=== PATIENT | female | born 1985 | race Hispanic/Latino ===

== ENCOUNTER 2020-07-07 18:52 | Emergency (ER) | payer BC ==
--- OUTSIDE RECORDS SUMMARY | 2020-07-07 18:55 | XMS REPORT | Summary of Care ---
:1985 Author Organization [facility] Address [address] [place] [address] Care Team Providers Name Role Phone Pcp, Does Not Have A Primary Care Provider Reason for Visit Reason Comments LAB Exposure Headache RUNNY NOSE Encounter Details Date Type Department Care Team Description 04/10/2020 Laboratory Only [facility] Family Micha Johns, FORKLIFT TRUCK OPERATOR [address] [place] [address] Exposure to Medicine - [place], Adc Fam Pob I SARS-associated [address] [facility] coronaviru s ([address] Drive Dx) [place] [address] Allergies No Known Allergiesdocumented as of this encounter (statuses as of 04/10/2020) Medications Medication Sig Dispensed Refills Start Date End Date Status proMETHazine Take 1 Tab by 12 Tab 0 05/15/2015 Ac tive (PHENERGAN) 25 mg mouth every 6 tablet (six) hours as needed for Nausea and Vomiting (N/V). metFORMIN 1,000 mg Take 1,000 mg by 0 Active tablet mouth 2 (two) times daily with meals. fenofibrate micronized Take 134 mg by 0 Active 134 mg capsule mouth daily. benzonatate (TESSALON Take 1 capsule by 30 capsule 0 7 Active PERLES) 100 mg mouth 3 (three) capsuleIndications: times daily as Flu-like symptoms needed for Cough. documented as of this encounter (statuses as of 04/10/2020) Active Problems No known active problemsdocumented as of this encounter (statuses as of 04/10/2020) Social History Tobacco Use Types Packs/Day Years Used Date Never Smoker Sex Assigned at Date Recorded Not on file COVID-19 Exposure Response Date Recorded In the last month, have you been in contact with No / Unsure 04/10/2020 1:41 PM CDT someone who was confirmed or suspected to have Coronavirus / COVID-19? documented as of this encounter Last Filed Vital Signs Not on filedocumented in this encounter Nursing Notes Brisa Delgado RN - 04/10/2020 1:20 PM CDTAnn Suni Butler is a 34 year old female here for COVID Screening with a Nasopharyngeal Swab All droplet and contact precautions taken with appropriate PPE worn while interacting with patient. ? Goggles ? N95 Mask ? Gloves ? Gown RR 18 Pulse Ox 98% Patient educated on plan of care for visit, swabbing technique, risks and benefits of test and length of time to receive results. Verbal consent obtained to perform test. CDC Fact Sheet for Patients nCoV Diagnostic Panel dated 09/22/2019 and Factsheet What to Do if Sick with COVID 19 09/02/19 provided. Patient swabbed per appropriate nasopharyngeal technique, and patient tolerated well. Patient was discharged from the testing clinic in stable condition. Brisa Delgado RN 04/10/2020 1:41 PM documented in this encounter Plan of Treatment Name Type Priority Associated Diagnoses Order S chedule COVID-19 (PCR MOLECULAR LAB Routine Exposure to Expe cted: 04/10/2020, TESTING) SARS-associated Expires: 08/2020 coronavirus documented as of this encounter Results Not on filedocumented in this encounter Visit Diagnoses Diagnosis Exposure to SARS-associated coronavirus - Primary documented in this encounter Additional Health Concerns Infection Onset Date Last Indicated Resolved Time COVID-19 Rule Out 04/10/2020 04/10/2020 documented as of this encounter Insurance Payer Benefit Plan Subscriber ID Effective Dates Phone Address Type / Group [facility] [id number] 2014-Prese [phone] [place] P[place] - OUT OF nt [id number] [place] [address] documented as of this encounter
--- OUTSIDE RECORDS SUMMARY | 2020-07-07 18:55 | XMS REPORT | Continuity of Care Document ---
:1985 Author Organization [facility] t Address [address] [place] [address] Care Team Providers Name Role Phone Lab, Fam Pob I Attending Clinician Unavailable Doctor Unassigned, Name Attending Clinician Unavailable Pcp, Does Not Have A Attending Clinician Problems This patient has no known problems. Allergies, Adverse Reactions, Alerts This patient has no known allergies or adverse reactions. Medications This patient has no known medications. Procedures This patient has no known procedures. Encounters Start End Encounter Admission Attending Care Care Encounter Source Date/Time Date/Time Type Type Clinicians Facility Department ID 2019-09-18 Outpatient [facility] [address]i 16:06:36 lazaro Baer [facility] 2020-04-10 2020-04-10 Laboratory Lab, [facility] [id number] 13:33:36 13:53:36 Only Fam Pob I Health [id number] Force [id number] Professio [phone] nal [address] 2020-04-10 2020-04-10 Letter Doctor FAVIAN [id number] 00:00:00 00:00:00 (Out) Unassigned, CHRISTY [id number] [place] [facility] [id number] 2020-04-10 2020-04-10 Letter Pcp, [facility] [id number] 00:00:00 00:00:00 (Out) Patient Health [id number] Does Not Force [id number] Have A Professio [phone] nal [address] 2019-12-13 2019-12-13 Outpatient [facility] [id number] [facility] 06:10:00 06:10:00 [facility]-01[facility] 2019-01-23 Outpatient [facility] [id number] [facility] 16:41:00 16:41:00 lazaro Baer [facility] Results This patient has no known results.
--- OUTSIDE RECORDS SUMMARY | 2020-07-07 18:55 | XMS REPORT | Summary of Care ---
:1985 Author Organization [facility] Address [address] [place] [address] Care Team Providers Name Role Phone Pcp, Does Not Have A Primary Care Provider Encounter Details Date Type Department Care Team Description 04/10/2020 Letter (Out) [facility] Family Pcp, Patient Does Not Medicine [facility] Have A [address] [place] [address] [address] [place] [address] [place] [address] Allergies No Known Allergiesdocumented as of this [...] Signs Not on filedocumented in this encounter Plan of Treatment Not on filedocumented as of this encounter Results Not on filedocumented in this encounter Additional Health Concerns Infection Onset Date Last Indicated Resolved Time COVID-19 Rule Out 04/10/2020 04/10/2020 documented as of this encounter Insurance Payer Benefit Plan Subscriber ID Effective Dates Phone Address Type / Group [facility] [id number] 2014-Prese [phone] [place] P[place] - OUT OF nt [id number] [place] [address] documented as of this encounter
--- OUTSIDE RECORDS SUMMARY | 2020-07-07 18:55 | XMS REPORT | Summary of Care ---
:1985 Author Organization [facility] - Health Address [address] [place] [address] Care Team Providers Name Role Phone Pcp, Does Not Have A Primary Care Provider Encounter Details Date Type Department Care Team Description 04/10/2020 Letter (Out) [facility] MyChart Message s Doctor Unassigned, No [address] [facility] [place] [address] [address] [facility] [phone] [place] [address] Allergies No Known Allergiesdocumented as of this [...] Assigned at Date Recorded Not on file documented as of this encounter Last Filed Vital Signs Not on filedocumented in this encounter Plan of Treatment Not on filedocumented as of this encounter Results Not on filedocumented in this encounter Insurance Payer Benefit Plan Subscriber ID Effective Dates Phone Address Type / Group BCBS OF [facility] [id number] 2014-Prese [phone] P [place] P[place] - OUT OF nt [id number] [place] [address] documented as of this encounter
--- NOTE | 2020-07-07 20:46 | ER ---
Nurse's Notes [facility] Name: Rosaline Butler Age: 34 yrs Sex: Female : 1985 Arrival Date: 07/07/2020 Time: 18:56 Bed 20 Private MD: Diagnosis: Acute upper respiratory infection, unspecified Presentation: 07/07 19:12 Chief complaint: Patient states: Eyes burning, fever, JEFFERS, runny nose for 1 day. No ll1 N/V/D. Coronavirus screen: Client denies travel out of the [place] in the last 14 days. congestion, fatigue, fever, headache, Client presents with at least one sign or symptom that may indicate coronavirus-19. Standard/surgical mask placed on the client. Ebola Screen: Patient denies travel to an Ebola-affected area in the 21 days before illness onset. Initial Sepsis Screen: Does the patient meet any 2 criteria? HR > 90 bpm. No. Patient's initial sepsis screen is negative. Does the patient have a suspected source of infection? Yes: Other: nasal congestion/fever, JEFFERS. Risk Assessment: Do you want to hurt yourself or someone else? Patient reports no desire to harm self or others. Onset of symptoms was July 07, 2020. 19:12 Method Of Arrival: Ambulatory ll1 19:12 Acuity: NEIL 4 ll1 Historical: - Allergies: 19:15 No Known Allergies; ll1 - PMHx: 19:15 Diabetes - NIDDM; ll1 - PSHx: 19:15 ; lap band; ll1 - Immunization history:: Flu vaccine is up to date. - Social history:: Smoking status: Patient denies any tobacco usage or history of. Screenin:30 Abuse screen: Denies threats or abuse. Nutritional screening: No deficits noted. jb4 Tuberculosis screening: No symptoms or risk factors identified. Fall Risk None identified. Assessment: 19:30 General: Appears in no apparent distress. comfortable, Behavior is calm, cooperative, jb4 appropriate for age. Pain: Complains of pain in headache Pain does not radiate. Pain currently is 1 out of 10 on a pain scale. Neuro: Level of Consciousness is awake, alert, obeys commands, Oriented to person, place, time, situation. Cardiovascular: Respiratory: Airway is patent Respiratory effort is even, unlabored, Respiratory pattern is regular, symmetrical. GI: No signs and/or symptoms were reported involving the gastrointestinal system. : No signs and/or symptoms were reported regarding the genitourinary system. EENT: No signs and/or symptoms were reported regarding the EENT system. Derm: Skin is intact, Skin is pink, warm \T\ dry. Musculoskeletal: Circulation, motion, and sensation intact. Range of motion: intact in all extremities. 20:30 Reassessment: Patient appears in no apparent distress at this time. Patient and/or jb4 family updated on plan of care and expected duration. Pain level reassessed. Patient is alert, oriented x 3, equal unlabored respirations, skin warm/dry/pink. Vital Signs: 19:12 BP 142 / 87; Pulse 114; Resp 18; Temp 99.6; Pulse Ox 98% on R/A; Weight 99.79 kg; ll1 Height 5 ft. 6 in. (167.64 cm); Pain 1/10; 21:12 BP 107 / 73; Pulse 96; Resp 16; Pulse Ox 98% on R/A; jb4 19:12 Body Mass Index 35.51 (99.79 kg, 167.64 cm) ll1 ED Course: 18:56 Patient arrived in ED. mr 19:14 Triage completed. ll1 19:15 Arm band placed on. ll1 19:16 Destinee Herrmann FNP-C is [facility]. kb 19:16 Obie Alford MD is Attending Physician. kb 19:18 Jose Turner MD is Attending Physician. kb 19:30 Patient has correct armband on for positive identification. Bed in low position. Call jb4 light in reach. Side rails up X 1. Pulse ox on. NIBP on. 19:57 Flu and/or RSV swab sent to lab. jp3 20:06 Ramiro Oviedo, RN is Primary Nurse. jb4 21:00 No provider procedures requiring assistance completed. Patient did not have IV access jb4 during this emergency room visit. Administered Medications: No medications were administered Outcome: 20:45 Discharge ordered by . kb 21:00 Discharged to home ambulatory. jb4 21:00 Condition: stable 21:00 Discharge instructions given to patient, Instructed on discharge instructions, follow up and referral plans. Demonstrated understanding of instructions, follow-up care. 21:13 Patient left the ED. jb4 Addendum: 07/09/2020 18:22 Addendum: COVID-19 Result: Negative result given to RN to notify pt. Notified pt of i w negative COVID 19 swab results. Pt advised that even with a negative test result they should remain in isolation until symptom free for 3 days without medication. Pt also advised to return to the ED for worsening symptoms. Signatures: Destinee Herrmann, FORD-C PROFESSOR OF SPANISH-Tea Haynes mr Marlee Jackson RN RN iw Ramiro Oviedo RN RN jb4 Waylon Enriquez jp3 Emma Paula RN RN ll1
--- NOTE | 2020-07-07 20:46 | EDPHYS ---
Physician Documentation [facility] Name: Rosaline Butler Age: 34 yrs Sex: Female : 1985 Arrival Date: 07/07/2020 Time: 18:56 Bed 20 Private MD: ED Physician Jose Turner HPI: 07/07 21:40 This 34 yrs old Female presents to ER via Ambulatory with complaints of Fever, kb Headache. 21:40 The patient or guardian reports flu symptoms, low-grade fever, myalgias. Onset: The kb symptoms/episode began/occurred today. Severity of symptoms: At their worst the symptoms were mild, moderate, in the emergency department the symptoms are unchanged. Modifying factors: The symptoms are alleviated by nothing, the symptoms are aggravated by nothing. Associated signs and symptoms: Pertinent positives: fever, rhinorrhea. The patient has not experienced similar symptoms in the past. The patient has not recently seen a physician. Historical: - Allergies: 19:15 No Known Allergies; ll1 - PMHx: 19:15 Diabetes - NIDDM; ll1 - PSHx: 19:15 ; lap band; ll1 - Immunization history:: Flu vaccine is up to date. - Social history:: Smoking status: Patient denies any tobacco usage or history of. ROS: 21:39 Cardiovascular: Negative for chest pain, palpitations, and edema, Respiratory: Negative kb for shortness of breath, cough, wheezing, and pleuritic chest pain, Abdomen/GI: Negative for abdominal pain, nausea, vomiting, diarrhea, and constipation, MS/Extremity: Negative for injury and deformity, Skin: Negative for injury, rash, and discoloration. 21:39 Constitutional: Positive for body aches, chills, fatigue, fever, malaise. 21:39 ENT: Positive for rhinorrhea. 21:39 Neuro: Positive for headache. Exam: 21:39 Constitutional: This is a well developed, well nourished patient who is awake, alert, kb and in no acute distress. Head/Face: Normocephalic, atraumatic. ENT: Nares patent. No nasal discharge, no septal abnormalities noted. Tympanic membranes are normal and external auditory canals are clear. Oropharynx with no redness, swelling, or masses, exudates, or evidence of obstruction, uvula midline. Mucous membranes moist. Chest/axilla: Normal chest wall appearance and motion. Nontender with no deformity. No lesions are appreciated. Cardiovascular: Regular rate and rhythm with a normal S1 and S2. No gallops, murmurs, or rubs. Normal PMI, no JVD. No pulse deficits. Respiratory: Lungs have equal breath sounds bilaterally, clear to auscultation and percussion. No rales, rhonchi or wheezes noted. No increased work of breathing, no retractions or nasal flaring. Abdomen/GI: Soft, non-tender, with normal bowel sounds. No distension or tympany. No guarding or rebound. No evidence of tenderness throughout. Skin: Warm, dry with normal turgor. Normal color with no rashes, no lesions, and no evidence of cellulitis. MS/ Extremity: Pulses equal, no cyanosis. Neurovascular intact. Full, normal range of motion. Neuro: Awake and alert, GCS 15, oriented to person, place, time, and situation. Cranial nerves II-XII grossly intact. Motor strength 5/5 in all extremities. Sensory grossly intact. Cerebellar exam normal. Normal gait. Vital Signs: 19:12 BP 142 / 87; Pulse 114; Resp 18; Temp 99.6; Pulse Ox 98% on R/A; Weight 99.79 kg; ll1 Height 5 ft. 6 in. (167.64 cm); Pain 1/10; 21:12 BP 107 / 73; Pulse 96; Resp 16; Pulse Ox 98% on R/A; jb4 19:12 Body Mass Index 35.51 (99.79 kg, 167.64 cm) ll1 MDM: 19:34 Patient medically screened. kb 21:39 Data reviewed: vital signs, nurses notes. Data interpreted: Pulse oximetry: on room air kb is 98 %. Interpretation: normal. Counseling: I had a detailed discussion with the patient and/or guardian regarding: the historical points, exam findings, and any diagnostic results supporting the discharge/admit diagnosis, lab results, the need for outpatient follow up, a family practitioner, to return to the emergency department if symptoms worsen or persist or if there are any questions or concerns that arise at home. 07/07 19:19 Order name: Flu; Complete Time: 20:51 kb 07/07 20:45 Order name: COVID-19 kb Administered Medications: No medications were administered Disposition: 07/08 06:49 Co-signature as Attending Physician, Jose Turner MD I agree with the assessment and anuel plan of care. Disposition: 07/07/20 20:45 Discharged to Home. Impression: Acute upper respiratory infection, unspecified. - Condition is Stable. - Discharge Instructions: Upper Respiratory Infection, Adult, [place], COVID-19. - Medication Reconciliation Form, Thank You Letter, Antibiotic Education, Prescription Opioid Use form. - Follow up: Emergency Department; When: As needed; Reason: Worsening of condition. Follow up: Private Physician; When: 2 - 3 days; Reason: Recheck today's complaints, Continuance of care, Re-evaluation by your physician. Signatures: Dispatcher [employer] EDMS Destinee Herrmann, COURT ORDERLY-C COURT ORDERLY-Ckb Jose Turner MD MD cha Bryson, James RN RN jb4 Emma Paula RN RN ll1 Corrections: (The following items were deleted from the chart) 07/07 20:46 20:45 07/07/2020 20:45 Discharged to Home. Impression: Acute upper respiratory kb infection, unspecified. Condition is Stable. Forms are Medication Reconciliation Form, Thank You Letter, Antibiotic Education, Prescription Opioid Use. kb 21:13 20:46 07/07/2020 20:45 Discharged to Home. Impression: Acute upper respiratory jb4 infection, unspecified. Condition is Stable. Forms are Medication Reconciliation Form, Thank You Letter, Antibiotic Education, Prescription Opioid Use. Follow up: Emergency Department; When: As needed; Reason: Worsening of condition. Follow up: Private Physician; When: 2 - 3 days; Reason: Recheck today's complaints, Continuance of care, Re-evaluation by your physician. kb
[2020-07-07 21:16] VITALS: TEMP 99.6; O2SAT 98
[2020-07-07 21:18] VITALS: BP 107/73
== END 2020-07-07 21:13 | disposition home or self-care (01) ==
LOC: ER 18:52
DX: J06.9 Acute upper respiratory infection, unspecified (principal); Z20.828 Contact with and (suspected) exposure to other viral communicable diseases; E11.9 Type 2 diabetes mellitus without complications
CPT/HCPCS: 87804; 99283; U0002

== ENCOUNTER 2024-04-15 04:44 | Inpatient (IN) | payer BC, SELFPAY ==
--- OUTSIDE RECORDS SUMMARY | 2024-04-15 04:49 | XMS REPORT | Continuity of Care Document ---
Author Name Unknown Address [address] [facility]. [address] [place] [address] [facility] thconnect Address [address] [facility] [address] [place] [address] Support Name Relationship Address Phone NANCY HAN [address] [place] [address] CARTERALISONALBERTGIUSEPPE KOO [address] [place] [address] NANCY HAN [address] [place] [address] NOT OBTAINED Personal Relationship Unknown Unavai radha NANCY HAN [address] [place] [id number] Nancy Han Spouse [address] [place] [address] Fernando Han Personal Relationship [address] [place] [id number] Nancy Han Emergency Contact [address] [place] [address] NANCY MERIDA CSN [address] [place] [address] 1 NANCY [address] [place] [address] Unavailable 2 Personal Relationship [address] [place] [address] Unavailable NANCY HAN Unknown [phone] ALBRET [address] [place] [address] Unavailable 3 ALBERT [address] [facility] [place] [address] Unavailable 4 Personal Relationship [address] [place] [address] Unavailable ALBERT MACHADO [facility] [address] [place] [address] 1 NANCY Unknown Unavailable Unavailable Personal Relationship [address] [place] [address] Unavailable NANCY HAN X [address] [place] [address] Unavailable PATIENT, NO ONE ELSE PER Personal Relationship Unknown Unavailable L Nancy Han Spouse [address] [place] [address] one else per patient, No Emergency Contact Unknown Unavailable Care Team Providers Care Food Service Counter Clerk Name Role Phone Garfield HULL, Ollie [place] Primary Care Physician Sharon Yin Attending Clinician Unavail able JOAQUIN EDGAR Attending Clinician Un available TAM CONNORS Attending Clinician Unavailable Tam Connors MD Attending Clinician [phone] TASHA COBB Attending Clinician Unavailable Tasha Cobb MD Attending Clinician [phone] MANUEL PATHAK Attending Clinician Unav Rishabh Wilcox Attending Clinician Unavailable Edelmira Roberson LVN Attending Clinician [phone] Doctor Unassigned, Chamizal Attending Clinician U LAUREN Gannon Attending Clinician UnavailLauren Bell MD Attending Clinician [phone] CHAITANYA BLOOM Attending Clinician U OLLIE Mari Attending Clinician Unava ilLUCY Faye Attending Clinician UnavailAyala Zambrano MD Attending Clinician [phone] ROSENDO KEENAN Attending Clinician Unavailable Nurse, [facility] Surgery Gu Attending Clinician Rosendo Steward MD Attending Clinician [phone] Only, [facility] Test Attending Clinician Unavailable CHARITO SHER Attending Clinician Unavailable Charito Nieves Attending Clinician [phone] Lucy Persaud Attending Clinician [phone] Ashish Ridley MD Attending Clinician [phone] UNKNOWN, ATTENDING Attending Clinician Unavailab ean Cortes MD, Yelena Fuller Attending Clinician + Unknown, Attending Attending Clinician Unavailab Ahsan Thapa MD Attending Clinician [phone] VALENCIA FREEMAN Attending Clinician Unavailable PROVIDER, EVISIT Attending Clinician Unavailable LAB90 Attending Clinician Unavailable Garfield HULL, Ollie [place] Attending Clinician [phone] SCOTT YANG Attending Clinician Unavailabl e MINISTERIOLUPE BUCHANAN Attending Clinician Unavailabl e Only, Ang Db Test Attending Clinician Unavailabl e Ministerio NURSE'S COMPANIONLupe Attending Clinician [phone] Kizzy Harden NP Attending Clinician [phone] Lab, Adc Fam Pob I Attending Clinician Unavailab Yolanda Toscano Attending Clinician [phone] YOLANDA JOHNS Attending Clinician Unavailable Pcp, Patient Does Not Have A Attending Clinician JOAQUIN EDGAR Admitting Clinician Un available TAM CONNORS Admitting Clinician Unavailable Simeon Ordonez Admitting Clinician LAUREN Mullen Admitting Clinician UnavailLauren Bell MD Admitting Clinician [phone] ROSENDO KEENAN Admitting Clinician Unavailable Rosendo Keenan MD Admitting Clinician [phone] CHARITO SHER Admitting Clinician Unavailable AHSAN MALIN Admitting Clinician Unavailable Ahsan Malin MD Admitting Clinician [phone] Payers Payer Name Policy Type Policy Number Effective Date Expirati on Date Source [facility] [id number] 2014 00:00:00 [facility] 6 [id number] 2023 00:00:00 [facility] 2 [id number] 2022 00:00:00 Problems Condition Name Condition Details Condition Category Status Onset Date Resolution Date Last Treatment Date Treating Clinician Comments Source Pancreatit is, unspecifie d pancreatit is type Pancreatit is, unspecifie d pancreatit is type Disease Active 04-06 00:00: [address] 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 Added automatic ally from request for surgery [id number] [facility] Calculus of kidney Calculus of kidney Disease Active 01-31 00:00: 00 Overview: Formattin g of this note might be different from the original. Added automatic ally from request for surgery [id number] [facility] [id number] Type 2 diabetes mellitus without complicati on, without long-term current use of insulin Problem [facility] [id number] Attention deficit hyperactiv ity disorder (ADHD), predominan tly inattentiv e type Problem [facility] [id number] Microcytic anemia Problem [facility] [id number] Fatty liver Problem [facility] [id number] Mixed hyperlipid emia Problem [facility] [id number] Hypertrigl yceridemia Problem [facility] [id number] Morbid (severe) obesity due to excess calories Problem [facility] [id number] NICK (generaliz ed anxiety disorder) Problem [facility] [id number] BMI 33.0-33.9, adult Problem [facility] [id number] Familial hypertrigl yceridemia Problem [facility] [id number] History of pancreatit is Problem [facility] [id number] PCOS (polycysti c ovarian syndrome) Problem [facility] [id number] Vitamin D deficiency Problem [facility] Allergies, Adverse Reactions, Alerts Allergy Name Allergy Type Status Severity Reaction(s) Onset Date Inactive Date Treating Clinician Comments Source No Known Allergie s DA Active U 2022-07 00:00: 00 [facility] No Known Allergie s DA Active U 07-18 00:00: 00 [facility] NO KNOWN ALLERGIE S Drug Class Active [facility] Social History Social Habit Start Date Stop Date Quantity Comments Source Gender identity 2021-08-06 09:39:59 Identifies as female gender (finding) Meghan Plascencia - External History of Tobacco Use [facility] Sex Assigned At [facility] Alcoholic beverage intake 2023-11-18 00:00:00 2023-11-18 00:00:00 Lifetime non-drinker (finding) [facility] Alcohol intake 2023-04-14 00:00:00 2023-04-14 00:00:00 Lifetime non-drinker (finding) [facility] Tobacco use and exposure 2023-04-06 00:00:00 2023-04-06 00:00:00 Smokeless tobacco non-user [facility] Exposure to SARS-CoV-2 (event) 2022-02-04 00:00:00 2022-02-14 12:47:00 Not sure [facility] History of Social function 2022-02-10 00:00:00 2022-02-10 00:00:00 [facility] Smoking Status Start Date Stop Date Source Never smoked tobacco [facility] Medications Ordered Medication Name Filled Medication Name Start Date Stop Date Current Medication? Ordering Clinician Indication Dosage Frequency Signature (SIG) Comments Components Source Phentermine HCl 37.5 MG Phentermine HCl 37.5 MG 625 00:00: 00 No QD Phentermin e HCl 37.5 MG iopamidol (ISOVUE 370-500 mL) injection 100 mL 11-18 03:00: 00 11-18 03:00 :00 No [id number] 100mL 100 mL, Intravenou s, ONCE, 1 dose, On 11/18/23 at 2200, Routine [facility] FENTanyl PF (SUBLIMAZE (PF)) injection 50 mcg 11-18:15: 00 11-18 00:21 :00 No 50ug 50 mcg, Slow IV Push, ONCE, 1 dose, On 11/18/23 at 2015, Routine [facility] cefTRIAXone (ROCEPHIN) 1,000 mg in NaCl 0.9% (NS) 100 mL MINI-BAG 11-18 00:30: 00 11-18 01:32 :00 No 1000mg 1,000 mg, IV Piggyback, ONCE, 1 dose, On 11/18/23 at 1930, Administer over 30 Minutes, 100 mL, Reason for Anti-Infec tive: Documented Infection, Documented Infection Site: Urine, Duration of Therapy: Once (ED) [facility] famotidine (PEPCID (PF)) injection 20 mg 11-17 23:15: 00 11-17 22:28 :00 No 20mg 20 mg, Slow IV Push, ONCE NOW, 1 dose, On [facility] 11/18/23 at 1815, LISA [facility] hyoscyamine sulfate (LEVSIN/SL) sublingual tablet 0.25 mg 11-17 23:15: 00 11-17 22:25 :00 No .25mg 0.25 mg, Sublingual , ONCE NOW, 1 dose, On [facility] 11/18/23 at 1815, Routine [facility] NaCl 0.9% (NS) bolus infusion 1,000 mL 11-17 23:00: 00 11-17 23:16 :00 No 1000mL at 999 mL/hr, 1,000 mL, IV Piggyback, ONCE, 1 dose, On 11/18/23 at 1800, STAT [facility] ketorolac (TORADOL) injection 30 mg 11-17 23:00: 00 11-17 22:29 :00 No 30mg 30 mg, Slow IV Push, ONCE NOW, 1 dose, On 11/18/23 at 1800, LISA [facility] ondansetron 4 mg disintegrat ing tablet 11-17 00:00: 00 Yes [id number] 4mg Take 1 tablet by mouth every 8 (eight) hours as needed for Nausea and Vomiting (N/V). [facility] cefpodoxime 100 mg tablet 11-17 00:00: 00 11-25 04:59 :00 No [id number] 100mg Take 1 tablet by mouth in the morning and 1 tablet in the evening. Do all this for [address] [facility] HYDROcodone -acetaminop hen 5-325 mg tablet 11-17 00:00: 00 11-25 04:59 :00 No [id number] 1{tbl} Take 1 tablet by mouth every 4 (four) hours as needed for Pain (scale 1-3) for up to 7 days. Indication s: acute pain [facility] BD Insulin Syringe Ultrafine 30G X 1/2" 0.5 ML BD Insulin Syringe Ultrafine 30G X 1/2" 0.5 ML 10-02 00:00: 00 No BD Insulin Syringe Ultrafine 30G X 1/2" 0.5 ML Lantus 100 UNIT/ML Lantus 100 UNIT/ML 09-21 00:00: 00 No QD Lantus 100 UNIT/ML Iron (Ferrous Sulfate) 325 (65 Fe) MG Iron (Ferrous Sulfate) 325 (65 Fe) MG 09-21 00:00: 00 No 1{table t} Iron (Ferrous Sulfate) 325 (65 Fe) MG Fish Oil Double Strength 1200 MG Fish Oil Double Strength 1200 MG 09-21 00:00: 00 No 1{capsu le} TID Fish Oil Double Strength 1200 MG ondansetron (ZOFRAN-ODT ) disintegrat ing tablet 4 mg 08-15 22:45: 00 08-15 22:18 :00 No 4mg 4 mg, Oral, ONCE, 1 dose, On Mon08/15/23 at 1645, [facility] acetaminoph en (TYLENOL) tablet 975 mg 08-15 22:15: 00 08-15 21:08 :00 No 975mg 975 mg, Oral, ONCE, 1 dose, On Mon08/15/23 at 1615, LISA [facility] penicillin g benzathine (BICILLIN L-A) injection 1.2 Million Units 08-15 22:00: 00 08-15 22:15 :00 No 1.210 1.2 Million Units, Intramuscu lar, ONCE, 1 dose, On Mon08/15/23 at 1600, LISA
Re ason for Anti-Infec tive: Documented Infection< br>Documen myra Infection Site: HEENT
D uration of Therapy: Other (see Comments) [facility] HYDROcodone -acetaminop hen (NORCO) 10-325 mg tablet 1 tablet 08-15 21:55: 32 Yes 1{tbl} 1 tablet, Oral, Q6HPRN, Starting on Mon08/15/23 at 1555, Until Discontinu ed, LISA, Pain (scale 4-6) [facility] ibuprofen (IBU) tablet 600 mg 08-15 21:15: 00 08-15 21:08 :00 No 600mg 600 mg, Oral, ONCE, 1 dose, On Mon08/15/23 at 1515, LISA [facility] ondansetron 4 mg disintegrat ing tablet 08-15 00:00: 00 11-17 00:00 :00 No [id number] 4mg Take 1 tablet by mouth every 4 (four) hours as needed for Nausea and Vomiting (N/V). [facility] naproxen 500 mg tablet 08-15 00:00: 00 08-26 05:59 :00 No [id number] 500mg Take 1 tablet by mouth in the morning and 1 tablet in the evening. Take with meals. Do all this for [address] [facility] HYDROcodone -acetaminop hen 5-325 mg tablet 08-15 00:00: 00 08-23 05:59 :00 No [id number] 1{tbl} Take 1-2 tablets by mouth every 6 (six) hours as needed for Pain (scale 4-6) for up to 7 days. Indication s: acute pain [facility] Vitamin D3 125 MCG (5000 UT) Vitamin D3 125 MCG (5000 UT) 1-03 00:00: 00 No 1{capsu le} QD Vitamin D3 125 MCG (5000 UT) cetirizine 10 mg tablet 2022-07 0-08 00:00: 00 Yes [id number] 10mg Take 1 tablet by mouth in the morning. [facility] amLODIPine 5 mg tablet 2022-07 00:00: 00 05-17 05:59 :00 No [id number] 5mg Take 1 tablet by mouth in the morning for [address] [facility] ferrous sulfate 325 mg (65 mg iron) tablet 2022-07 00:00: 00 05-17 05:59 :00 No [id number] 325mg Take 1 tablet by mouth in the morning for [address] [facility] ibuprofen 400 mg tablet 2022-07 00:00: 00 Yes [id number] 400mg Take 1 tablet by mouth every 8 (eight) hours as needed for Temp > 38.[address] [facility] acetaminoph en 325 mg tablet 2022-07 0 00:00: 00 04-15 04:59 :00 No [id number] 650mg Take 2 tablets by mouth every 6 (six) hours as needed for Temp > 38.5 C or Pain (scale 1-3). [facility] lisinopriL 20 mg tablet 2022-07 0 00:00: 00 05-16 05:59 :00 No [id number] 20mg Take 1 tablet by mouth in the morning and 1 tablet in the evening. Do all this for [address] [facility] LOVAZA, omega-3-aci d ethyl esters, 1 gram capsule 2022-07 0 00:00: 00 05-16 05:59 :00 No [id number] 2g Take 2 capsules by mouth in the morning and 2 capsules in the evening. Do all this for [address] [facility] ferrous sulfate tablet 325 mg 2022-07 14:00: 00 Yes 325mg 325 mg, Oral, DAILY, First dose on Mon04/14/23 at 0900, Until Discontinu ed, [facility] KCL (KLOR-CON M20) tablet 40 mEq 2022-07 0 05:22: 00 04-13 05:43 :00 No 40meq 40 mEq, Oral, ONCE, 1 dose, On Kathy 04/13/23 at 0030, [facility]ine [facility] iopamidol (ISOVUE 370-500 mL) injection 80 mL 2022-07 0 01:15: 00 04-13 01:15 :00 No [id number] 80mL 80 mL, Intravenou s, ONCE, 1 dose, On Mon04/12/23 at 2015, Routine [facility] sennosides- docusate sodium (SENOKOT-S) 8.6-50 mg per tablet 1 tablet 2022-07 01:00: 00 Yes 1{tbl} 1 tablet, Oral, BID, First dose on Mon04/10/23 at 2000, Until Discontinu ed, Routine [facility] ibuprofen (IBU) tablet 400 mg 2022-07 22:38: 28 Yes 400mg 400 mg, Oral, Q8HPRN, Starting on Mon04/10/23 at 1738, Until Discontinu ed, Routine, Temp > 38.[address] [facility] polyethylen e glycol 3350 powder 17 g 2022-07 22:15: 00 Yes 17g 17 g, Oral, DAILY, First dose on Mon04/10/23 at 1715, Until Discontinu ed, Routine [facility] ceFAZolin (ANCEF) 2,000 mg in NaCl 0.9% (NS) 100 mL MINI-BAG 2022-07 21:15: 00 04-14 16:24 :05 No 2000mg 2,000 mg, Intravenou s, Q8H ABX, 21 doses, First dose on Mon04/10/23 at 1615, Last dose on Mon04/17/23 at 0815, Administer over 30 Minutes, 100 mL
Reas on for Anti-Infec tive: Documented Infection< br>Documen myra Infection Site: Urine
D uration of Therapy: 7 days [facility] vancomycin 1,250 mg in NaCl 0.9% (NS) 250 mL VIAL-MATE IV piggyback 2022-07 17:45: 00 04-10 20:03 :45 No 1250mg 1,250 mg, IV Piggyback, Q8H ABX, First dose on Mon04/10/23 at 1245, Until Discontinu ed, Administer over 90 Minutes, 250 mL
Reas on for Anti-Infec tive: Documented Infection< br>Documen myra Infection Site: Urine
D uration of Therapy: [address] [facility] meropenem (MERREM) 1,000 mg in NaCl 0.9% (NS) 100 mL MINI-BAG 2022-07 14:00: 00 04-10 20:03 :45 No 1000mg 1,000 mg, IV Piggyback, Q8H ABX, 21 doses, First dose (after last modificati on) on Mon04/10/23 at 0900, Last dose on Mon04/17/23 at 0100, Administer over 3 Hours, 100 mL
Rest ricted use approved by: [facility]
Reason for Anti-Infec tive: Documented Infection< br>Documen myra Infection Site: Abdominal< br>Duratio n of Therapy: [address] [facility] KCL (KLOR-CON M20) tablet 40 mEq 04-08 21:15: 00 04-08 21:29 :00 No 40meq 40 mEq, Oral, ONCE, 1 dose, On Mon04/08/23 at 1615, Routine [facility] vancomycin (VANCOCIN) 1,500 mg in NaCl 0.9% (NS) 500 mL VIAL-MATE IV piggyback 04-08 20:30: 00 04-10 13:57 :46 No 15mg/kg 1,500 mg (rounded from 1,597.5 mg = 15 mg/kg ?106.5 kg), IV Piggyback, Q12H ABX, 14 doses, First dose on 04/08/23 at 1545, Last dose on Mon04/15/23 at 0345, Administer over 90 Minutes, 500 mL
Reas on for Anti-Infec tive: Documented Infection< br>Documen myra Infection Site: Urine
D uration of Therapy: [address] [facility] calcium gluconate 2 g in NaCl 100 mL (ISO-OSM) RTU IV infusion 2 g 04-08 00:45: 00 04-08 01:52 :00 No 2g 2 g, IV Infusion, at 200 mL/hr Administer over 30 Minutes, ONCE, 1 dose, On Mon04/07/23 at 1945, Routine [facility] ketorolac (TORADOL) injection 30 mg 04-07 23:30: 00 04-08 17:23 :00 No 30mg 30 mg, Slow IV Push, Q6H, 4 doses, First dose on Mon04/07/23 at 1830, Last dose on Mon04/08/23 at 1200, Routine [facility] butalbital- acetaminoph en-caff (ESGIC) 50-325-40 mg tablet 1 tablet 04-07 21:24: 27 Yes 1{tbl} 1 tablet, Oral, Q4HPRN, Starting on Mon04/07/23 at 1624, Until Discontinu ed, Routine, Headache [facility] Sliding Scale Insulin - Lispro (HumaLOG) 04-07 17:00: 00 Yes Subcutaneo us, TID MEALS+HS, First dose on Mon04/07/23 at 1200, Until Discontinu ed, Routine [facility] cefTRIAXone (ROCEPHIN) 1,000 mg in NaCl 0.9% (NS) 100 mL MINI-BAG 04-07 16:15: 00 04-10 13:18 :22 No 1000mg 1,000 mg, IV Piggyback, Q24H ABX, 7 doses, First dose on Mon04/07/23 at 1115, Last dose on Mon04/13/23 at 1115, Administer over 30 Minutes, 100 mL
Reas on for Anti-Infec tive: Documented Infection< br>Documen myra Infection Site: Urine
D uration of Therapy: [address] [facility] dextrose 50 % in water (D50W) injection 25 mL 04-07 15:12: 53 Yes 25mL 25 mL, Slow IV Push, PRN, Starting on Mon04/07/23 at 1012, Until Discontinu ed, LISA, Blood Glucose < or = 70 mg/dL and patient is NPO, unable to swallow or has mental status changes. [facility] cetirizine (ZYRTEC) tablet 10 mg 04-07 14:00: 00 Yes 10mg 10 mg, Oral, DAILY, First dose on Mon04/07/23 at 0900, Until Discontinu ed, Routine [facility] D5W 0.9% NaCl (NS) IV infusion 1,000 mL 04-07 13:48: 14 04-07 17:39 :36 No 1000mL at 75 mL/hr, 1,000 mL, IV Infusion, PRN - SEE INSTRUCTIO NS, Starting on Mon04/07/23 at 0848, Until Mon04/07/23 at 1239, LISA [facility] iopamidol (ISOVUE 370-500 mL) injection 85 mL 04-07 03:15: 00 04-07 03:15 :00 No [id number] 85mL 85 mL, Intravenou s, ONCE, 1 dose, On Mon04/06/23 at 2215, Routine [facility] ketorolac (TORADOL) injection 30 mg 04-07 02:00: 00 04-07 01:54 :00 No 30mg 30 mg, Slow IV Push, ONCE, 1 dose, On Mon04/06/23 at 2100, Routine [facility] enoxaparin (LOVENOX) injection 40 mg 04-06 22:00: 00 04-07 15:06 :57 No 40mg 40 mg, Subcutaneo us, DAILY, First dose on Mon04/06/23 at 1700, Until Discontinu ed, Routine [facility] amLODIPine (NORVASC) tablet 5 mg 04-06 20:00: 00 Yes 5mg 5 mg, Oral, DAILY, First dose on Mon04/06/23 at 1500, Until Discontinu ed, Routine [facility] HYDROmorpho ne (DILAUDID) injection 0.5 mg 04-06 18:55: 18 04-08 12:46 :47 No .5mg 0.5 mg, Slow IV Push, Q4HPRN, Starting on Mon04/06/23 at 1355, Until 04/08/23 at 0746, Routine, Pain (scale 7-10)
U se approved by (Faculty): [facility] PROVIDER [facility] HYDROcodone -acetaminop hen (NORCO 5) 5-325 mg tablet 1 tablet 04-06 18:55: 04 Yes 1{tbl} 1 tablet, Oral, Q6HPRN, Starting on Mon04/06/23 at 1355, Until Discontinu ed, Routine, Pain (scale 4-6) [facility] acetaminoph en (TYLENOL) tablet 650 mg 04-06 18:54: 48 Yes 650mg 650 mg, Oral, Q6HPRN, Starting on Mon04/06/23 at 1354, Until Discontinu ed, Routine, Temp > 38 C, Pain (scale 1-3) [facility] lisinopriL (PRINIVIL,Z ESTRIL) tablet 20 mg 04-06 15:45: 00 Yes 20mg 20 mg, Oral, BID, First dose on Mon04/06/23 at 1045, Until Discontinu ed, Routine [facility] insulin regular in 0.9 % NaCl (MYXREDLIN) 100 unit/100 mL (1 unit/mL) RTU IV infusion 04-06 15:45: 00 04-07 13:48 :52 No .15U/kg /h 0.15 Units/kg/h r ?105 kg (15.75 mL/hr), IV Infusion, CONTINUOUS , Starting on Mon04/06/[address] insulin infusion at 0.1 u/kg/hr and keep fixed at that rate. Hold insulin infusion x 1 hour and NHO if BG < 140 mg/dL for instructio ns to increase dextrose fluids. Restart once BG >/= 140 mg/dL
[facility] LOVAZA (omega-3-ac id ethyl esters) capsule 2 g 04-06 13:00: 00 Yes 2g 2 g, Oral, TID, First dose on Mon04/06/23 at 0800, Until Discontinu ed, Routine [facility] gemfibroziL (LOPID) tablet 600 mg 04-06 13:00: 00 Yes 600mg 600 mg, Oral, TID, First dose on Mon04/06/23 at 0800, Until Discontinu ed, Routine [facility] HYDROmorpho ne (DILAUDID) injection 0.5 mg 04-06 12:47: 47 04-06 18:55 :28 No .5mg 0.5 mg, Slow IV Push, Q4HPRN, Starting on Mon04/06/23 at 0747, Until Mon04/06/23 at 1355, Routine, Pain (scale 4-6), Pain (scale 7-10)
U se approved by (Faculty): [facility] PROVIDER [facility] insulin regular in 0.9 % NaCl (MYXREDLIN) 100 unit/100 mL (1 unit/mL) RTU IV infusion 04-06 10:30: 00 04-06 15:43 :28 No .1U/kg/ h 0.1 Units/kg/h r ?105 kg (10.5 mL/hr), IV Infusion, CONTINUOUS , Starting on Mon04/06/[address] insulin infusion at 0.1 u/kg/hr and keep fixed at that rate. Hold insulin infusion x 1 hour and NHO if BG < 140 mg/dL for instructio ns to increase dextrose fluids. Restart once BG >/= 140 mg/dL
[facility] dextrose 10% (D10W) bolus infusion 250 mL 04-06 09:16: 56 Yes 250mL 250 mL, IV Infusion, PRN - SEE INSTRUCTIO NS, Administer over 60 Minutes, Other, If blood glucose is < or = 70 mg/dL and patient is unable to swallow or has mental status changes, Starting on Kathy 04/06/23 at 0416
If blood glucose is < or = 70 mg/dL and patient is unable to swallow or has mental status changes (Give glucagon order if patient needs fluid restrictio n): IF IV access available: Dextrose 10%. 1. 125 mL (? bag) of D10W IV infusion - equivalent to 12.5 g dextrose 2. Blood glucose - draw blood glucose 15 minutes after D10W Administra tion. 3. If blood glucose is < 80 mg/dL, repeat.
[facility] glucagon (GLUCAGEN DIAGNOSTIC KIT) injection 1 mg 04-06 09:16: 33 Yes 1mg 1 mg, Intramuscu lar, PRN, Starting on Mon04/06/23 at 0416, Until Discontinu ed, LISA, Blood Glucose < or = 70 mg/dL and patient is NPO, unable to swallow or has mental changes. [facility] D5W 0.9% NaCl (NS) IV infusion 1,000 mL 04-06 09:08: 29 04-07 13:48 :52 No 1000mL at 200 mL/hr, 1,000 mL, IV Infusion, PRN - SEE INSTRUCTIO NS, Starting on Mon04/06/23 at 0408, Until Mon04/07/23 at 0848, LISA [facility] ondansetron (ZOFRAN (PF)) injection 4 mg 04-06 08:20: 30 Yes 4mg 4 mg, Slow IV Push, Q6HPRN, Starting on Mon04/06/23 at 0320, Until Discontinu ed, Routine, Nausea and Vomiting (N/V) [facility] morpHINE (2 mg/mL) injection 2 mg 04-06 08:20: 16 04-06 12:48 :19 No 2mg 2 mg, Intravenou s, Q3HPRN, Starting on Mon04/06/23 at 0320, Until Mon04/06/23 at 0748, Routine, Pain (scale 7-10), Pain (scale 4-6) [facility] metFORMIN 1,000 mg tablet 04-06 03:22: 17 04-06 00:00 :00 No 1000mg Take 1,000 mg by mouth 2 (two) times daily with meals. [facility] levoFLOXaci n (Levaquin) 750 MG oral Tablet 10-19 00:00: 00 Yes [id number] 750mg Take 1 tablet (750 mg total) by mouth daily Meghan willis Phenazopyri dine HCl (Pyridium) 100 MG oral Tablet 10-19 00:00: 00 Yes [id number] 100mg [id number] 3D Take 1 tablet (100 mg total) by mouth 3 times daily as needed for pain Meghan willis Semaglutide (2 mg/dose) 8 mg/3 mL SQ Solution Pen-Injecto r 08-16 00:00: 00 Yes [id number] 2mg Inject 2 mg into the skin once a week Meghan willis Tirzepatide (Mounjaro) 2.5 MG/0.5ML subcutaneou s Solution Pen-injecto r 1-30 00:00: 00 08-16 00:00 :00 No [id number] 2.5mg Inject 0.5 mL (2.5 mg total) into the skin once a week Meghan willis Tirzepatide 2.5 MG/0.5ML subcutaneou s Solution Pen-injecto r 2021-07 2 00:00: 00 Yes [id number] 2.5mg Inject 0.5 mL (2.5 mg total) into the skin once a week Meghan willis Metformin HCl 1000 MG oral Tablet 03-06 00:00: 00 Yes [id number] 1000mg TAKE 1 TABLET (1,000 MG TOTAL) BY MOUTH IN THE MORNING AND 1 TABLET (1,000 MG TOTAL) IN THE EVENING. TAKE WITH MEALS. Meghan willis tamsulosin 0.4 mg 24 hr capsule 02-11 00:00: 00 04-06 00:00 :00 No [id number] .4mg Take 1 capsule by mouth every morning. [facility] cephALEXin 250 mg capsule 02-11 00:00: 00 02-17 04:59 :00 No [id number] 500mg Take 2 capsules by mouth every 12 (twelve) hours for [address] [facility] ondansetron (ZOFRAN (PF)) injection 4 mg 02-10 18:29: 24 Yes 4mg 4 mg, Slow IV Push, Q4HPRN, 1 dose, Starting on Kathy 02/10/22 at 1329, Until Discontinu ed, Routine, Nausea and Vomiting (N/V), DSU Recovery [facility] lactated ringers IV infusion 1,000 mL 02-10 17:45: 00 Yes 1000mL at 75 mL/hr, 1,000 mL, IV Infusion, CONTINUOUS , Starting on Kathy 02/10/22 at 1245, Until Discontinu ed, Routine, PACU [facility] FENTanyl PF (SUBLIMAZE (PF)) injection 25 mcg 02-10 17:32: 48 Yes 25ug 25 mcg, Slow IV Push, Q5MIN PRN, 4 doses, Starting on Kathy 02/10/22 at 1232, Until Discontinu ed, Routine, Pain (scale 4-6), PACU [facility] ondansetron (ZOFRAN (PF)) injection 4 mg 02-10 17:32: 48 Yes 4mg 4 mg, Slow IV Push, PRN, 1 dose, Starting on Kathy 02/10/22 at 1232, Until Discontinu ed, Routine, Nausea and Vomiting (N/V), PACU [facility] iohexoL (OMNIPAQUE 300-50 mL)) injection 02-10 15:47: 00 02-10 17:14 :13 No PRN, Starting on Kathy 02/10/22 at 1047, Until Kathy 02/10/22 at 1214, Routine, Intra-op [facility] water for irrigation irrigation solution 02-10 15:44: 00 02-10 17:14 :13 No PRN, Starting on Mon02/10/22 at 1044, Until Mon02/10/22 at 1214, Routine, Intra-op [facility] sodium chloride 0.9 % irrigation solution 02-10 15:44: 00 02-10 17:14 :13 No PRN, Starting on Mon02/10/22 at 1044, Until Mon02/10/22 at 1214, Intra-op [facility] metFORMIN 1,000 mg tablet 02-10 13:58: 39 Yes 1000mg Take 1,000 mg by mouth 2 (two) times daily with meals. [facility] enoxaparin (LOVENOX) injection 40 mg 02-10 13:45: 00 02-10 13:42 :00 No 40mg 40 mg, Subcutaneo us, ONCE, 1 dose, On Mon02/10/22 at 0845, Routine, DSU Pre-op [facility] iopamidol (ISOVUE 370-500 mL) injection 55 mL 02-07 20:15: 00 02-07 20:15 :00 No [id number] 55mL 55 mL, Intravenou s, ONCE, 1 dose, On Mon02/07/22 at 1515, Routine [facility] metFORMIN 1,000 mg tablet 02-04 14:39: 53 Yes 1000mg Take 1,000 mg by mouth 2 (two) times daily with meals. [facility] ondansetron (ZOFRAN (PF)) injection 4 mg 02-03 17:54: 49 Yes 4mg 4 mg, Slow IV Push, Q4HPRN, 1 dose, Starting on Mon02/03/22 at 1254, Until Discontinu ed, Routine, Nausea and Vomiting (N/V), DSU Recovery [facility] traMADoL (ULTRAM) tablet 50 mg 02-03 17:54: 49 02-03 22:19 :58 No 50mg 50 mg, Oral, PRN, 1 dose, Starting on Kathy 02/03/22 at 1254, Until Kathy 02/03/22 at 1719, Routine, Pain (scale 4-6), [facility] FENTanyl PF (SUBLIMAZE (PF)) injection 25 mcg 02-03 17:54: 14 Yes 25ug 25 mcg, Slow IV Push, Q5MIN PRN, 4 doses, Starting on Kathy 02/03/22 at 1254, Until Discontinu ed, Routine, Pain (scale 4-6), PACU [facility] water for irrigation irrigation solution 02-03 16:25: 00 02-03 22:19 :58 No PRN, Starting on Kathy 02/03/22 at 1125, Until Kathy 02/03/22 at 1719, Routine, Intra-op [facility] sodium chloride 0.9 % irrigation solution 02-03 16:25: 00 02-03 22:19 :58 No PRN, Starting on Kathy 02/03/22 at 1125, Until Kathy 02/03/22 at 1719, Intra-op [facility] iohexoL (OMNIPAQUE 300-50 mL)) injection 02-03 15:56: 00 02-03 22:19 :58 No PRN, Starting on Kathy 02/03/22 at 1056, Until Kathy 02/03/22 at 1719, Routine, Intra-op [facility] metFORMIN 1,000 mg tablet 02-03 15:19: 55 Yes 1000mg Take 1,000 mg by mouth 2 (two) times daily with meals. [facility] lactated ringers IV infusion 1,000 mL 02-03 13:15: 00 02-03 13:14 :00 No 1000mL at 42 mL/hr, 1,000 mL, IV Infusion, ONCE, 1 dose, On Kathy 02/03/22 at 0815, Routine, DSU Pre-op [facility] metFORMIN 1,000 mg tablet 02-03 08:05: 00 Yes 1000mg Take 1,000 mg by mouth 2 (two) times daily with meals. [facility] oxybutynin chloride 5 mg tablet 02-03 00:00: 00 04-06 00:00 :00 No [id number] 5mg Take 1 tablet by mouth 3 (three) times daily as needed for Bladder spasms. For bladder spasms or stent pain. [facility] tamsulosin 0.4 mg 24 hr capsule 02-03 00:00: 00 02-11 00:00 :00 No [id number] .4mg Take 1 capsule by mouth in the morning. [facility] metFORMIN 1,000 mg tablet 01-31 15:59: 56 Yes 1000mg Take 1,000 mg by mouth 2 (two) times daily with meals. [facility] cephALEXin (KEFLEX) 500 mg capsule 01-31 00:00: 00 02-06 04:59 :00 No [id number] 500mg Take 1 capsule by mouth in the morning and 1 capsule in the evening. Do all this for [address] [facility] metFORMIN 1,000 mg tablet 01-27 18:11: 48 Yes 1000mg Take 1,000 mg by mouth 2 (two) times daily with meals. [facility] tamsulosin (FLOMAX) 0.4 mg 24 hr capsule 01-27 00:00: 00 04-06 00:00 :00 No [id number] .4mg Take 1 capsule by mouth in the morning. [facility] acetaminoph en (TYLENOL 8 HOUR) 650 mg CR tablet 01-27 00:00: 00 04-06 00:00 :00 No [id number] 650mg Take 1 tablet by mouth every 8 (eight) hours as needed for Pain. [facility] ketorolac 10 mg tablet 01-27 00:00: 00 04-06 00:00 :00 No [id number] 10mg Take 1 tablet by mouth every 6 (six) hours as needed for Pain (scale 4-6). [facility] Nitrofurant oin Monohyd Macro (Macrobid) 100 MG oral Capsule 01-14 00:00: 00 Yes [id number] 100mg Take 1 capsule (100 mg total) by mouth 2 times daily Meghan willis phentermine 37.5 mg tablet 01-12 00:00: 00 04-06 00:00 :00 No 37.5mg Take 1 tablet by mouth in the morning. Has not taken for more than two weeks [facility] Metformin HCl 1000 MG oral Tablet 12-08 13:52: 47 12-08 00:00 :00 No 1000mg Take 1,000 mg by mouth 2 times daily (with meals) Meghan Plascencia Metformin HCl 1000 MG oral Tablet 12-08 00:00: 00 Yes [id number] 1000mg Take 1 tablet (1,000 mg total) by mouth in the morning and 1 tablet (1,000 mg total) in the evening. Take with meals. Meghan Plascencia semaglutide (OZEMPIC) 1 mg/dose (2 mg/1.5 mL) PnIj 12-08 00:00: 00 04-15 00:00 :00 No 1mg inject 1 mg under the skin weekly. On Wednesdays [facility] Pseudoeph-B romphen-DM (Bromfed DM) 30-2-10 MG/5ML oral Syrup 08-06 00:00: 00 Yes [id number] 10mL Q.25D Take 10 mL by mouth 4 times daily as needed Meghan Plascecnia Benzonatate (Tessalon Perles) 100 MG oral Capsule 08-06 00:00: 00 Yes [id number] 100mg [id number] 3D Take 1 capsule (100 mg total) by mouth 3 times daily as needed for cough Meghan Plascencia Guaifenesin 1200 MG oral Tablet 12 Hour Sustained Release 08-06 00:00: 00 Yes [id number] 1{tbl} Take 1 tablet by mouth 2 times daily Meghan Plascencia Pseudoephed rine HCl (Sudafed 12 Hour) 120 MG oral Tablet 12 Hour Sustained Release 08-06 00:00: 00 Yes [id number] 120mg Take 1 tablet (120 mg total) by mouth every 12 hours Meghan Plascencia Albuterol HFA 108 (90 Base) MCG/ACT IN AERS 08-06 00:00: 00 Yes [id number] 2{puff} Q6H Inhale 2 puffs into the lungs every 6 hours as needed for wheezing Meghan Plascencia Naproxen 500 MG oral Tablet 2020-07 00:00: 00 Yes [id number] 9104 TAKE 1 TABLET BY MOUTH 2 TIMES DAILY NEEDED. Meghan Plascencia Metformin HCl 1000 MG oral Tablet 2020-07 13:22: 20 Yes 1000mg Take 1,000 mg by mouth 2 times daily (with meals) Meghan Plascencia Naproxen 500 MG oral Tablet 2020-07 00:00: 00 Yes [id number] 9104 500mg Q.5D Take 1 tablet (500 mg total) by mouth 2 times daily as needed Meghan Plascencia Phentermine HCl 37.5 MG oral Tablet 2020-07 00:00: 00 Yes Meghan Plascencia OZEMPIC (1 mg/dose) 2 mg/1.5 mL SQ Solution Pen-Injecto r 03-04 00:00: 00 12-08 00:00 :00 No [id number] 1mg Inject 1 mg into the skin once a week Meghan Plascencia OZEMPIC (1 mg/dose) 4 mg/3 mL SQ Solution Pen-Injecto r 03-04 00:00: 00 06-01 00:00 :00 No Meghan Plascencia benzonatate (TESSALON PERLES) 100 mg capsule 03-23 00:00: 00 01-31 00:00 :00 No [id number] 100mg Take 1 capsule by mouth 3 (three) times daily as needed for Cough. [facility] proMETHazin e (PHENERGAN) 25 mg tablet 2014-07 00:00: 00 01-31 00:00 :00 No 25mg Take 1 Tab by mouth every 6 (six) hours as needed for Nausea and Vomiting (N/V). [facility] Escitalopra m Oxalate 10 MG Escitalopra m Oxalate 10 MG No QD Escitalopr am Oxalate 10 MG glipiZIDE 5 MG glipiZIDE 5 MG No QD glipiZIDE 5 MG metFORMIN HCl 500 MG metFORMIN HCl 500 MG No 1{table t_with_ a_meal} BID metFORMIN HCl 500 MG Fenofibrate Micronized 134 MG Fenofibrate Micronized 134 MG No Fenofibrat e Micronized 134 MG Iron Iron No Iron Atorvastati n Calcium 40 MG Atorvastati n Calcium 40 MG No Atorvastat in Calcium 40 MG Immunizations Ordered Immunization Name Filled Immunization Name Date Status Comments Source Prevnar 20 (PCV20) Prevnar 20 (PCV20) Unknown Completed [facility] Prevnar 20 (PCV20) Prevnar 20 (PCV20) Unknown Completed [facility] Prevnar 20 (PCV20) Prevnar 20 (PCV20) Unknown Completed [facility] Prevnar 20 (PCV20) Prevnar 20 (PCV20) Unknown Completed [facility] Prevnar 20 (PCV20) Prevnar 20 (PCV20) Unknown Completed [facility] Prevnar 20 (PCV20) Prevnar 20 (PCV20) Unknown Completed [facility] Prevnar 20 (PCV20) Prevnar 20 (PCV20) Unknown Completed [facility] Vital Signs Vital Name Observation Time Observation Value Comments S ource Systolic blood pressure 2023-11-19 03:00:00 136 mm[Hg] [facility] Diastolic blood pressure 2023-11-19 03:00:00 75 mm[Hg] [facility] Heart rate 2023-11-19 03:00:00 71 /min [facility] Body temperature 2023-11-19 03:00:00 36.89 Siri [facility] Respiratory rate 2023-11-19 03:00:00 14 /min [facility] Oxygen saturation in Arterial blood by Pulse oximetry 2023-11-19 03:00:00 96 /min [facility] Body height 2023-11-18 21:31:[address] [facility] Body weight 2023-11-18 21:31:[address] [facility] BMI 2023-11-18 21:31:00 34.70 kg/m2 [facility] height 2023-09-22 08:40:00 67 [in_i] Commo n [facility] weight 2023-09-22 08:40:00 216 [lb_av] Comm on [facility] temperature 2023-09-22 08:40:00 97.9 [degF] Com mon [facility] bmi 2023-09-22 08:40:00 33.83 kg/m2 Comm on [facility] oximetry 2023-09-22 08:40:00 99 % Commo n [facility] respiratory rate 2023-09-22 08:40:00 18 /min [facility] blood pressure systolic 2023-09-22 08:40:00 134 mm[Hg] [facility] blood pressure diastolic 2023-09-22 08:40:00 72 mm[Hg] [facility] Systolic blood pressure 2023-08-15 20:28:00 166 mm[Hg] [facility] Diastolic blood pressure 2023-08-15 20:28:00 90 mm[Hg] [facility] Heart rate 2023-08-15 20:28:00 87 /min [facility] 2023-08-15 20:28:00 38.72 Siri [facility] Respiratory rate 2023-08-15 20:28:00 18 /min [facility] Body height 2023-08-15 20:28:00 165.1 cm [facility] Body weight 2023-08-15 20:28:[address] [facility] BMI 2023-08-15 20:28:00 35.78 kg/m2 [facility] Oxygen saturation in Arterial blood by Pulse oximetry 2023-08-15 20:28:00 97 /min [facility] height 2023-07-11 10:00:00 67 [in_i] Commo n [facility] weight 2023-07-11 10:00:00 223 [lb_av] Comm on [facility] temperature 2023-07-11 10:00:00 98.3 [degF] Com mon [facility] bmi 2023-07-11 10:00:00 34.92 kg/m2 Comm on [facility] oximetry 2023-07-11 10:00:00 98 % Commo n [facility] respiratory rate 2023-07-11 10:00:00 18 /min [facility] blood pressure systolic 2023-07-11 10:00:00 130 mm[Hg] [facility] blood pressure diastolic 2023-07-11 10:00:00 73 mm[Hg] [facility] Systolic blood pressure 2023-04-15 13:13:00 123 mm[Hg] [facility] Diastolic blood pressure 2023-04-15 13:13:00 63 mm[Hg] [facility] Heart rate 2023-04-15 13:13:00 80 /min [facility] Body temperature 2023-04-15 13:13:00 38 Siri [facility] Oxygen saturation in Arterial blood by Pulse oximetry 2023-04-15 13:13:00 92 /min [facility] Respiratory rate 2023-04-15 09:39:00 20 /min [facility] Body weight 2023-04-14 09:37:[address] [facility] BMI 2023-04-14 09:37:00 36.64 kg/m2 [facility] Body height 2023-04-13 08:00:[address] [facility] Body height 2022-08-16 22:49:00 165.1 cm Amparo ey Seybold - External Body weight 2022-08-16 22:49:00 102.513 kg Amparo ey Seybold - External BMI 2022-08-16 22:49:00 37.61 kg/m2 Amparo ey Seybold - External Oxygen saturation in Arterial blood by Pulse oximetry 2022-08-16 22:49:00 99 /min Meghan Dela Cruzo ld - External Systolic blood pressure 2022-08-16 22:49:00 115 mm[Hg] Meghan Dela Cruzo ld - External Diastolic blood pressure 2022-08-16 22:49:00 72 mm[Hg] Meghan Adamesybo ld - External Heart rate 2022-08-16 22:49:00 75 /min Sheila Plascencia - External Body temperature 2022-08-16 22:49:00 36.72 Siri Meghan Adamesybold - External Respiratory rate 2022-08-16 22:49:00 14 /min Meghan Adamesybold - External Body weight 2022-02-14 21:16:[address] [facility] BMI 2022-02-14 21:16:00 37.11 kg/m2 [facility] Systolic blood pressure 2022-02-10 18:00:00 119 mm[Hg] [facility] Diastolic blood pressure 2022-02-10 18:00:00 59 mm[Hg] [facility] Heart rate 2022-02-10 18:00:00 67 [facility] Respiratory rate 2022-02-10 18:00:00 18 /min [facility] Oxygen saturation in Arterial blood by Pulse oximetry 2022-02-10 18:00:00 96 /min [facility] Body temperature 2022-02-10 17:12:00 36.67 Siri [facility] Body height 2022-02-10 12:10:[address] [facility] Body weight 2022-02-10 12:10:[address] [facility] BMI 2022-02-10 12:10:00 37.16 kg/m2 [facility] Systolic blood pressure 2022-02-10 12:10:00 137 mm[Hg] [facility] Diastolic blood pressure 2022-02-10 12:10:00 76 mm[Hg] [facility] Heart rate 2022-02-10 12:10:00 63 /min Unive [facility] Body temperature 2022-02-10 12:10:00 36.56 Siri [facility] Respiratory rate 2022-02-10 12:10:00 16 /min [facility] Body height 2022-02-10 12:10:[address] [facility] Body weight 2022-02-10 12:10:[address] [facility] BMI 2022-02-10 12:10:00 37.16 kg/m2 [facility] Oxygen saturation in Arterial blood by Pulse oximetry 2022-02-10 12:10:00 99 /min [facility] Systolic blood pressure 2022-02-07 20:00:00 140 mm[Hg] [facility] Diastolic blood pressure 2022-02-07 20:00:00 86 mm[Hg] [facility] Heart rate 2022-02-07 20:00:00 61 /min Unive [facility] Respiratory rate 2022-02-07 20:00:00 22 /min [facility] Oxygen saturation in Arterial blood by Pulse oximetry 2022-02-07 20:00:00 93 /min [facility] Body temperature 2022-02-07 16:35:00 36.22 Siri [facility] Body height 2022-02-07 16:35:[address] [facility] Body weight 2022-02-07 16:35:[address] [facility] BMI 2022-02-07 16:35:00 36.61 kg/m2 [facility] Heart rate 2022-02-03 18:25:00 90 /min Unive [facility] Respiratory rate 2022-02-03 18:25:00 33 /min [facility] Oxygen saturation in Arterial blood by Pulse oximetry 2022-02-03 18:25:00 96 /min [facility] Systolic blood pressure 2022-02-03 18:10:00 143 mm[Hg] [facility] Diastolic blood pressure 2022-02-03 18:10:00 70 mm[Hg] [facility] Body temperature 2022-02-03 13:09:00 36.61 Siri [facility] Body height 2022-02-01 13:50:00 165.1 cm [facility] weight 2022-02-01 13:50:00 101.3 kg Univ [facility] BMI 2022-02-01 13:50:00 37.16 kg/m2 Univ [facility] Systolic blood pressure 2022-02-03 17:10:00 129 mm[Hg] [facility] Diastolic blood pressure 2022-02-03 17:10:00 67 mm[Hg] [facility] Heart rate 2022-02-03 17:10:00 98 /min [facility] 2022-02-03 17:10:00 18 /min [facility] Oxygen saturation in Arterial blood by Pulse oximetry 2022-02-03 17:10:00 95 /min [facility] Body temperature 2022-02-03 13:09:00 36.61 Siri [facility] Body height 2022-02-01 13:50:00 165.1 cm Univ [facility] Body weight 2022-02-01 13:50:00 101.3 kg Univ [facility] BMI 2022-02-01 13:50:00 37.16 kg/m2 Univ [facility] Systolic blood pressure 2022-01-31 13:32:00 133 mm[Hg] [facility] Diastolic blood pressure 2022-01-31 13:32:00 83 mm[Hg] [facility] Heart rate 2022-01-31 13:32:00 76 /min [facility] temperature 2022-01-31 13:32:00 36.5 Siri [facility] Respiratory rate 2022-01-31 13:32:00 18 /min [facility] Body height 2022-01-31 13:32:00 165.1 cm Univ [facility] Body weight 2022-01-31 13:32:00 101.334 kg Univ [facility] BMI 2022-01-31 13:32:00 37.18 kg/m2 Univ [facility] Oxygen saturation in Arterial blood by Pulse oximetry 2022-01-31 13:32:00 98 /min [facility] Systolic blood pressure 2021-06-01 19:18:00 118 mm[Hg] [facility] hill Diastolic blood pressure 2021-06-01 19:18:00 72 mm[Hg] Meghan Dela Cruzo liz Heart rate 2021-06-01 19:18:00 88 /min Kelse clayton Plascencia Body temperature 2021-06-01 19:18:00 37 Siri Meghanthom Plascencia Respiratory rate 2021-06-01 19:18:00 16 /min Meghan Plascencia Body height 2021-06-01 19:18:00 165.1 cm Amparo Plascencia Body weight 2021-06-01 19:18:00 100.699 kg Amparo Plascencia BMI 2021-06-01 19:18:00 36.94 kg/m2 Ampar[facility] Plascencia Procedures Procedure Date / Time Performed Performing Clinician Source CT ABDOMEN PELVIS W CONTRAST 2023-11-19 02:10:51 Tam Connors [facility] COMP. METABOLIC PANEL ([id number]) 2023-11-19 00:49:00 Tam Connors [facility] TROPONIN I 2023-11-18 23:23:[address] [facility] POCT TEST 2023-11-18 22:56:00 Joellen Connors [facility] LIPASE 2023-11-18 22:09:[address] [facility] CBC WITH DIFF 2023-11-18 22:09:00 [facility] URINALYSIS 2023-11-18 22:09:[address] [facility] ASSIGNMENT OF BENEFITS 2023-08-15 22:26:43 Docto r Unassigned, Chamizal [facility] RAPID STREP SCREEN FOR GROUP A 2023-08-15 21:08:00 Tasha Cobb [facility] RAPID INFLUENZA A/B 2023-08-15 21:08:00 Jacob Cobb [facility] COVID-19 (ID NOW RAPID TESTING) 2023-08-15 21:08:00 Tasha Cobb [facility] CONSENT/REFUSAL FOR DIAGNOSIS AND TREATMENT 2023-08-15 20:19:05 Doctor Unassigned, Chamizal [facility] POCT GLUCOSE (AUTOMATED) 2023-04-15 13:10:00 Maninder Macias [facility] CBC WITH DIFF 2023-04-15 09:46:00 Yifan Teague [facility] POCT GLUCOSE (AUTOMATED) 2023-04-15 01:13:00 Maninder Macias [facility] POCT GLUCOSE (AUTOMATED) 2023-04-14 21:08:00 Maninder Macias [facility] POCT GLUCOSE (AUTOMATED) 2023-04-14 16:37:00 Maninder Macias [facility] POCT GLUCOSE (AUTOMATED) 2023-04-14 13:00:00 Maninder Macias [facility] BASIC METABOLIC PANEL (NA, K, CL, CO2, GLUCOSE, BUN, CREATININE, CA) 2023-04-14 10:44:00 Mateo [facility] CBC WITH DIFF 2023-04-14 10:44:00 [facility] POCT GLUCOSE (AUTOMATED) 2023-04-14 01:24:00 Maninder Macias [facility] POCT GLUCOSE (AUTOMATED) 2023-04-13 21:30:00 Maninder Macias [facility] BLOOD CULTURE SCREEN 2023-04-13 17:20:00 Yifan Teague [facility] PROCALCITONIN 2023-04-13 17:07:00 Yifan Teague [facility] RESPIRATORY PANEL BY PCR 2023-04-13 17:06:00 Carrie Teague [facility] BLOOD CULTURE SCREEN 2023-04-13 17:06:00 Yifan Teague [facility] POCT GLUCOSE (AUTOMATED) 2023-04-13 16:22:00 Maninder Macias [facility] RAPID INFLUENZA A/B 2023-04-13 14:33:00 Yifan Teague [facility] XR CHEST 1 VW 2023-04-13 14:07:00 Yifan Teague [facility] POCT GLUCOSE (AUTOMATED) 2023-04-13 12:38:00 Maninder Macias [facility] BASIC METABOLIC PANEL (NA, K, CL, CO2, GLUCOSE, BUN, CREATININE, CA) 2023-04-13 09:53:00 Yifan Teague [facility] CBC WITH DIFF 2023-04-13 09:53:00 Yifan Teague [facility] POCT GLUCOSE (AUTOMATED) 2023-04-13 01:52:00 Maninder Macias [facility] CT ABDOMEN PELVIS W CONTRAST 2023-04-13 00:17:00 Yifan Teague [facility] POCT GLUCOSE (AUTOMATED) 2023-04-12 21:55:00 Maninder Macias [facility] POCT GLUCOSE (AUTOMATED) 2023-04-12 16:52:00 Maninder Macias [facility] POCT GLUCOSE (AUTOMATED) 2023-04-12 13:20:00 Maninder Macias [facility] BASIC METABOLIC PANEL (NA, K, CL, CO2, GLUCOSE, BUN, CREATININE, CA) 2023-04-12 09:39:00 Yifan Teague [facility] CBC WITH DIFF 2023-04-12 09:39:00 Yifan Teague [facility] POCT GLUCOSE (AUTOMATED) 2023-04-12 02:16:00 Maninder Macias [facility] TEST, SERUM 2023-04-11 22:01:00 Dakota Teague [facility] TOTAL IRON BINDING CAPACITY 2023-04-11 22:01:00 Yifan Teague [facility] POCT GLUCOSE (AUTOMATED) 2023-04-11 21:37:00 Maninder Macias [facility] POCT GLUCOSE (AUTOMATED) 2023-04-11 16:15:00 Maninder Macias [facility] POCT GLUCOSE (AUTOMATED) 2023-04-11 12:37:00 Maninder Macias [facility] IRON 2023-04-11 09:57:[address] [facility] BASIC METABOLIC PANEL (NA, K, CL, CO2, GLUCOSE, BUN, CREATININE, CA) 2023-04-11 09:57:00 Yifan Teague [facility] CBC WITH DIFF 2023-04-11 09:57:00 Yifan Teague [facility] RETICULOCYTES AUTOMATED 2023-04-11 09:57:00 Alejandro Teague [facility] POCT GLUCOSE (AUTOMATED) 2023-04-11 02:10:00 Maninder Macias [facility] POCT GLUCOSE (AUTOMATED) 2023-04-10 21:22:00 Maninder Macias [facility] COVID-19 (ID NOW RAPID TESTING) 2023-04-10 17:11:00 Yifan Teague [facility] LAB ONLY COVID INTERPRETATION 2023-04-10 17:11:00 Yifan Teague [facility] POCT GLUCOSE (AUTOMATED) 2023-04-10 16:57:00 Maninder Macias [facility] POCT GLUCOSE (AUTOMATED) 2023-04-10 12:27:00 Maninder Macias [facility] MAGNESIUM 2023-04-10 07:57:[address] [facility] COMP. METABOLIC PANEL (98982) 2023-04-10 07:57:00 Yifan Teague [facility] VANCOMYCIN TROUGH 2023-04-10 07:57:00 Bel Dennis [facility] CBC WITH DIFF 2023-04-10 07:57:00 Yifan Teague [facility] POCT GLUCOSE (AUTOMATED) 2023-04-10 01:10:00 Maninder Macias [facility] POCT GLUCOSE (AUTOMATED) 2023-04-09 22:04:00 Maninder Macias [facility] IRON 2023-04-09 20:49:[address] [facility] TOTAL IRON BINDING CAPACITY 2023-04-09 20:49:00 Yifan Teague [facility] RETICULOCYTES AUTOMATED 2023-04-09 20:49:00 Alejandro Teague [facility] POCT GLUCOSE (AUTOMATED) 2023-04-09 16:08:00 Maninder Macias [facility] POCT GLUCOSE (AUTOMATED) 2023-04-09 12:44:00 Maninder Macias [facility] MAGNESIUM 2023-04-09 08:58:00 Teodoro [facility] BASIC METABOLIC PANEL (NA, K, CL, CO2, GLUCOSE, BUN, CREATININE, CA) 2023-04-09 08:58:00 Teodoro [facility] CBC WITH DIFF 2023-04-09 08:58:00 Teodoro Tima [facility] POCT GLUCOSE (AUTOMATED) 2023-04-09 00:54:00 Maninder Macias [facility] POCT GLUCOSE (AUTOMATED) 2023-04-08 21:10:00 Maninder Macias [facility] POCT GLUCOSE (AUTOMATED) 2023-04-08 16:15:00 Maninder Macias [facility] CBC WITH DIFF 2023-04-08 16:04:00 Tima Valerio [facility] MAGNESIUM 2023-04-08 16:03:00 Teodoro [facility] BASIC METABOLIC PANEL (NA, K, CL, CO2, GLUCOSE, BUN, CREATININE, CA) 2023-04-08 16:03:00 Tima Valerio [facility] LIPASE 2023-04-08 13:11:00 Teodoro [facility] POCT GLUCOSE (AUTOMATED) 2023-04-08 12:44:00 Maninder Macias [facility] POCT GLUCOSE (AUTOMATED) 2023-04-08 01:05:00 Maninder Macias [facility] POCT GLUCOSE (AUTOMATED) 2023-04-07 22:27:00 Maninder Macias [facility] TRIGLYCERIDES 2023-04-07 16:41:00 [facility] 2023-04-07 16:30:00 Maninder Macias [facility] US PELVIS COMPLETE WITH TRANSVAGINAL 2023-04-07 16:06:05 Tima Valerio [facility] POCT GLUCOSE (AUTOMATED) 2023-04-07 14:26:00 Maninder Macias [facility] POCT GLUCOSE (AUTOMATED) 2023-04-07 13:20:00 Maninder Macias [facility] POCT GLUCOSE (AUTOMATED) 2023-04-07 11:29:00 Maninder Macias [facility] TRIGLYCERIDES 2023-04-07 11:21:00 [facility]SE (AUTOMATED) 2023-04-07 10:32:00 Maninder Macias [facility] POCT GLUCOSE (AUTOMATED) 2023-04-07 09:32:00 Maninder Macias [facility] POCT GLUCOSE (AUTOMATED) 2023-04-07 08:27:00 Maninder Macias [facility] POCT GLUCOSE (AUTOMATED) 2023-04-07 07:26:00 Maninder Macias [facility] TRIGLYCERIDES 2023-04-07 06:59:00 [facility] 2023-04-07 06:59:00 Lauren [facility] BASIC METABOLIC PANEL (NA, K, CL, CO2, GLUCOSE, BUN, CREATININE, CA) 2023-04-07 06:59:00 Lauren Macias [facility] CBC WITH DIFF 2023-04-07 06:59:00 [facility] GLUCOSE (AUTOMATED) 2023-04-07 06:31:00 Maninder Macias [facility] POCT GLUCOSE (AUTOMATED) 2023-04-07 05:27:00 Maninder Macias [facility] POCT GLUCOSE (AUTOMATED) 2023-04-07 04:26:00 Maninder Macias [facility] POCT GLUCOSE (AUTOMATED) 2023-04-07 03:26:00 Maninder Macias [facility] POCT GLUCOSE (AUTOMATED) 2023-04-07 02:33:00 Maninder Macias [facility] CT ABDOMEN PELVIS W CONTRAST 2023-04-07 02:21:28 Tima Valerio [facility] POCT GLUCOSE (AUTOMATED) 2023-04-07 01:31:00 Maninder Macias [facility] BLOOD CULTURE SCREEN 2023-04-07 00:35:00 Dana Valerio i [facility] PROCALCITONIN 2023-04-07 00:34:00 [facility] POCT GLUCOSE (AUTOMATED) 2023-04-07 00:31:00 Maninder Macias [facility] URINALYSIS 2023-04-06 23:53:00 [facility] URINE CULTURE 2023-04-06 23:53:00 Tima [facility] TRIGLYCERIDES 2023-04-06 23:24:00 [facility] BASIC METABOLIC PANEL (NA, K, CL, CO2, GLUCOSE, BUN, CREATININE, CA) 2023-04-06 23:24:00 Tima Valerio [facility] POCT GLUCOSE (AUTOMATED) 2023-04-06 23:23:00 Maninder Macias [facility] POCT GLUCOSE (AUTOMATED) 2023-04-06 22:38:00 Maninder Macias [facility] POCT GLUCOSE (AUTOMATED) 2023-04-06 20:21:00 Maninder Macias [facility] POCT GLUCOSE (AUTOMATED) 2023-04-06 19:27:00 Maninder Macias [facility] POCT GLUCOSE (AUTOMATED) 2023-04-06 18:38:00 Maninder Macias [facility] PHOSPHORUS 2023-04-06 17:55:00 Tima Valerio Univer sity [facility] TRIGLYCERIDES 2023-04-06 17:55:00 Lauren [facility] C-REACTIVE PROTEIN 2023-04-06 17:55:00 Lauren Macias [facility] BASIC METABOLIC PANEL (NA, K, CL, CO2, GLUCOSE, BUN, CREATININE, CA) 2023-04-06 17:55:00 Tima Valerio [facility] POCT GLUCOSE (AUTOMATED) 2023-04-06 17:53:00 Maninder Macias [facility] POCT GLUCOSE (AUTOMATED) 2023-04-06 16:41:00 Maninder Macias [facility] BASIC METABOLIC PANEL (NA, K, CL, CO2, GLUCOSE, BUN, CREATININE, CA) 2023-04-06 16:13:00 Lauren Macias [facility] POCT GLUCOSE (AUTOMATED) 2023-04-06 15:27:00 Maninder Macias [facility] POCT GLUCOSE (AUTOMATED) 2023-04-06 14:12:00 Maninder Macias [facility] POCT GLUCOSE (AUTOMATED) 2023-04-06 13:11:00 Maninder Macias [facility] POCT GLUCOSE (AUTOMATED) 2023-04-06 12:02:00 Maninder Macias [facility] POCT GLUCOSE (AUTOMATED) 2023-04-06 11:16:00 Maninder Macias [facility] POCT GLUCOSE (AUTOMATED) 2023-04-06 10:16:00 Maninder Macias [facility] GLYCOSYLATED HEMOGLOBIN (A1C) 2023-04-06 09:35:00 Lauren Macias [facility] POCT GLUCOSE (AUTOMATED) 2023-04-06 09:26:00 Maninder Macias [facility] CBC WITH DIFF 2023-04-06 09:01:00 Lauren [facility] LACTIC ACID WHOLE BLOOD 2023-04-06 08:57:00 Aramis Macias mmad [facility] LOW-DENSITY LIPOPROTEIN, DIRECT 2023-04-06 08:48:00 Lauren Macias [facility] PHOSPHORUS 2023-04-06 08:48:00 [facility] LIPASE 2023-04-06 08:48:00 Lauren [facility]ias [facility] HEPATIC FUNCTION PANEL (30339) (ALB,T.PRO,BILI T,BU/BC,ALT,AST,ALK PHOS) 2023-04-06 08:48:00 Lauren Macias [facility] BASIC METABOLIC PANEL (NA, K, CL, CO2, GLUCOSE, BUN, CREATININE, CA) 2023-04-06 08:48:00 Lauren Macias [facility] LIPID PANEL ([id number])(TOTAL CHOLESTEROL, TRIGLYCERIDES, HDL) 2023-04-06 08:48:00 Lauren Macias [facility] EXTERNAL PROVIDER RECORDS 2022-03-29 05:01:00 Do ctor Unassigned, Chamizal [facility] TIME OR (NON-REPORTABLE) 2022-02-10 17:01:00 Shlomo [facility] TIME OR (NON-REPORTABLE) 2022-02-10 17:01:00 Shlomo [facility] URINE CULTURE 2022-02-10 15:48:00 Rosendo Keenan [facility] URETEROSCOPIC STONE MANIPULATION 2022-02-10 15:07:00 Shlomo [facility] POCT GLUCOSE (AUTOMATED) 2022-02-10 12:30:00 Shlomo [facility] POCT GLUCOSE (AUTOMATED) 2022-02-10 12:30:00 Shlomo [facility] POCT TEST 2022-02-10 12:24:00 Pavel Liz [facility] POCT TEST 2022-02-10 12:24:00 Pavel Liz [facility] POCT GLUCOSE(AGE >30DAYS) 2022-02-10 12:12:00 Curt Liz [facility] POCT GLUCOSE(AGE >30DAYS) 2022-02-10 12:12:00 Curt Liz [facility] DAY SURGERY - ADC 2022-02-10 05:01:00 Doctor Dayna ssigned, Chamizal [facility] CONSENT/REFUSAL FOR DIAGNOSIS AND TREATMENT 2022-02-08 15:42:27 Doctor Unassigned, Chamizal [facility] ASSIGNMENT OF BENEFITS 2022-02-08 15:42:15 Docto r Unassigned, Chamizal [facility] CT CHEST PULMONARY ANGIOGRAM 2022-02-07 19:07:47 Charito Sher [facility] POCT TEST 2022-02-07 17:38:00 Radha Sher [facility] TROPONIN I 2022-02-07 17:36:00 [facility] COMP. METABOLIC PANEL (17405) 2022-02-07 17:36:00 Charito Sher [facility] CBC WITH DIFF 2022-02-07 17:36:00 [facility] D-DIMER 2022-02-07 17:36:[address] [facility] URINALYSIS 2022-02-07 17:36:00 [facility] N-TERMINAL PRO-BNP 2022-02-07 17:36:00 Keke Sher [facility] CONSENT/REFUSAL FOR DIAGNOSIS AND TREATMENT 2022-02-07 16:33:09 Doctor Unassigned, Chamizal [facility] FL TIME OR (NON-REPORTABLE) 2022-02-03 16:45:00 Shlomo [facility] [place] TIME OR (NON-REPORTABLE) 2022-02-03 16:45:00 Alzweri, Rosendo [facility] CYSTOSCOPY WITH INSERTION STENT URETER 2022-02-03 15:41:00 Shlomo [facility] STENT PLACEMENT 2022-02-03 15:41:00 Rosendo Keenan [facility] POCT GLUCOSE (AUTOMATED) 2022-02-03 13:20:00 Shlomo [facility] POCT GLUCOSE (AUTOMATED) 2022-02-03 13:20:00 Shlomo [facility] ASSIGNMENT OF BENEFITS 2022-02-03 13:01:29 Docto r Unassigned, Chamizal [facility] POCT TEST 2022-02-03 13:00:00 Pavel Liz [facility] POCT TEST 2022-02-03 13:00:00 Pavel Liz [facility] DISCLOSURE AND CONSENT, MEDICAL AND SURGICAL PROCEDURES 2022-01-31 05:01:00 Doctor Unassigned, Chamizal [facility] DISCLOSURE AND CONSENT, MEDICAL AND SURGICAL PROCEDURES 2022-01-31 05:01:00 Doctor Unassigned, Chamizal [facility] AUTHORIZATION TO RELEASE PHI TO [facility] 2022-01-28 05:01:00 Doctor Unassigned, Chamizal [facility] Encounters Start Date/Time End Date/Time Encounter Type Admission Type Attending [facility] Care Facility Care Department Encounter ID Source 2023-09-20 11:10:01 Outpatient EliseSharon lee [facility] [id number] [facility] 2023-07-11 09:44:01 Outpatient Sharon Yin [facility] [id number] [facility] 2021-05-08 14:29:02 Emergency [facility] [id number] [facility] 2019-09-18 16:06:36 Outpatient TALA APRILANYAADRIANNA [facility] [id number] [facility] 2024-01-24 00:00:00 2024-01-24 00:00:00 (TEL) [facility] [id number] [facility] 2024-01-08 00:00:00 2024-01-08 00:00:00 (TEL) STLMLC ST[facility]C [id number] [facility] 2024-01-02 00:00:00 2024-01-02 00:00:00 (TEL) STLMLC STLMLC [id number] [facility] 2023-11-18 16:33:00 2023-11-18 22:25:00 Emergency X WAYLON TAM [facility] ERT [id number] [facility] 2023-11-18 16:33:00 2023-11-18 22:25:00 Emergency Waylon Tam [facility] 1.2.840.114 350.1.13.10 4.2.7.2.[id number] [facility] 2023-09-28 00:00:00 2023-09-28 00:00:00 (TEL) STLMLC STLMLC [id number] [facility] 2023-09-22 00:00:00 2023-09-22 00:00:00 OFFICE VISIT ESTAB PT LEVEL 4 STLMLC STLMLC [id number] [facility] 2023-09-12 00:00:00 2023-09-12 00:00:00 (TEL) STLMLC STLMLC [id number] [facility] 2023-08-15 14:30:00 2023-08-15 17:08:00 Emergency X ARNIE TASHA [facility] ERT [id number] [facility] 2023-08-15 14:30:00 2023-08-15 17:08:00 Emergency Tasha Cobb [facility] 1.2.840.114 350.1.13.10 4.2.7.2.[id number] [facility] 2023-07-12 00:00:00 2023-07-12 00:00:00 (TEL) STLMLC ST[facility]MLC [id number] [facility] 2023-07-12 00:00:00 2023-07-12 00:00:00 OFFICE VISIT ESTAB PT LEVEL 4 [facility] [id number] [facility] 2023-07-11 00:00:00 2023-07-11 00:00:00 PREV VISIT NEW AGE 18-39 [facility] [id number] [facility] 2023-05-26 13:30:00 2023-05-26 13:30:00 Outpatient MANUEL RAYO [id number] Meghan Plascencia 2023-04-18 14:07:00 2023-04-18 18:28:00 Emergency EM Rishabh Hillman [facility] LOY [id number] [facility] 2023-04-17 00:00:00 2023-04-17 00:00:00 Transition of Care Edelmira Roberson 1.840.114 350.1.13.10 4.2.7.2.[id number] [facility] 2023-04-17 00:00:00 2023-04-17 00:00:00 Patient Secure Msg Doctor Unassigned, Chamizal [facility] 1.2840.114 350.1.13.10 4.2.7.2.[id number] [facility] 2023-04-06 03:07:00 2023-04-15 14:11:00 Inpatient U LAUREN MACIAS [facility] SERENA [id number] [facility] 2023-04-06 03:07:00 2023-04-15 14:11:00 Hospital Encounter Laurne Macias [facility] 1.2840.114 350.1.13.10 4.2.7.2.[id number] [facility] 2022-10-19 08:45:00 2022-10-19 08:45:00 Outpatient CHAITANYA BLOOM MEGHAN [id number] Meghan [facility] 2022-10-19 00:00:00 2022-10-19 00:00:00 Outpatient CHAITANYA BLOOM MEGHAN [id number] Meghan [facility] 2022-08-22 00:00:00 2022-08-22 00:00:00 Outpatient OLLIE TUBBS MEHGAN SIERRA [id number] [facility] 2022-08-16 16:30:00 2022-08-16 16:30:00 Outpatient OLLIE TUBBS MEGHAN SIERRA [id number] [facility] 2022-08-08 00:00:00 2022-08-08 00:00:00 Outpatient OLLIE TUBBS MEGHAN SIERRA [id number] [facility] 2022-07-05 00:00:00 2022-07-05 00:00:00 Outpatient OLLIE TUBBS MEGHAN SIERRA [id number] [facility] 2022-06-15 00:00:00 2022-06-15 00:00:00 Outpatient OLLIE TUBBS MEGHAN SIERRA [id number] [facility] 2022-06-13 16:30:00 2022-06-13 16:30:00 Outpatient OLLIE TUBBS MEGHAN SIERRA [id number] [facility] 2022-06-13 15:15:00 2022-06-13 15:15:00 Outpatient OLLIE TUBBS MEGHAN SIERRA [id number] [facility] 2022-03-29 00:00:00 2022-03-29 00:00:00 Orders Only Doctor Unassigned, Chamizal [facility] 1.2.840.114 350.1.13.10 4.2.7.2.[id number] [facility] 2022-03-28 14:15:00 2022-03-28 14:15:00 Outpatient LUCY SMITH [facility] [id number] [facility] 2022-02-15 00:00:00 2022-02-15 00:00:00 Telephone Ayala Champion [facility] 1.2.840.114 350.1.13.10 4.2.7.2.[id number] [facility] 2022-02-14 13:00:00 2022-02-14 13:29:22 Outpatient R SHLOMO [facility] [id number] [facility] 2022-02-14 13:00:00 2022-02-14 13:29:22 Nurse Visit Nurse, [facility] Surgery Shlomo [facility] BUILDING 1.2.840.114 350.1.13.10 4.2.7.2.[id number] [facility] 2022-02-11 00:00:00 2022-02-11 00:00:00 Telephone Shlomo [facility] BUILDING 1.2.840.114 350.1.13.10 4.2.7.2.[id number] [facility] 2022-02-11 00:00:00 2022-02-11 00:00:00 Refill Shlomo [facility] BUILDING 1.2.840.114 350.1.13.10 4.2.7.2.[id number] [facility] 2022-02-10 07:05:00 2022-02-10 13:45:00 Outpatient R SHLOMO [facility] [id number] [facility] 2022-02-10 07:05:00 2022-02-10 13:45:00 Hospital Encounter Shlomo [facility] 1.2.840.114 350.1.13.10 4.2.7.2.[id number] [facility] 2022-02-10 09:01:00 2022-02-10 10:51:00 Surgery [facility] 1.2840.114 350.1.13.10 4.2.7.2.[id number] [facility] 2022-02-10 00:00:00 2022-02-10 00:00:00 Orders Only Doctor Unassigned, Chamizal [facility] 1.20.114 350.1.13.10 4.2.7.2.[id number] [facility] 2022-02-09 08:30:00 2022-02-09 08:30:00 Outpatient R [facility] [id number] [facility] 2022-02-08 11:30:00 2022-02-08 11:45:00 Laboratory Only Only, Adc Test [facility] 1.2840.114 350.1.13.10 4.2.7.2.[id number] [facility] 2022-02-08 11:30:00 2022-02-08 11:30:00 Outpatient R [facility] [id number] [facility] 2022-02-08 00:00:00 2022-02-08 00:00:00 Orders Only Doctor Unassigned, Chamizal [facility] 1.20.114 350.1.13.10 4.2.7.2.[id number] [facility] 2022-02-08 00:00:00 2022-02-08 00:00:00 Telephone [facility]ESS[facility] N[facility]ILD[facility] 1.20.114 350.1.13.10 4.2.7.2.[id number] [facility] 2022-02-07 11:37:00 2022-02-07 16:32:00 Emergency X CHARITO SHER [facility] ERT [id number] [facility] 2022-02-07 11:37:00 2022-02-07 16:32:00 Emergency Charito Sher [facility] 1.2.840.114 350.1.13.10 4.2.7.2.[id number] [facility] 2022-02-07 00:00:00 2022-02-07 00:00:00 Telephone Shlomo [facility] 1.2.840.114 350.1.13.10 4.2.7.2.[id number] [facility] 2022-02-07 00:00:00 2022-02-07 00:00:00 [facility] 1.2.840.114 350.1.13.10 4.2.7.2.[id number] [facility] 2022-02-04 00:00:00 2022-02-04 00:00:00 Telephone [facility] PROFESSIO NAL BUILDING 1.2.840.114 350.1.13.10 4.2.7.2.[id number] [facility] 2022-02-03 08:04:00 2022-02-03 14:45:00 [facility] [id number] [facility] 2022-02-03 08:04:00 2022-02-03 14:45:00 Hospital Encounter [facility] SURGICAL [place] 1.2.840.114 350.1.13.10 4.2.7.2.[id number] [facility] 2022-02-03 10:51:00 2022-02-03 12:14:00 Surgery [facility] SURGICAL [place] 1.2.840.114 350.1.13.10 4.2.7.2.[id number] [facility] 2022-02-03 00:00:00 2022-02-03 00:00:00 Orders Only Doctor Unassigned, Chamizal [facility] 1.2.840.114 350.1.13.10 4.2.7.2.[id number] [facility] 2022-02-03 00:00:00 2022-02-03 00:00:00 Telephone Shlomo [facility] [facility] 1.2.840.114 350.1.13.10 4.2.7.2.[id number] [facility] 2022-02-01 00:00:00 2022-02-01 00:00:00 [facility] 1.2.840.114 350.1.13.10 4.2.7.2.[id number] [facility] 2022-01-31 14:45:00 2022-01-31 15:00:00 Laboratory Only Only, [facility] 1.2.840.114 350.1.13.10 4.2.7.2.[id number] [facility] 2022-01-31 08:30:00 2022-01-31 09:12:30 Outpatient R [facility]ZIA [facility] [id number] [facility] 2022-01-31 08:30:00 2022-01-31 09:12:30 [facility] 1.2.840.114 350.1.13.10 4.2.7.2.[id number] [facility] 2022-01-31 08:30:00 2022-01-31 09:12:30 Outpatient R LUCY PIERCE [facility] [id number] [facility] 2022-01-31 08:15:00 2022-01-31 08:15:00 Outpatient R ROSENDO KEENAN [facility] [id number] [facility] 2022-01-28 15:00:00 2022-01-28 15:50:19 [facility] [id number] [facility] 2022-01-28 15:00:00 2022-01-28 15:50:19 [facility] 1..840.114 350.1.13.10 4.2.7.2.[id number] [facility] 2022-01-28 15:00:00 2022-01-28 15:50:19 [facility] [id number] [facility] 2022-01-28 00:00:00 2022-01-28 00:00:00 Case Management Ashish Ridley [facility] 1.840.114 350.1.13.10 4.2.7.2.[id number] [facility] 2022-01-28 00:00:00 2022-01-28 00:00:00 Orders Only Doctor Unassigned, [place] [facility] 1.840.114 350.1.13.10 4.2.7.2.[id number] [facility] 2022-01-27 16:38:00 2022-01-27 19:01:00 Emergency X UNKNOWN, ATTENDING [facility] ERT [id number] [facility] 2022-01-27 16:38:00 2022-01-27 19:01:00 Emergency Yelena Cortes Unknown, [facility] 1.840.114 350.1.13.10 4.2.7.2.[id number] [facility] 2022-01-25 09:30:00 2022-01-25 09:30:00 Outpatient VALENCIA FREEMAN MEGHAN SIERRA [id number] Meghan Plascencia 2022-01-24 00:00:00 2022-01-24 00:00:00 Outpatient VALENCIA FREEMAN MEGHAN SIERRA [id number] Meghan Adamesvelasquez 2022-01-14 16:30:00 2022-01-14 16:30:00 Telemedici ne VALENCIA FREEMAN 1.2.840.114 350.1.13.13 1.2.7.2.686 [id number] [facility]22-01-14 09:35:00 2022-01-14 09:35:00 Outpatient JACOBY DIANE [id number] Meghan [facility] 2022-01-14 00:00:00 2022-01-14 00:00:00 Outpatient OLLIE TUBBS [id number] [facility] 2021-12-09 09:40:00 2021-12-09 09:40:00 Outpatient LAB90 MEGHAN SIERRA [id number] [facility] 2021-12-08 13:30:00 2021-12-08 13:53:34 Telemedici ne Ollie Tubbs Sherif Herrmann 1.2.840.114 350.1.13.13 1.2.7.2.686 [id number] Meghan velasquez 2021-11-30 11:00:00 2021-11-30 11:00:00 Outpatient OLLIE TUBBS [id number] Meghan [facility] 2021-11-26 09:00:00 2021-11-26 09:00:00 Outpatient OLLIE TUBBS [id number] Meghan [facility] 2021-11-25 00:00:00 2021-11-25 00:00:00 [facility] [id number] [facility] 2021-11-05 15:00:00 2021-11-05 15:00:00 Outpatient Manjit [facility] [id number] [facility] 2021-08-10 00:00:00 2021-08-10 00:00:00 [facility]UB[facility] [id number] [facility] 2021-08-06 10:00:00 2021-08-06 10:00:00 Telemedici venkat VALENCIA FREEMAN 1.2.840.114 350.1.13.13 1.2.7.2.686 [id number] [facility] 2021-08-06 00:00:00 2021-08-06 00:00:00 Outpatient OLLIE TUBBS [id number] [facility] 2021-08-05 18:30:00 2021-08-05 18:48:36 [facility] [id number] [facility] 2021-08-05 18:30:00 2021-08-05 18:45:00 Laboratory Only Only, [facility] 1.2.840.114 350.1.13.10 4.2.7.2.[id number] [facility] 2021-06-24 00:00:00 2021-06-24 00:00:00 Outpatient OLLIE TUBBS [id number] Meghan [facility] 2021-06-23 00:00:00 2021-06-23 00:00:00 Outpatient OLLIE TUBBS [id number] Meghan [facility] 2021-06-08 00:00:00 2021-06-08 00:00:00 Outpatient OLLIE TUBBS [id number] [facility] 2021-06-07 00:00:00 2021-06-07 00:00:00 Outpatient OLLIE TUBBS [id number] Meghan Plascencia 2021-06-01 13:30:00 2021-06-01 14:00:00 Office Visit ZarephathOllie 1.2.840.114 350.1.13.13 1.2.7.2.686 [id number] Meghan Plascencia 2020-07-10 17:35:00 2020-07-10 20:08:00 Emergency Fina Kizzy Ayaka [facility] 1.2.840.114 350.1.13.10 4.2.7.2.[id number] [facility] 2020-07-10 00:00:00 2020-07-10 00:00:00 Orders Only Doctor Unassigned, [place] [facility] 1.2840.114 350.1.13.10 4.2.7.2.[id number] [facility] 2020-04-10 13:33:36 2020-04-10 13:53:36 Laboratory Only Lab, [facility] 1.2840.114 350.1.13.10 4.2.7.2.686 [id number] 2020-04-10 13:33:36 2020-04-10 13:53:36 Laboratory Only Lab, [facility] Yolanda Johns [facility] 1.2840.114 350.1.13.10 4.2.7.2.[id number] [facility] 2020-04-10 13:20:00 2020-04-10 13:20:00 Outpatient R YOLANDA JOHNS [facility] [id number] [facility] 2020-04-10 00:00:00 2020-04-10 00:00:00 Letter (Out) Doctor Unassigned, [place] [facility] 1.2840.114 350.1.13.10 4.2.7.2.686 [id number] 2020-04-10 00:00:00 2020-04-10 00:00:00 Letter (Out) Pcp, Patient Does Not Have A [facility] 1.2.840.114 350.1.13.10 4.2.7.2.686 [id number] 2020-04-10 00:00:00 2020-04-10 00:00:00 Letter (Out) Doctor Unassigned, [place] [facility] 1.2.840.114 350.1.13.10 4.2.7.2.[id number] [facility] 2020-04-10 00:00:00 2020-04-10 00:00:00 Letter (Out) Pcp, Patient Does Not Have A [facility] 1.2.840.114 350.1.13.10 4.2.7.2.[id number] [facility] 2019-12-13 06:10:00 2019-12-13 09:37:00 Outpatient JOAQUIN EDGAR [id number] 2019-01-23 16:41:00 2019-01-23 16:41:00 Outpatient [id number] Results Test Description Test Time Test Comments Results Result Comments Source CT ABDOMEN PELVIS W CONTRAST 02:44:06 CT ABDOMEN PELVIS W CONTRAST HISTORY: ?Abdominal abscess/infection suspected Evaluate for acute pancreatitis COMPARISON: April 12, 2023 TECHNIQUE: CT abdomen and pelvis with intravenous contrast. All CT scans at this facility use dose modulation, iterativereconstruction , and/or weight based dosing when appropriate to reduceradiation dose to as low as reasonably achievable. FINDINGS: The visualized lung bases are clear. The liver contour is smooth. There is fatty infiltration of the liver.There is no discrete liver mass or intrahepatic biliary dilatation. Thereis inflammation of the tail the pancreas compatible with acutepancreatitis. The spleen and adrenal glands are unremarkable. There arenonobstructing stones in the left kidney measuring up to 6 mm. There is asmall cyst in the upper pole of the right kidney. The bladder is empty. The gallbladder has been removed. Gastric bypass has been performed. Thegastrointestinal tract is unobstructed. There is no intraperitoneal freeair or free fluid. The appendix is unremarkable. There is no abdominal aortic aneurysm. There are no destructive bonelesions. The uterus is present. ?There is a 2.2 cm cyst in the left ovary. On the sagittal reconstructed images vertebral body height and alignmentare maintained in the lumbar spine. Lordotic curvature is maintained.Intervertebr al disc spaces are maintained. [facility] 22:59:45* Test Item Value Reference Range Interpretation Comme nts LIPASE (test code = 1419217235) 682 U/L 0-220 H Lab Interpretation (test cod e = 77226-3) [facility] [id number] 22:56:00* Test Item Value Reference Range Interpretation Comme nts POCT PREG (test code = 1605) Negative On board controls acceptable with C Line (test code = 3574) Yes POCT PREG LOT # (test code = 3575) [id number] POCT PREG TEST DATE ( test code = 3576) [id number] Lab Interpretation (test cod e = 14999-5) Normal [facility] with [id number] 22:47:25* Test Item Value Reference Range Interpretation Comme nts WBC (test code = 6690-2) 10.23 4.30-11.10 RBC (test code = 789-8) 4.86 3.93-5.25 HGB (test code = 718-7) 13.6 g/dL 11.6-15.0 HCT (test code = 4544-3) 37.7 % 35.7-45.2 MCV (test code = 787-2) 77.6 fL 80.6-95.5 L MCH (test code = 785-6) 28.0 pg 25.9-32.8 MCHC (test code = 786-4) 36.1 g/dL 31.6-35.1 H RDW-SD (test code = 31352-7) 46.4 fL 39.0-49.9 RDW-CV (test code = 788-0) 16.5 % 12.0-15.5 H PLT (test code = 777-3) 265 166-358 MPV (test code = 75550-4) 11.3 fL 9.5-12.9 NRBC/100 WBC (test code = 2652033647) 0.0 0.0-10.0 NRBC x10^3 (test code = 1917969562) See_Comment [Automated messa ge] The system which generated this result transmitted reference range: 10*3/?L. The reference range was not used to interpret this result as normal/abnormal. GRAN MAT (NEUT) % (test code = 770-8) 61.1 % IMM GRAN % (test code = 4755482180) 0.50 % LYMPH % (test code = 736-9) 30.4 % MONO % (test code = 5905-5) 6.1 % EOS % (test code = 713-8) 1.3 % BASO % (test code = 706-2) 0.6 % GRAN MAT x10^3(ANC) (test code = 8888767993) 6.26 10*3/uL 1.88-7.09 IMM GRAN x10^3 (test code = 9189220887) 0.05 10*3/uL 0.00-0.06 LYMPH x10^3 (test code = 731-0) 3.11 10*3/uL 1.32-3.29 MONO x10^3 (test code = 742-7) 0.62 10*3/uL 0.33-0.92 EOS x10^3 (test code = 711-2) 0.13 10*3/uL 0.03-0.39 BASO x10^3 (test code = 704-7) 0.06 10*3/uL 0.01-0.07 Lab Interpretation (test code = 73731-2) Abnormal [facility] SouthHEMOGLOBIN [id number] 00:00:00* Test Item Value Reference Range Interpretation Comme nts A1C (test code = 4548-4) 10.5 HEMOGLOBIN [id number] 00:00:00* Test Item Value Reference Range Interpretation Comme nts A1C (test code = 4548-4) 8.8 COVID 19 INHOUSE [id number] 17:32:00* Test Item Value Reference Range Interpretation Comme nts COVID 19 INHOUSE AG (test code = [id number]) Negative Negative A negative resul t is presumptive and should be confirmedwith an FDA authorized molecular assay, if necessary forpatient management.A positive result does not rule out co-infections withother pathogens.This test detects both viable (live) and non-viable,SARS-CoV, and SARS-CoV-2. Test performance depends on theamount of virus (antigen) in the sample.This test has not been FDA cleared or approved; the test hasbeen authorized by FDA under an Emergency Use Authorization(EUA) for use by laboratories certified under the CLIA thatmeet the requirements to perform moderate, high or waivedcomplexity tests. - CT ABD PELVIS W/[id number] 16:36:00 [facility] 1985 Sex: FName: FERNANDO HAN [facility] : 1985 Age/S: 37 / F [address] [place] [address] Unit #: [id number] Loc: [place] [address] Phys: Elena Romo MD Acct: [id number] Dis Date: Status: REG ER PHONE #: [phone] Exam Date: 04/18/2023 1606 FAX #: [phone] Reason: fever EXAMS: CPT CODE: [id number] CT ABD PELVIS W/CONT 68569 Dictation location: C4. CT ABDOMEN AND PELVIS WITH IV CONTRAST HISTORY: Fever COMPARISON: None. TECHNIQUE: Axial CT images of the abdomen and pelvis were obtained with coronal and/or sagittal reformatted views. Automated exposure control, iterative reconstruction technique, and/or adjustment of mA and/or kV according to patient's size was utilized for radiation dose reduction. IV CONTRAST: 100 ml Isovue-300. PO CONTRAST: None. FINDINGS: Mild atelectasis present in both lung bases. The heart size is normal. No pericardial effusion. The gallbladder has been removed. Diffuse low attenuation throughout the liver suggestive of steatosis. There is a ill-defined vague area of hypodensity noted along the medial left hepatic lobe towards the ilda hepatis. Portal vein is patent. Slightly irregular wedge-shaped hypodensity seen within the spleen measuring approximately 3 cm in length. The splenic artery and vein are patent. Mild inflammatory changes seen towards the pancreas. The adrenal glands are unremarkable. Both kidneys are similar in size, shape and enhancement without evidence of hydronephrosis. There are at least 3 nonobstructing left renal stones measuring up to 4 mm. Urinary bladder is contracted. The uterus and ovaries are grossly unremarkable. No free air, free fluid or evidence of a bowel obstruction. Normal appendix. Gastric bypass. The stomach is collapsed. The aorta is normal in caliber. No abdominal or pelvic ad enopathy. Lumbar spondylosis with large posterior bulging annulus and some PAGE 1 Signed Report (CONTINUED) Name: FERNANDO HAN [facility] : 1985 Age/S: 37 / F [address] [place] [address] Unit #: [id number] Loc: [place] [address] Phys: Elena Romo MD Acct: [id number] Dis Date: Status: REG ER PHONE #: [phone] Exam Date: 04/18/2023 1606 FAX #: [phone] Reason:fever EXAMS: CPT CODE: [id number] CT ABD PELVIS W/CONT 33282 (Continued) osteophyte formation at L3-L4 causing moderate spinal canal stenosis. IMPRESSION: Mild inflammatory changes along the pancreas relate to acute pancreatitis. No fluid collection. Wedge-shaped hypodensity in the spleen concerning for a small infarct. at 1636 Reported and signed by: Jf Starr M.D. CC: Simeon Cordova MD; Elena Oconnell MD Technologist:Gordy Walters, RT(R)(CT) CTDI: DLP: Trnscb Date/Time: 04/18/2023 (1635) [email or web address] Orig Print D/T: S: 04/18/2023 (7796) PAGE 2 Signed ReportCBC W/AUTO [id number] 15:40:00* Test Item Value Reference Range Interpretation Comme nts WHITE BLOOD CELL (test code = WBC) 7.8 x10 3/uL 4.5-11.0 N RED BLOOD CELL (test code = RBC) 3.86 x10 6/uL 3.54-5.02 N HEMOGLOBIN (test code = HGB) 10.5 g/dL 11.0-15.0 L HEMATOCRIT (test code = HCT) 33.5 % 33.0-45.0 N MEAN CELL VOLUME (test code = MCV) 86.8 fL 81.0-99.0 N MEAN CELL HGB (test code = MCH) 27.2 pg 27.0-33.0 N MEAN CELL HGB CONCETRATION (test code = MCHC) 31.3 g/dL 33.0-37.0 L RED CELL DISTRIBUTION WIDTH CV (test code = RDW) 14.3 % 11.5-14.5 N RED CELL DISTRIBUTION WIDTH SD (test code = RDW-SD) 44.7 fL 37.0-54.0 N PLATELET COUNT (test code = PLT) 300 x10 3/uL 150-400 N MEAN PLATELET VOLUME (test c ode = MPV) 10.8 fL 7.0-9.0 H NEUTROPHIL % (test code = NT%) 40.8 % 56.0-77.0 L LYMPHOCYTE % (test code = LY%) 49.9 % 14.0-32.0 H NEUTROPHIL # (test code = NT#) 3.19 x10 3/uL 2.0-7.6 N LYMPHOCYTE # (test code = LY#) 3.90 x10 3/uL 1.0-3.8 H IMMATURE GRANULOCYTE % (test code = IG%) 2.2 % 0.0-2.0 H MONOCYTE % (test code = MO%) 4.1 % 4.8-9.0 L EOSINOPHIL % (test code = EO%) 1.8 % 0.3-3.7 N BASOPHIL % (test code = BA%) 1.2 % 0.0-2.0 N NUCLEATED RBC % (test code = NRBC%) 0.0 % 0-0 N IMMATURE GRANULOCYTE # (test code = IG#) 0.17 x10 3/uL 0.00-0.03 H MONOCYTE # (test code = MO#) 0.32 x10 3/uL 0.1-0.8 N EOSINOPHIL # (test code = EO#) 0.14 x10 3/uL 0.0-0.2 N BASOPHIL # (test code = BA#) 0.09 x10 3/uL 0.0-0.2 N NUCLEATED RBC # (test code = NRBC#) 0.00 x10 3/uL 0.0-0.1 N - XR CHEST 2 [id number] 15:30:00 [facility] 1985 Sex: FFAX: Simeon Renteria [phone] [place]: St: REG FAX: Eleazar Romo Name: FERNANDO HAN [facility] : 1985 Age/S: 37/F [address] [place] [address] Bl Unit #: [id number] Loc: [place] [address] Phys: Elena Romo MD Acct: [id number] Dis Date: Status: REG ER PHONE #: Exam Date: 04/18/2023 1521 FAX #: [phone] Reason: fever EXAMS: CPT CODE: [id number] XR CHEST 2 V 50484 EXAMINATION: - XR CHEST 2 V CLINICAL INDICATION: fever COMPARISON: None FINDINGS:There are bandlike hazy opacities in the lower lungs bilaterally, more prominent on the right. No pleural effusion or pneumothorax is seen. Cardiac and mediastinal silhouettes are unremarkable. No acute bony abnormality. IMPRESSION: Findings concerning for pneumonia and/or aspiration in the lung bases, right greater than left. [id number] Reported and signed by: Keanu Luo D.O CC: Simeon Cordova MD; Elena Oconnell MD Technologist: RT Adan(R) Trnscrd Date/Time/By: 04/18/2023 (153) : By: Print D/T: S: 04/18/2023 (153) PAGE 1 Signed ReportMAGNESIUM 2023-04-18 15:21:00* Test Item Value Reference Range Interpretation Comme nts MAGNESIUM (test code = MAG) 2.26 mg/dL 1.6-2.6 N NOTE: NEW NORMAL RANGE COMPREHENSIVE METABOLIC [id number] 15:21:00* Test Item Value Reference Range Interpretation Comme nts SODIUM (test code = NA) 133 mEq/L 134-147 L POTASSIUM (test code = K) 4.4 mEq/L 3.4-5.0 N CHLORIDE (test code = CL) 103 mEq/L 100-108 N CARBON DIOXIDE (test code = CO2) 27 mEq/l 21-33 N ANION GAP (test code = GAP) 8 0-20 N GLUCOSE (test code = GLU) 140 mg/dL 77-141 N NOTE: NEW NORMAL RANGE BLOOD UREA NITROGEN (test code = BUN) 7 mg/dL 7-25 N NOTE: NEW NORM AL RANGE GLOMERULAR FILTRATION RATE (test code = GFR) 114.2 105-110 H The Glomerular Filtration Rate is a calculated parameterbased on serum Creatinine, patient age and sex. GFR valuesless than 60 mL/min/1.73 square meters are indicative ofChronic Kidney Disease. Values less than 15 mL/min/1.73square meters indicate Kidney failure. The calculation forGFR is based on the CKD-EPI (2020) calculation. This formulais race indifferent and is the recommended formula for GFRby the National Kidney Foundation for Adults.The GFR will not calculate if the sex is unknown or if thepatient's age is <18 years. CREATININE (test code = CREAT) 0.7 mg/dL 0.6-1.3 N TOTAL PROTEIN (test code = PROT) 7.5 g/dL 6.4-8.2 N ALBUMIN (test code = ALB) 3.30 g/dL 3.4-5.0 L CALCIUM (test code = CA) 8.3 mg/dL 8.0-10.5 N BILIRUBIN TOTAL (test code = BILT) 0.30 mg/dL 0.0-1.0 N SGOT/AST (test code = AST) 133 IUnit/L 8-34 H NOTE: NEW NORMAL RANGE SGPT/ALT (test code = ALT) 76 IUnit/L 10-49 H NOTE: NEW NORMAL RANGE ALKALINE PHOSPHATASE TOTAL (test code = ALKP) 63 IUnit/L 20-125 N [id number] 15:21:00* Test Item Value Reference Range Interpretation Comme nts LIPASE (test code = LIP) 49 U/L 13-57 N UA RFLX MICR CULT IF [id number] 15:19:00* Test Item Value Reference Range Interpretation Comme nts UA COLOR (test code = COLU) YELLOW YEL/STRAW UA APPEARANCE (test code = APPU) SL CLOUDY CLEAR UA GLUCOSE DIPSTICK (test co de = DGLUU) NEGATIVE NEGATIVE UA BILIRUBIN DIPSTICK (test code = BILU) NEGATIVE NEGATIVE UA KETONE DIPSTICK (test cod e = KETU) NEGATIVE NEGATIVE UA SPECIFIC GRAVITY (test co de = SGU) 1.009 1.005-1.030 N UA BLOOD DIPSTICK (test code = KAILEY) 2+ NEGATIVE A UA PH DIPSTICK (test code = CHARIS) 6.0 5.0-7.0 N UA PROTEIN DIPSTICK (test co de = PROU) NEGATIVE NEGATIVE UA UROBILINIOGEN DIPSTICK (test code = URO) 0.2 mg/dL 0.2-1.0 UA NITRITE DIPSTICK (test co de = TIM) NEGATIVE NEGATIVE UA LEUKOCYTE ESTERASE DIPSTI CK (test code = LEUU) TRACE NEGATIVE A UA WBC (test code = WBCU) 4-9 WBC/HPF 0-3 A UA RBC (test code = RBCU) 0-3 RBC/HPF 0-3 UA WBC NO REFLEX (test code = WBCUCL) 4-9 WBC/HPF 0-3 A UA BACTERIA (test code = BACU) NONE SEEN /HPF NONE SEEN UA SQUAMOUS CELLS (test code = SQU) 0-5 /HPF NONE SEEN UA MUCUS (test code = MUCU) 2+ /LPF NONE SEEN A Indication for culture: Suprapubic PainSpecimen Description: CLEAN CATCHHCG SERUM [id number] 15:16:00* Test Item Value Reference Range Interpretation Comme nts HCG SERUM QUAL (test code = HCGQL) SERUM NEGATIVE NEGATIVE POCT GLUCOSE (AUTOMATED)2023-04-15 13:11:03* Test Item Value Reference Range Interpretation Comme nts POCT GLU (test code = 9517999532) 154 mg/dL 70-110 H Lab Interpretation (test cod e = 96020-9) Abnormal General acute hospital GLUCOSE (AUTOMATED)2023-04-15 01:28:03* Test Item Value Reference Range Interpretation Comme nts POCT GLU (test code = 7413849046) 291 mg/dL 70-110 H Lab Interpretation (test cod e = 58526-0) Abnormal General acute hospital GLUCOSE (AUTOMATED)2023-04-14 21:19:55* Test Item Value Reference Range Interpretation Comme nts POCT GLU (test code = 8961884685) 135 mg/dL 70-110 H Lab Interpretation (test cod e = 37304-5) Abnormal General acute hospital GLUCOSE (AUTOMATED)2023-04-14 16:39:02* Test Item Value Reference Range Interpretation Comme nts POCT GLU (test code = 6081883606) 197 mg/dL 70-110 H Lab Interpretation (test cod e = 27934-7) Abnormal [facility] GLUCOSE (AUTOMATED)2023-04-14 13:02:28* Test Item Value Reference Range Interpretation Comme nts POCT GLU (test code = 9242312885) 150 mg/dL 70-110 H Lab Interpretation (test cod e = 19442-1) [facility]2023-04-14 01:25:21* Test Item Value Reference Range Interpretation Comme nts POCT GLU (test code = 3175852457) 155 mg/dL 70-110 H Lab Interpretation (test cod e = 03941-2) Abnormal [facility] GLUCOSE (AUTOMATED)2023-04-13 21:31:31* Test Item Value Reference Range Interpretation Comme nts POCT GLU (test code = 7636103812) 196 mg/dL 70-110 H Lab Interpretation (test cod e = 86755-3) Abnormal [facility] GLUCOSE (AUTOMATED)2023-04-13 16:22:58* Test Item Value Reference Range Interpretation Comme nts POCT GLU (test code = 2961850616) 181 mg/dL 70-110 H Lab Interpretation (test cod e = 86861-9) Abnormal [facility] GLUCOSE (AUTOMATED)2023-04-13 12:39:15* Test Item Value Reference Range Interpretation Comme nts POCT GLU (test code = 8280107184) 145 mg/dL 70-110 H Lab Interpretation (test cod e = 84733-9) Abnormal [facility] GLUCOSE (AUTOMATED)2023-04-13 01:54:42* Test Item Value Reference Range Interpretation Comme nts POCT GLU (test code = 9409390506) 180 mg/dL 70-110 H Lab Interpretation (test cod e = 52257-5) Abnormal [facility] GLUCOSE (AUTOMATED)2023-04-12 21:55:55* Test Item Value Reference Range Interpretation Comme nts POCT GLU (test code = 7107769422) 128 mg/dL 70-110 H Lab Interpretation (test cod e = 10047-7) Abnormal [facility] GLUCOSE (AUTOMATED)2023-04-12 16:56:29* Test Item Value Reference Range Interpretation Comme nts POCT GLU (test code = 3190497749) 180 mg/dL 70-110 H Lab Interpretation (test cod e = 54813-9) Abnormal General acute hospital GLUCOSE (AUTOMATED)2023-04-12 13:22:00* Test Item Value Reference Range Interpretation Comme nts POCT GLU (test code = 6038013988) 194 mg/dL 70-110 H Lab Interpretation (test cod e = 13091-5) Abnormal General acute hospital GLUCOSE (AUTOMATED)2023-04-12 02:17:34* Test Item Value Reference Range Interpretation Comme nts POCT GLU (test code = 0613962770) 201 mg/dL 70-110 H Lab Interpretation (test cod e = 35404-7) Abnormal General acute hospital GLUCOSE (AUTOMATED)2023-04-11 21:38:51* Test Item Value Reference Range Interpretation Comme nts POCT GLU (test code = 2787898613) 162 mg/dL 70-110 H Lab Interpretation (test cod e = 80768-0) [facility]normal [facility] 20:45:39* Test Item Value Reference Range Interpretation Comme nts IRON (test code = 3704780552) 31 ug/dL 50-160 L Lab Interpretation (test cod e = 81991-9) Abnormal [facility] SouthRETICULOCYTES [id number] 20:18:47* Test Item Value Reference Range Interpretation Comme nts RETIC Count Automated (test code = 9184030963) 1.28 % 0.51-1.90 RETIC Absolute Count (test code = 1837752333) 0.0420 See_Comment [Automa myra message] The system which generated this result transmitted reference range: 0.0230 - 0.0950 10*6/?L. The reference range was not used to interpret this result as normal/abnormal. IRF % (test code = 0141245667) 27.60 % 2.10-12.60 H RETIC-HE (test code = 2188481080) 29.2 pg 28.1-35.8 Lab Interpretation (test code = 46148-7) Abnormal [facility] GLUCOSE (AUTOMATED)2023-04-11 16:16:45* Test Item Value Reference Range Interpretation Comme nts POCT GLU (test code = 8480886646) 207 mg/dL 70-110 H Lab Interpretation (test cod e = 54032-5) [facility] 12:38:11* Test Item Value Reference Range Interpretation Comme [facility] POCT GLU (test code = 6113302940) 182 mg/dL 70-110 H Lab Interpretation (test cod e = 96323-8) Abnormal [facility] WITH [id number] 11:13:44* Test Item Value Reference Range Interpretation Comme nts WBC (test code = 6690-2) 3.96 See_Comment L [Automated messa ge] The system which generated this result transmitted reference range: 4.30 - 11.10 10*3/?L. The reference range was not used to interpret this result as normal/abnormal. RBC (test code = 789-8) 3.34 See_Comment L [Automated messa ge] The system which generated this result transmitted reference range: 3.93 - 5.25 10*6/?L. The reference range was not used to interpret this result as normal/abnormal. HGB (test code = 718-7) 9.3 g/dL 11.6-15.0 L HCT (test code = 4544-3) 28.7 % 35.7-45.2 L MCV (test code = 787-2) 85.9 fL 80.6-95.5 MCH (test code = 785-6) 27.8 pg 25.9-32.8 MCHC (test code = 786-4) 32.4 g/dL 31.6-35.1 RDW-SD (test code = 48254-8) 42.7 fL 39.0-49.9 RDW-CV (test code = 788-0) 13.7 % 12.0-15.5 PLT (test code = 777-3) 173 See_Comment [Automated messa ge] The system which generated this result transmitted reference range: 166 - 358 10*3/?L. The reference range was not used to interpret this result as normal/abnormal. MPV (test code = 44369-2) 11.1 fL 9.5-12.9 NRBC/100 WBC (test code = 0554967096) 0.0 See_Comment [Automated me ssage] The system which generated this result transmitted reference range: 0.0 - 10.0 /100 WBCs. The reference range was not used to interpret this result as normal/abnormal. NRBC x10^3 (test code = 5839840675) See_Comment [Automated Cirqle.nla ge] The system which generated this result transmitted reference range: 10*3/?L. The reference range was not used to interpret this result as normal/abnormal. SEG % (test code = 98721-6) 48 % 33-76 LYMPH % (test code = 97730-3) 36 % 14-54 MONO % (test code = 99559-2) 12 % 0-4 H EOS % (test code = 27014-0) 4 % 0-3 H ANC (test code = 753-4) 1.90 10*3/uL 1.88-7.09 Lab Interpretation (test code = 60629-8) Abnormal [facility] METABOLIC PANEL (NA, K, CL, CO2, GLUCOSE, BUN, CREATININE, CA)2023-04-11 11:09:06* Test Item Value Reference Range Interpretation Comme nts NA (test code = 8594019711) 137 mmol/L 135-145 K (test code = 2135446517) 3.2 mmol/L 3.5-5.0 L CL (test code = 3215433075) 104 mmol/L 98-108 CO2 TOTAL (test code = 4938139124) 23 mmol/L 23-31 AGAP (test code = 2428046582) 10 2-16 BUN (test code = 2549715656) 6 mg/dL 7-23 L GLUCOSE (test code = 1193229516) 154 mg/dL 70-110 H CREATININE (test code = 1281650356) 0.44 mg/dL 0.50-1.04 L CALCIUM (test code = 9530456701) 8.2 mg/dL 8.6-10.6 L eGFR (test code = 6297005500) 160.9 mL/min/1.73m2 HENRIK (test code = HENRIK) Association of Glomerular Filtration Rate (GFR) and Staging of Kidney Disease* + --+ --+ ------+| GFR (mL/min/1.73 m2) ?| With Kidney Damage ?| ?Without Kidney Damage+ --------+ --------+ +| ?>90 ?| ?Stage one ?| ? Normal ?+ ---+ ---+ -------+| ?60-89 ?| ?Stage two ?| ? Decreased GFR ? + --+ --+ ------+| ?30-59 ?| ?Stage three ?| ? Stage three ? + --+ --+ ------+| ?15-29 ?| ?Stage four ? | ? Stage four ?+ ---+ ---+ -------+| ?<15 (or dialysis) ? ?| ?Stage five ? | ? Stage five ?+ ---+ ---+ -------+ *Each stage assumes the associated GFR level has been in effect for at least three months. ?Stages 1 to 5, with or without kidney disease, indicate chronic kidney disease. Notes: Determination of stages one and two (with eGFR >59mL/min/1.73 m2) requires estimation of kidney damage for at least three months as defined by structural or functional abnormalities of the kidney, manifested by either:Pathological abnormalities or Markers of kidney damage (including abnormalities in the composition of the blood or urine or abnormalities in imaging tests). Lab Interpretation (test code = 98890-1) Abnormal [facility] acute hospital GLUCOSE (AUTOMATED)2023-04-11 02:12:05* Test Item Value Reference Range Interpretation Comme nts POCT GLU (test code = 1313842090) 280 mg/dL 70-110 H Notified Provide r Lab Interpretation (test code = 22765-3) Abnormal [facility] acute hospital GLUCOSE (AUTOMATED)2023-04-10 21:23:35* Test Item Value Reference Range Interpretation Comme nts POCT GLU (test code = 0551259855) 180 mg/dL 70-110 H Lab Interpretation (test cod e = 15175-8) Abnormal [facility] acute hospital GLUCOSE (AUTOMATED)2023-04-10 16:58:23* Test Item Value Reference Range Interpretation Comme nts POCT GLU (test code = 8138539524) 183 mg/dL 70-110 H Lab Interpretation (test cod e = 97185-5) Abnormal General acute hospital GLUCOSE (AUTOMATED)2023-04-10 12:29:36* Test Item Value Reference Range Interpretation Comme nts POCT GLU (test code = 1191893763) 158 mg/dL 70-110 H Lab Interpretation (test cod e = 39626-5) Abnormal [facility] GLUCOSE (AUTOMATED)2023-04-10 01:10:41* Test Item Value Reference Range Interpretation Comme nts POCT GLU (test code = 5639508915) 191 mg/dL 70-110 H Lab Interpretation (test cod e = 68814-1) [facility] 22:05:28* Test Item Value Reference Range Interpretation Comme nts POCT GLU (test code = 5815269505) 227 mg/dL 70-110 H Lab Interpretation (test cod e = 84845-0) [facility] 16:10:09* Test Item Value Reference Range Interpretation Comme nts POCT GLU (test code = 0764087174) 176 mg/dL 70-110 H Lab Interpretation (test cod e = 49803-2) Abnormal [facility] GLUCOSE (AUTOMATED)2023-04-09 12:56:01* Test Item Value Reference Range Interpretation Comme nts POCT GLU (test code = 2321974305) 212 mg/dL 70-110 H Lab Interpretation (test cod e = 44513-8) Abnormal [facility] GLUCOSE (AUTOMATED)2023-04-09 00:55:56* Test Item Value Reference Range Interpretation Comme nts POCT GLU (test code = 0153402149) 239 mg/dL 70-110 H Lab Interpretation (test cod e = 15516-5) Abnormal [facility] GLUCOSE (AUTOMATED)2023-04-08 21:14:57* Test Item Value Reference Range Interpretation Comme nts POCT GLU (test code = 2305113346) 155 mg/dL 70-110 H Lab Interpretation (test cod e = 51409-4) Abnormal [facility] GLUCOSE (AUTOMATED)2023-04-08 16:17:36* Test Item Value Reference Range Interpretation Comme nts POCT GLU (test code = 5919627763) 200 mg/dL 70-110 H Lab Interpretation (test cod e = 46229-7) Abnormal [facility] GLUCOSE (AUTOMATED)2023-04-08 12:57:55* Test Item Value Reference Range Interpretation Comme nts POCT GLU (test code = 4133354032) 176 mg/dL 70-110 H Lab Interpretation (test cod e = 48807-9) Abnormal [facility] GLUCOSE (AUTOMATED)2023-04-08 01:06:36* Test Item Value Reference Range Interpretation Comme nts POCT GLU (test code = 2604924653) 174 mg/dL 70-110 H Lab Interpretation (test cod e = 73712-5) [facility]-07 22:29:32* Test Item Value Reference Range Interpretation Comme nts POCT GLU (test code = 6337161994) 195 mg/dL 70-110 H Lab Interpretation (test cod e = 52857-4) Abnormal [facility] GLUCOSE (AUTOMATED)2023-04-07 16:41:22* Test Item Value Reference Range Interpretation Comme nts POCT GLU (test code = 4439998607) 207 mg/dL 70-110 H Lab Interpretation (test cod e = 35680-7) Abnormal [facility] GLUCOSE (AUTOMATED)2023-04-07 14:30:47* Test Item Value Reference Range Interpretation Comme nts POCT GLU (test code = 9843732796) 188 mg/dL 70-110 H Lab Interpretation (test cod e = 82616-9) [facility] 13:22:47* Test Item Value Reference Range Interpretation Comme nts POCT GLU (test code = 0135842416) 180 mg/dL 70-110 H Lab Interpretation (test cod e = 38474-6) [facility] 11:30:49* Test Item Value Reference Range Interpretation Comme nts POCT GLU (test code = 2233686464) 144 mg/dL 70-110 H Lab Interpretation (test cod e = 17290-9) [facility]-07 10:33:28* Test Item Value Reference Range Interpretation Comme nts POCT GLU (test code = 1962971295) 160 mg/dL 70-110 H Lab Interpretation (test cod e = 16402-3) Abnormal [facility] GLUCOSE (AUTOMATED)2023-04-07 09:33:04* Test Item Value Reference Range Interpretation Comme nts POCT GLU (test code = 2163596475) 184 mg/dL 70-110 H Lab Interpretation (test cod e = 96098-2) Abnormal [facility] GLUCOSE (AUTOMATED)2023-04-07 08:28:58* Test Item Value Reference Range Interpretation Comme nts POCT GLU (test code = 0452946243) 205 mg/dL 70-110 H Lab Interpretation (test cod e = 89267-5) Abnormal [facility] GLUCOSE (AUTOMATED)2023-04-07 07:27:23* Test Item Value Reference Range Interpretation Comme nts POCT GLU (test code = 8627963038) 191 mg/dL 70-110 H Lab Interpretation (test cod e = 78629-7) Abnormal [facility] GLUCOSE (AUTOMATED)2023-04-07 06:32:38* Test Item Value Reference Range Interpretation Comme nts POCT GLU (test code = 4324304514) 184 mg/dL 70-110 H Lab Interpretation (test cod e = 58897-6) Abnormal [facility] GLUCOSE (AUTOMATED)2023-04-07 05:28:32* Test Item Value Reference Range Interpretation Comme nts POCT GLU (test code = 0187168829) 172 mg/dL 70-110 H Lab Interpretation (test cod e = 38964-0) Abnormal [facility] GLUCOSE (AUTOMATED)2023-04-07 04:28:06* Test Item Value Reference Range Interpretation Comme nts POCT GLU (test code = 4081101028) 149 mg/dL 70-110 H Lab Interpretation (test cod e = 45272-2) Abnormal [facility] GLUCOSE (AUTOMATED)2023-04-07 03:27:10* Test Item Value Reference Range Interpretation Comme nts POCT GLU (test code = 1345441461) 143 mg/dL 70-110 H Lab Interpretation (test cod e = 59015-3) Abnormal [facility] GLUCOSE (AUTOMATED)2023-04-07 02:34:46* Test Item Value Reference Range Interpretation Comme nts POCT GLU (test code = 0330408369) 131 mg/dL 70-110 H Lab Interpretation (test cod e = 29082-7) Abnormal [facility] GLUCOSE (AUTOMATED)2023-04-07 01:31:59* Test Item Value Reference Range Interpretation Comme nts POCT GLU (test code = 4149550085) 160 mg/dL 70-110 H Lab Interpretation (test cod e = 32094-4) Abnormal [facility] acute hospital GLUCOSE (AUTOMATED)2023-04-07 00:32:21* Test Item Value Reference Range Interpretation Comme nts POCT GLU (test code = 9913124633) 163 mg/dL 70-110 H Lab Interpretation (test cod e = 16453-5) Abnormal [facility] GLUCOSE (AUTOMATED)2023-04-06 23:29:22* Test Item Value Reference Range Interpretation Comme nts POCT GLU (test code = 6522547500) 162 mg/dL 70-110 H Lab Interpretation (test cod e = 05030-3) Abnormal [facility] acute hospital GLUCOSE (AUTOMATED)2023-04-06 22:40:00* Test Item Value Reference Range Interpretation Comme nts POCT GLU (test code = 0995503528) 153 mg/dL 70-110 H Lab Interpretation (test cod e = 44205-2) Abnormal [facility] acute hospital GLUCOSE (AUTOMATED)2023-04-06 20:31:52* Test Item Value Reference Range Interpretation Comme nts POCT GLU (test code = 2782117797) 177 mg/dL 70-110 H Lab Interpretation (test cod e = 99251-5) Abnormal General acute hospital GLUCOSE (AUTOMATED)2023-04-06 19:32:54* Test Item Value Reference Range Interpretation Comme nts POCT GLU (test code = 3008285113) 175 mg/dL 70-110 H Lab Interpretation (test cod e = 44572-5) Abnormal General acute hospital GLUCOSE (AUTOMATED)2023-04-06 18:40:21* Test Item Value Reference Range Interpretation Comme nts POCT GLU (test code = 1537805457) 165 mg/dL 70-110 H Lab Interpretation (test cod e = 50363-8) Abnormal General acute hospital GLUCOSE (AUTOMATED)2023-04-06 18:01:17* Test Item Value Reference Range Interpretation Comme nts POCT GLU (test code = 4479281175) 176 mg/dL 70-110 H Lab Interpretation (test cod e = 87386-6) [facility] 16:44:36* Test Item Value Reference Range Interpretation Comme nts POCT GLU (test code = 7808467280) 208 mg/dL 70-110 H Lab Interpretation (test cod e = 65236-0) [facility] 15:30:07* Test Item Value Reference Range Interpretation Comme nts POCT GLU (test code = 6403413224) 229 mg/dL 70-110 H Lab Interpretation (test cod e = 77799-2) Abnormal [facility] GLUCOSE (AUTOMATED)2023-04-06 14:16:04* Test Item Value Reference Range Interpretation Comme nts POCT GLU (test code = 7787896329) 220 mg/dL 70-110 H Lab Interpretation (test cod e = 96501-0) Abnormal General acute hospital GLUCOSE (AUTOMATED)2023-04-06 13:12:44* Test Item Value Reference Range Interpretation Comme nts POCT GLU (test code = 8271125775) 230 mg/dL 70-110 H Lab Interpretation (test cod e = 01949-1) Abnormal [facility] GLUCOSE (AUTOMATED)2023-04-06 12:04:08* Test Item Value Reference Range Interpretation Comme nts POCT GLU (test code = 2651456170) 236 mg/dL 70-110 H Lab Interpretation (test cod e = 34968-6) Abnormal [facility] GLUCOSE (AUTOMATED)2023-04-06 11:17:46* Test Item Value Reference Range Interpretation Comme nts POCT GLU (test code = 4554100734) 239 mg/dL 70-110 H Lab Interpretation (test cod e = 61467-5) Abnormal [facility] GLUCOSE (AUTOMATED)2023-04-06 10:19:27* Test Item Value Reference Range Interpretation Comme nts POCT GLU (test code = 5471873140) 244 mg/dL 70-110 H Lab Interpretation (test cod e = 18373-5) Abnormal [facility] acute hospital GLUCOSE (AUTOMATED)2023-04-06 09:27:36* Test Item Value Reference Range Interpretation Comme nts POCT GLU (test code = 7744472135) 231 mg/dL 70-110 H Lab Interpretation (test cod e = 01022-3) [facility] [id number] 19:20:13* Test Item Value Reference Range Interpretation Comme nts URINE CULTURE (test code = 630-4) No aerobic growth (< 1000 CFU/mL) General acute hospital GLUCOSE (AUTOMATED)2022-02-10 12:40:45* Test Item Value Reference Range Interpretation Comme nts POCT GLU (test code = 6058653305) 123 mg/dL 70-110 H Lab Interpretation (test cod e = 14816-0) Abnormal [facility] acute hospital GLUCOSE (AUTOMATED)2022-02-10 12:40:45* Test Item Value Reference Range Interpretation Comme nts POCT GLU (test code = 4037788930) 123 mg/dL 70-110 H Lab Interpretation (test cod e = 47999-5) Abnormal [facility] acute hospital [id number] 12:34:00* Test Item Value Reference Range Interpretation Comme nts POCT PREG (test code = 1605) Negative On board controls acceptable with C Line (test code = 3574) Yes POCT PREG LOT # (test code = 3575) [id number] POCT PREG TEST DATE ( test code = 3576) 2023-04-08 Lab Interpretation (test cod e = 66208-4) Normal General acute hospital [id number] 12:34:00* Test Item Value Reference Range Interpretation Comme nts POCT PREG (test code = 1605) Negative On board controls acceptable with C Line (test code = 3574) Yes POCT PREG LOT # (test code = 3575) [id number] POCT PREG TEST DATE ( test code = 3576) 2023-04-08 Lab Interpretation (test cod e = 92251-3) Normal General acute hospital [id number] 12:33:00* Test Item Value Reference Range Interpretation Comme nts POCT Glu (age>30days) (test code = 3342) 123 mg/dL 70-110 A Lab Interpretation (test cod e = 75612-9) Abnormal General acute hospital [id number] 12:33:00* Test Item Value Reference Range Interpretation Comme nts POCT Glu (age>30days) (test code = 3342) 123 mg/dL 70-110 A Lab Interpretation (test cod e = 84014-5) Abnormal General acute hospital [id number] 17:38:00* Test Item Value Reference Range Interpretation Comme nts POCT PREG (test code = 1605) negative On board controls acceptable with C Line (test code = 3574) present POCT PREG LOT # (test code = 3575) [id number] POCT PREG TEST DATE ( test code = 3576) Lab Interpretation (test cod e = 39441-3) Normal General acute hospital GLUCOSE (AUTOMATED)2022-02-03 13:22:04* Test Item Value Reference Range Interpretation Comme nts POCT GLU (test code = 6441608017) 122 mg/dL 70-110 H Lab Interpretation (test cod e = 15186-6) Abnormal General acute hospital GLUCOSE (AUTOMATED)2022-02-03 13:22:04* Test Item Value Reference Range Interpretation Comme nts POCT GLU (test code = 0454005249) 122 mg/dL 70-110 H Lab Interpretation (test cod e = 65499-3) Abnormal General acute hospital [id number] 13:00:00* Test Item Value Reference Range Interpretation Comme nts POCT PREG (test code = 1605) Negative On board controls acceptable with C Line (test code = 3574) Yes POCT PREG LOT # (test code = 3575) [id number] POCT PREG TEST DATE ( test code = 3576) 2023-04-08 General acute hospital [id number] 13:00:00* Test Item Value Reference Range Interpretation Comme nts POCT PREG (test code = 1605) Negative On board controls acceptable with C Line (test code = 3574) Yes POCT PREG LOT # (test code = 3575) [id number] POCT PREG TEST DATE ( test code = 3576) 2023-04-08 [facility] Notes Date/Time Note Provider Source 2023-11-18 22:20:00 Pt discharged with diagnosis of UTI, pancreatitis. Printed and verbal instructions reviewed with and given to pt. Prescriptions given x 3. Pt verbalized understanding of teaching, adherence to clear liquid diet, prescription use, and recommended follow-up. Denies questions or concerns at this time. Pt ambulatory at discharge. Appears in no apparent distress. No ataxia noted. T Iliana Benavides RN [facility] 2023-11-18 21:08:[address] T [facility] 2023-11-18 20:58:[address] [facility] 2023-11-18 20:49:39 Lab results competed. Pt awaiting CT scan. Ambulated to bathroom and back w/out difficulty. NAD noted. In recliner on phone at this time. [facility] 2023-11-18 19:14:06 Pt c/o pain 7/10 post toradol. Would like something else for pain. Dr Connors gave verbal order for fentanyl 50 mcg IVP x 1. [facility] 2023-11-18 18:15:41 Pt states pain "much better." Awaiting lab results and CT scan to be done. In recliner, resting quietly. [facility] 2023-11-18 17:37:52 Pt in recliner, resting quietly. C/O pain to upper abdomen (lynette LUQ) that radiates to mid-lower back. Medicated per EMAR. Pt awaiting CT scan and lab results. [facility] 2023-11-18 16:30:56 Patient to ED for abdominal with pain radiating to her back. Reports she was admitted tot [facility] for 2 weeks last time for pancreatitis. No fever but has had nausea and vomiting. Nickolas Borjas RN [facility] 2023-11-18 16:16:00 The patient was signed out pending results of laboratory studies as well as imaging and reevaluation. The patient is doing well here in the ER. She reports her nausea and vomiting has resolved and her abdominal pain is much improved. Her laboratory studies showed an elevated lipase of approximately 600. Her LFTs are okay. Her urinalysis shows an infection and she was given a dose of Rocephin here in the ER. A CT of her abdomen pelvis shows pancreatitis but no pseudocyst or necrosis. Spoke with the patient at length regarding the option to be admitted for IV hydration as well as pain control for pancreatitis versus being discharged home. The patient would prefer to be discharged home. Advised the patient that if she is unable to tolerate by mouth or if her pain worsens despite the medication she is prescribed she should return to the emergency room. She remained stable here in the ER and is okay for discharge home with PCP follow-up. Recent Results (from the past 24 hour(s)) Cbc with Diff Collection Time: 11/18/23 5:09 PM Result Value Ref Range WBC 10.23 4.30 - 11.10 10*3/?L RBC 4.86 3.93 - 5.25 10*6/?L HGB 13.6 11.6 - 15.0 g/dL HCT 37.7 35.7 - 45.2 % MCV 77.6 (L) 80.6 - 95.5 fL MCH 28.0 25.9 - 32.8 pg MCHC 36.1 (H) 31.6 - 35.1 g/dL RDW-SD 46.4 39.0 - 49.9 fL RDW-CV 16.5 (H) 12.0 - 15.5 % PLT 265 166 - 358 10*3/?L MPV 11.3 9.5 - 12.9 fL NRBC/100 WBC 0.0 0.0 - 10.0 /100 WBCs NRBC x10 3 <0.01 10*3/?L GRAN MAT (NEUT) % 61.1 % IMM GRAN % 0.50 % LYMPH % 30.4 % MONO % 6.1 % EOS % 1.3 % BASO % 0.6 % GRAN MAT x10 3 (ANC) 6.26 1.88 - 7.09 10*3/uL IMM GRAN x10 3 0.05 0.00 - 0.06 10*3/uL LYMPH x10 3 3.11 1.32 - 3.29 10*3/uL MONO x10 3 0.62 0.33 - 0.92 10*3/uL EOS x10 3 0.13 0.03 - 0.39 10*3/uL BASO x10 3 0.06 0.01 - 0.07 10*3/uL Lipase Collection Time: 11/18/23 5:09 PM Result Value Ref Range LIPASE 682 (H) 0 - 220 U/L Urinalysis Collection Time: 11/18/23 5:09 PM Result Value Ref Range APPEARANCE Cloudy (A) Clear COLOR Yellow Yellow PH 6.0 4.8 - 8.0 SP GRAVITY 1.028 1.003 - 1.030 GLU U QUAL 500 mg/dL (A) Normal BLOOD 1+ (A) Negative KETONES 20 mg/dL (A) Negative PROTEIN 30 mg/dL (A) Negative UROBILIN 2.0 mg/dL (A) Normal BILIRUBIN Negative Negative NITRITE Negative Negative LEUK PAMELA 250/uL (A) Negative RBC/HPF 8 (H) 0 - 3 HPF WBC/HPF 93 (H) 0 - 5 HPF BACTERIA Many (A) Negative MUCOUS Slight (A) Negative LPF SQ EPITH 12 HPF HYAL CAST 4 (H) <=2 LPF POCT Test Collection Time: 11/18/23 5:56 PM Result Value Ref Range POCT PREG Negative On board controls acceptable with C Line Yes POCT PREG LOT # [id number] POCT PREG TEST DATE ,820,574 Troponin I Collection Time: 11/18/23 6:23 PM Result Value Ref Range TROPONIN I 0.026 <=0.034 ng/mL Comp. Metabolic Panel (00518) Collection Time: 11/18/23 7:49 PM Result Value Ref Range NA 130 (L) 135 - 145 mmol/L K 4.6 3.5 - 5.0 mmol/L CL 104 98 - 108 mmol/L CO2 TOTAL 19 (L) 23 - 31 mmol/L AGAP 7 2 - 16 BUN 9 7 - 23 mg/dL GLUCOSE 182 (H) 70 - 110 mg/dL CREATININE 0.32 (L) 0.50 - 1.04 mg/dL TOTAL BILI 1.2 (H) 0.1 - 1.1 mg/dL CALCIUM 7.7 (L) 8.6 - 10.6 mg/dL T PROTEIN 7.3 6.3 - 8.2 g/dL ALBUMIN 3.7 3.5 - 5.0 g/dL ALK PHOS 77 34 - 122 U/L ALTv 43 (H) 5 - 35 U/L AST(SGOT) 66 (H) 13 - 40 U/L eGFR 137.3 mL/min/1.73m2 Hospital Encounter on 11/18/23 CT ABDOMEN PELVIS W CONTRAST Narrative CT ABDOMEN PELVIS W CONTRAST HISTORY: Abdominal abscess/infection suspected Evaluate for acute pancreatitis COMPARISON: April 12, 2023 TECHNIQUE: CT abdomen and pelvis with intravenous contrast. All CT scans at this facility use dose modulation, iterative reconstruction, and/or weight based dosing when appropriate to reduce radiation dose to as low as reasonably achievable. FINDINGS: The visualized lung bases are clear. The liver contour is smooth. There is fatty infiltration of the liver. There is no discrete liver mass or intrahepatic biliary dilatation. There is inflammation of the tail the pancreas compatible with acute pancreatitis. The spleen and adrenal glands are unremarkable. There are nonobstructing stones in the left kidney measuring up to 6 mm. There is a small cyst in the upper pole of the right kidney. The bladder is empty. The gallbladder has been removed. Gastric bypass has been performed. The gastrointestinal tract is unobstructed. There is no intraperitoneal free air or free fluid. The appendix is unremarkable. There is no abdominal aortic aneurysm. There are no destructive bone lesions. The uterus is present. There is a 2.2 cm cyst in the left ovary. On the sagittal reconstructed images vertebral body height and alignment are maintained in the lumbar spine. Lordotic curvature is maintained. Intervertebral disc spaces are maintained. Impression Acute pancreatitis. Prior cholecystectomy and gastric bypass. Nonobstructing stones measuring up to 6 mm in the left kidney. Small cyst in the left ovary. Ordering physician: TAM CONNORS RL [id number] Karol Jackson DO 11/18/230 [facility] [facility] 2023-08-15 17:07:56 PT D/C home. GCS15, VS stable, no ataxia noted. Given three prescriptions and D/C paperwork. Pt ambulatory with spouse at time of discharge. Pt educated on strep, hydration, med usage, follow up care, s/s worsening condition. Pt verbalized understanding. /PARAMEDIC Kerry Erickson RN [facility] 2023-08-15 14:28:05 Pt c/o fatigue, fever, chills, body aches, headache, runny nose that started today ~1145. No meds taken [employer] MAN. MARY Roberts RN [facility] 2023-04-18 14:29:00 [facility] ([facility]) EMERGENCY PROVIDER REPORT REPORT#:[id number] REPORT STATUS: Signed DATE:04/18/23 TIME: 1428 PATIENT: FERNANDO HAN UNIT #: [id number] ROOM/BED: AGE: 37 SEX: F PCP PHYS: Simeon Ordonez MD SERVICE AUTHOR: Elena Romo MD * ALL edits or amendments must be made on the electronic/computer document * Eleazar Romo 04/18/23 1429: HPI-Abd Pain F Under 40 Free Text HPI Notes Free Text HPI Notes 37-year-old female past medical history of diabetes who presents to ED for evaluation due to fever. Patient states she was recently hospitalized at another institution for pancreatitis. States since then she has been having fever for the past 4 days. Reports associated left-sided upper abdominal pain and occasional nausea. Patient states that she was told she had to have rhinovirus prior to discharge from last hospitalization. States she is not satisfied with this answer and wants to know if she continues to have a fever. Patient denies associated nasal congestion, cough, sore throat, difficulty breathing, dysuria. No other symptoms or complaints reported. General Initial Greet Date/Time 04/18/23 1415 Presentation Chief Complaint Fever Review of Systems Free Text ROS Notes Free Text ROS Notes ROS negative except as document in HPI Past Medical History - Adult Stated Complaint RECENT PANCRATITIS, ABD PAIN, 103 FEVER Allergies Coded Allergies: No Known Allergies (04/18/23) Home Medications Active Scripts NIFEdipine XL (PROCARDIA XL) 30 MG PO Q12H NIFEdipine XL (PROCARDIA XL) 30 MG PO Q12H #60 TAB Ref 3 Prov: 09/30/16 IBUPROFEN (MOTRIN) 800 MG PO Q8H PRN PRN MILD PAIN (SCORE 1 - 3) IBUPROFEN (MOTRIN) 800 MG PO Q8H PRN PRN MILD PAIN (SCORE 1 - 3) #30 TAB Prov: 09/30/16 traMADol (ULTRAM) 100 MG PO Q6H PRN PRN pain traMADol (ULTRAM) 100 MG PO Q6H PRN PRN pain #30 TAB Prov: 09/30/16 DOCUSATE SODIUM (COLACE) 100 MG PO 0900,2100 DOCUSATE SODIUM (COLACE) 100 MG PO 0900,2100 #60 CAP Ref 3 Prov: 09/30/16 metFORMIN XR (GLUCOPHAGE XR) 1,000 MG PO BID Ref 11 Prov: 09/30/16 Reported Medications PNV/FE FUM/FA ( MULTIVITAMIN) 1 TAB PO DAILY Physical Exam Vital Signs Review of Vital Signs Reviewed Free Text PE Notes Free Text PE Notes Gen: Well appearing, well hydrated, cooperative Head: Normocephalic, atraumatic Eyes: EOMI, normal conjunctiva ENT: MMM, airway patent Neck: supple, no LAD Lungs: CTAB no R/R/W Heart: RRR, normal pulses Abd: S/NT/ND, normal BS, no rebound or guarding Ext: FROM BUE/LE, no deformity Neuro: A O x 3, CN II-XII grossly intact. Strength and sensation grossly intact Re-Evaluation MDM Free Text MDM Notes Free Text MDM Notes 37-year-old female presented today for evaluation due to fever and associated abdominal pain ongoing for at least 4 days. Patient had a recent hospitalization for pancreatitis. Was also told she had rhinovirus during this hospitalization. Vital signs at emergency department within normal limits. On physical examination abdomen is soft and depressible, benign without any rebound or guarding. No SIRS criteria on vital signs. Lab work ordered including CBC, CMP, lipase, test, urinalysis. We will also order chest x-ray and abdominal pelvic CT. ED Course Medication(s) Ordered Medication(s) Ordered: Central Nervous System Agents Sig/Gama Start time Last Medication Dose Route Stop Time Status Admin Acetaminophen 1,000 MG X1ED STA 04/18 1815 DC 04/18 PO 04/18 181 1817 Ketorolac 15 MG X1ED STA 04/18 1428 DC 04/18 Tromethamine IV 04/18 1429 1455 Diagnostic Agents Sig/Gama Start time Last Medication Dose Route Stop Time Status Admin Iopamidol 100 ML .STK-MED ONE 04/18 1613 DC 04/18 IV 04/18 1614 1613 Electrolytic, Caloric, And Nikole Sig/Gama Start time Last Medication Dose Route Stop Time Status Admin Sodium Chloride 1,000 ML X1ED STA 04/18 1428 DC 04/18 IV 04/18 1527 1455 Patient Discharge Departure Discharge/Care Plan Referrals Provider Referral: Tavon House MD Follow-Up: Call for appointment Address: [address] [place] [address] [id number] [place] [address] Rishabh Hillman 04/18/23 1615: Physical Exam Vital Signs Vital Signs First Documented: Result Date Time Pulse Ox 96 04/18 1420 B/P 101/72 04/18 142 B/P Mean 81 04/18 142 O2 Delivery Room air 04/18 142 Temp 37.2 04/18 142 Pulse 79 04/18 1420 Resp 19 04/18 142 Last Documented: Result Date Time Pulse Ox 100 04/18 1804 B/P 126/76 04/18 1804 B/P Mean 92.6 04/18 1804 Temp 37.2 04/18 1804 Pulse 72 04/18 180 O2 Delivery Room air 04/18 142 Resp 19 04/18 1420 Interpretation Diagnostics Lab Results Interpretation Results Laboratory Tests 04/18/23 143: [Embedded Image Not Available] Laboratory Tests: 04/18 04/18 04/18 1700 1500 1438 Chemistry Serum , Qual (NEGATIVE) SERUM NEGATIVE Serology SARS-CoV-2 Ag (Rapid) (Negative) Negative Urines Urine Color (YEL/STRAW) YELLOW Urine Appearance (CLEAR) SL CLOUDY Urine pH (5.0 - 7.0) 6.0 Ur Specific [place] (1.005 - 1.030) 1.009 Urine Protein (NEGATIVE) NEGATIVE Urine Glucose (UA) (NEGATIVE) NEGATIVE Urine Ketones (NEGATIVE) NEGATIVE Urine Blood (NEGATIVE) 2+ H Urine Nitrite (NEGATIVE) NEGATIVE Urine Bilirubin (NEGATIVE) NEGATIVE Urine Urobilinogen (0.2 - 1.0 mg/dL) 0.2 Ur Leukocyte Esterase (NEGATIVE) TRACE H Urine RBC (0 - 3 RBC/HPF) 0-3 Urine WBC (0 - 3 WBC/HPF) 4-9 H Ur Squamous Epith Cells (NONE SEEN /HPF) 0-5 Urine Bacteria (NONE SEEN /HPF) NONE SEEN Urine Mucus (NONE SEEN /LPF) 2+ H 04/18 1438 Chemistry Sodium (134 - 147 mEq/L) 133 L Potassium (3.4 - 5.0 mEq/L) 4.4 Chloride (100 - 108 mEq/L) 103 Carbon Dioxide (21 - 33 mEq/l) 27 Anion Gap (0 - 20) 8 BUN (7 - 25 mg/dL) 7 Creatinine (0.6 - 1.3 mg/dL) 0.7 Glomerular Filtr Rate (105 - 110) 114.2 H Glucose (77 - 141 mg/dL) 140 Calcium (8.0 - 10.5 mg/dL) 8.3 Magnesium (1.6 - 2.6 mg/dL) 2.26 Total Bilirubin (0.0 - 1.0 mg/dL) 0.30 AST (8 - 34 IUnit/L) 133 H ALT (10 - 49 IUnit/L) 76 H Total Alk Phosphatase (20 - 125 IUnit/L) 63 Total Protein (6.4 - 8.2 g/dL) 7.5 Albumin (3.4 - 5.0 g/dL) 3.30 L Lipase (13 - 57 U/L) 49 Hematology WBC (4.5 - 11.0 x10 3/uL) 7.8 RBC (3.54 - 5.02 x10 6/uL) 3.86 Hgb (11.0 - 15.0 g/dL) 10.5 L Hct (33.0 - 45.0 %) 33.5 MCV (81.0 - 99.0 fL) 86.8 MCH (27.0 - 33.0 pg) 27.2 MCHC (33.0 - 37.0 g/dL) 31.3 L RDW (11.5 - 14.5 %) 14.3 Plt Count (150 - 400 x10 3/uL) 300 MPV (7.0 - 9.0 fL) 10.8 H Neut % (Auto) (56.0 - 77.0 %) 40.8 L Lymph % (Auto) (14.0 - 32.0 %) 49.9 H Armstrong % (Auto) (4.8 - 9.0 %) 4.1 L Eos % (Auto) (0.3 - 3.7 %) 1.8 Baso % (Auto) (0.0 - 2.0 %) 1.2 Neut # (Auto) (2.0 - 7.6 x10 3/uL) 3.19 Lymph # (Auto) (1.0 - 3.8 x10 3/uL) 3.90 H Armstrong # (Auto) (0.1 - 0.8 x10 3/uL) 0.32 Eos # (Auto) (0.0 - 0.2 x10 3/uL) 0.14 Baso # (Auto) (0.0 - 0.2 x10 3/uL) 0.09 Abs Immat Gran (auto) (0.00 - 0.03 x10 3/uL) 0.17 H Immature Gran % (0.0 - 2.0 %) 2.2 H Nucleated RBC % (0 - 0 %) 0.0 Nucleated RBCs # (Man) (0.0 - 0.1 x10 3/uL) 0.00 Recent Impressions: RADIOLOGY - XR CHEST 2 V 04/18 1521 Report Impression - Status: SIGNED Entered: 04/18/2023 1533 IMPRESSION: Findings concerning for pneumonia and/or aspiration in the lung bases, right greater than left. Impression By: DR.BAGAR Ratna Luo D.O CAT SCAN - CT ABD PELVIS W/CONT 04/18 1606 Report Impression - Status: SIGNED Entered: 04/18/2023 1639 IMPRESSION: Mild inflammatory changes along the pancreas relate to acute pancreatitis. No fluid collection. Wedge-shaped hypodensity in the spleen concerning for a small infarct. Impression By: [email or web address] Ratna Starr M.D. Lab Imaging Statement Laboratory radiographic studies reviewed and considered in the medical decision-making. Re-Evaluation MDM Free Text MDM Notes Free Text MDM Notes Patient signed out to me at 1600 on 04/18 pending completion of labs and imaging. Chemistry, CBC, LFTs, lipase, hCG, and UA are nonactionable. Chest x- ray and CT images were directly reviewed by me and agree with radiology interpretation of likely bilateral pneumonia and evidence of some inflammatory changes that the pancreas consistent with recent pancreatitis. CT also shows a small splenic infarct with patent splenic artery and vein. I discussed results with the patient and she agrees with discharge home at this time. She will be prescribed antibiotics as well as Toradol and Bentyl for pain control. She has been instructed to follow-up with her PCP and GI for reevaluation. Patient Discharge Departure Vital Signs/Condition Vital Signs First Documented: Result Date Time Pulse Ox 96 04/18 1420 B/P 101/72 04/18 1420 B/P Mean 81 04/18 142 O2 Delivery Room air 04/18 1420 Temp 37.2 04/18 142 Pulse 79 04/18 1420 Resp 19 04/18 1420 Last Documented: Result Date Time Pulse Ox 100 04/18 1804 B/P 126/76 04/18 1804 B/P Mean 92.6 04/18 180 Temp 37.2 04/18 180 Pulse 72 04/18 180 O2 Delivery Room air 04/18 142 Resp 19 04/18 1420 All vital signs available at the time of this entry have been reviewed. Condition Stable Clinical Impression Clinical Impression Primary Impression: Pneumonia Secondary Impressions: Pancreatitis, Splenic infarct Disposition Decision Discharge )( Discharged to Home Yes )( Time 1816 )( Date 04/18/23 Discharge/Care Plan Counseled Regarding Diagnosis, Lab results, Imaging studies, Prescriptions, Need for follow-up, When to return to ED (Auto) Prescriptions Current Visit Scripts DICYCLOMINE (BENTYL) 20 MG PO QID DICYCLOMINE (BENTYL) 20 MG PO QID #30 TABS AMOXICILLIN/CLAV K (AUGMENTIN 875/125 MG) 875 MG PO Q12H AMOXICILLIN/CLAV K (AUGMENTIN 875/125 MG) 875 MG PO Q12H #14 TABS KETOROLAC (TORADOL) 10 MG PO Q6H PRN PRN PAIN KETOROLAC (TORADOL) 10 MG PO Q6H PRN PRN PAIN #20 TABS Patient Instructions ED Pancreatitis, ED Pneumonia (Adult) Additional Instructions Please follow-up with your primary care physician as well as the GI physician below. at 1820 at 0700 RPT #:[id number] END OF REPORT HCACL
[2024-04-15] MEDS ORDERED: ONDANSETRON 4 MG/2 ML VIAL ONE (05:10)
[2024-04-15] MEDS ORDERED: MORPHINE 4 MG/ML SYR ONE ×2 (05:11→06:19)
[2024-04-15] MEDS ORDERED: NA CHLORIDE 0.9% 0 ML ONE (05:11)
[2024-04-15 05:27] LABS: Specific Gravity > 1.030 (1.005-1.030); Urine Bacteria None Seen /HPF (<20); Urine Bilirubin NEGATIVE (Negative); Urine Blood Trace (Negative); Urine Clarity Clear (Clear); Urine Color Yellow (Yellow); Urine Culture Reflex Order NOT NEEDED; Urine Glucose 4+ (Over) (Negative); Urine Ketones 1+ (Negative); Urine Microscopic Reflex YN ORDER UMIC; Urine Mucus Slight /HPF (None Seen); Urine Nitrite NEGATIVE (Negative); Urine Protein 1+ (Negative); Urine Urobilinogen Normal (Normal); Urine WBC <5 /HPF (<5)
[2024-04-15 05:53] LABS: Absolute Basophils 0.1 K/uL (0-0.5); Absolute Eosinophils 0.2 K/uL (0-0.5); Absolute Monocytes 0.6 K/uL (0.1-1.3); Basophils % 0.7 % (0-1.3); Eosinophils % 1.9 % (0-4.4); Hematocrit 36.9 % (36.0-45.0); Lymphocytes % 40.3 % (15.3-44.8); MCH 24.3 pg (27.0-35.0); MCHC 32.1 g/dL (32.0-36.0); MCV 75.8 fL (80-100); MPV 10.8 fL (7.6-11.3); Monocytes % 6.2 % (3.3-12.3); Neutrophils % 50.9 % (41.7-73.7); Nucleated Red Blood Cells % 0.4 % (0-0); RBC Red Blood Cell Count 4.87 M/uL (3.86-4.86); Red Cell Distribution Width 16.1 % (12.1-15.2)
[2024-04-15 05:54] LABS: Hemoglobin 11.8 g/dL (12.0-15.0); Platelets 265 thou/uL (152-406)
[2024-04-15 06:07] LABS: Albumin 3.5 g/dL (3.4-5.0); Albumin/Globulin Ratio 0.8 (1.1-1.8); Anion Gap 11.2 mEq/L (5.0-15.0); Bilirubin Total 0.4 mg/dL (0.2-1.0); Globulin 4.6 g/dL (2.3-3.5); Protein, Total 8.1 g/dL (6.4-8.2)
[2024-04-15 06:09] LABS: Potassium 4.2 mEq/L (3.5-5.1)
[2024-04-15] MEDS ORDERED: KETOROLAC 30 MG/ML INJ ONE (06:19)
--- NOTE | 2024-04-15 06:46 | RAD REPORT ---
EXAMINATION: CT ABDOMEN AND PELVIS WITH CONTRAST CLINICAL INDICATION: Female, 38 years old.ABD PAIN TECHNIQUE: CT abdomen and pelvis was performed, after the administration of IV contrast, as [facility]. Axial, sagittal and coronal reconstructions were obtained. One or more of the following dose reduction techniques were used: Automated exposure control, adjustment of the mA and/o r kV according to patient size, and/or iterative reconstruction. Unless otherwise specified, incidental findings do not require dedicated imaging follow-up. [id number]. COMPARISON: 07/02/2012 FINDINGS: LOWER CHEST: Circumferentially thickened distal esophagus. LIVER: Hepatic steatosis GALLBLADDER/BILE DUCT: Cholecystectomy. No biliary duct dilatation.? PANCREAS: Diffuse peripancreatic stranding. No pancreatic duct dilatation. SPLEEN: Normal size. No focal lesion. ADRENALS: Normal; no mass. KIDNEYS AND URETERS: 5 mm stone in lower pole left kidney. URINARY BLADDER: Normal contour. GASTROINTESTINAL TRACT: Status post Rod-en-Y gastric bypass. PERITONEUM: No ascites. LYMPH NODES: No lymphadenopathy. ABDOMINAL AORTA AND OTHER VESSELS: Normal caliber aorta and IVC. REPRODUCTIVE ORGANS: No pathologic process MUSCULOSKELETAL: No acute or suspicious osseous abnormality. ADDITIONAL FINDINGS: None. IMPRESSION: Acute pancreatitis. No complicating features.
--- NOTE | 2024-04-15 06:54 | EDPHYS ---
Physician Documentation [facility] Name: Rosaline Butler Age: 38 yrs Sex: Female : 1985 Arrival Date: 04/15/2024 Time: 04:44 Bed 20 Private MD: ED Physician Tj Hopson HPI: 04/15 06:11 This 38 yrs old Female presents to ER via Ambulatory with complaints of ec2 Nausea/Vomiting, Abdominal Pain. 06:11 Patient arrives today for evaluation of left-sided abdominal pain. Patient reports she ec2 has been experiencing left-sided abdominal pain along with nausea and vomiting ongoing since several hours ago. Patient reports previous history of cholecystectomy, previous history of kidney stones, frequent UTIs. No urinary complaints.. 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 - Infectious Disease History:: Denies. - Social history:: Smoking status: Patient denies any tobacco usage or history of. ROS: 06:11 Constitutional: as per hpi ec2 Exam: 06:11 Constitutional: GEN: NAD Head: atraumatic Eyes: EOMI Ears: External ears are ec2 normal. CV: regular rate LUNGS: no respiratory distress ABD: non-distended, soft, tender left abdomen, not guarding, not rigid SKIN: no evidence of rashes MSK: no evidence of trauma Vital Signs: 04:55 BP 167 / 96; Pulse 73; Resp 18; Temp 99.3; Pulse Ox 99% ; Weight 99.34 kg; Height 5 ft. cp4 5 in. ; Pain 10/10; 06:40 BP 155 / 79; Pulse 77; Resp 18; Pulse Ox 97% ; cp4 07:06 BP 152 / 85; Pulse 66; Resp 16 S; Pulse Ox 96% on R/A; kc6 08:38 BP 128 / 90; Pulse 67; Resp 18 S; Pulse Ox 99% on R/A; kc6 04:55 Body Mass Index 36.44 (99.34 kg, 165.1 cm) cp4 04:55 Pain Scale: Adult cp4 MDM: 04:53 Patient medically screened. ec2 06:11 Data reviewed: vital signs. ED course: Patient arrives today for evaluation of ec2 abdominal pain. Examination remarkable for abdominal findings as above. Will obtain lab work, urine studies, CT imaging. Differential includes diverticulitis, urinary tract infection, pyelonephritis, ureteral stone.. 06:14 ED course: Metabolic profile is reassuring. Lipase is elevated at 656. . ec2 06:50 ED course: Patient with uncomplicated pancreatitis, will admit for pain management. ec2 Discussed case with hospitalist, pending admission.. 04/15 04:47 Order name: CBC with Diff; Complete Time: 06:09 ec2 04/15 04:47 Order name: CMP; Complete Time: 06:14 ec2 04/15 04:47 Order name: Lipase; Complete Time: 06:14 ec2 04/15 04:47 Order name: Test, Urine; Complete Time: 06:09 ec2 04/15 04:47 Order name: Urinalysis w/ reflexes; Complete Time: 06:09 ec2 04/15 07:35 Order name: Hemoglobin A1c EDMS 04/15 07:35 Order name: CBC with Automated Diff EDMS 04/15 07:35 Order name: CBC with Automated Diff EDMS 04/15 07:35 Order name: CBC with Automated Diff EDMS 04/15 07:35 Order name: CBC with Automated Diff EDMS 04/15 07:35 Order name: CBC with Automated Diff EDMS 04/15 07:35 Order name: CBC with Automated Diff EDMS 04/15 07:35 Order name: CBC with Automated Diff EDMS 04/15 07:35 Order name: CBC with Automated Diff EDMS 04/15 07:35 Order name: Comprehensive Metabolic Panel EDMS 04/15 07:35 Order name: Comprehensive Metabolic Panel EDMS 04/15 07:35 Order name: Comprehensive Metabolic Panel EDMS 04/15 07:35 Order name: Comprehensive Metabolic Panel EDMS 04/15 07:35 Order name: Comprehensive Metabolic Panel EDMS 04/15 07:35 Order name: Comprehensive Metabolic Panel EDMS 04/15 07:35 Order name: Comprehensive Metabolic Panel EDMS 04/15 07:35 Order name: Comprehensive Metabolic Panel EDMS 04/15 07:35 Order name: Lipase EDMS 04/15 07:35 Order name: Lipase EDMS 04/15 07:35 Order name: Lipase EDMS 04/15 07:35 Order name: Lipase EDMS 04/15 07:35 Order name: Lipase EDMS 04/15 07:35 Order name: Lipase EDMS 04/15 07:35 Order name: Lipase EDMS 04/15 07:35 Order name: Lipase EDMS 04/15 07:35 Order name: Lipid Profile EDMS 04/15 07:35 Order name: Lipid Profile EDMS 04/15 07:35 Order name: Magnesium EDMS 04/15 07:35 Order name: Magnesium EDMS 04/15 07:35 Order name: Magnesium EDMS 04/15 07:35 Order name: Magnesium EDMS 04/15 07:35 Order name: Magnesium EDMS 04/15 07:35 Order name: Magnesium EDMS 04/15 07:35 Order name: Magnesium EDMS 04/15 07:35 Order name: Magnesium EDMS 04/15 07:35 Order name: Phosphorus EDMS 04/15 07:35 Order name: Phosphorus EDMS 04/15 07:35 Order name: Phosphorus EDMS 04/15 07:35 Order name: Phosphorus EDMS 04/15 07:35 Order name: Phosphorus EDMS 04/15 07:35 Order name: Phosphorus EDMS 04/15 07:35 Order name: Phosphorus EDMS 04/15 07:35 Order name: Phosphorus EDMS 04/15 05:26 Order name: CT Abd/Pelvis - IV Contrast Only; Complete Time: 06:49 ec2 04/15 07:37 Order name: EKG Electrocardiogram EDMS 04/15 04:47 Order name: IV Saline Lock; Complete Time: 05:07 ec2 04/15 04:47 Order name: Labs collected and sent; Complete Time: 05:07 ec2 Administered Medications: 05:14 Drug: NS 0.9% IV 1000 ml IV at 1 bolus Per protocol; 1000 mL bolus Route: IV; Rate: 1 cp4 bolus; Site: right antecubital; 06:26 Follow up: Response: No adverse reaction; IV Status: Completed infusion cp4 05:14 Drug: Ondansetron IVP 4 mg IVP once; over 2 minutes Route: IVP; Site: right antecubital;cp4 05:40 Follow up: Response: No adverse reaction cp4 05:14 Drug: morphine IVP or IV 4 mg IVP once over 4 mins Route: IVP; Infused Over: 4 mins; cp4 Site: right antecubital; 05:40 Follow up: Response: No adverse reaction; Pain is decreased cp4 06:23 Drug: Ketorolac IVP 15 mg IVP once Route: IVP; Site: right antecubital; cp4 06:39 Follow up: Response: No adverse reaction; Pain is decreased cp4 06:23 Drug: morphine IVP or IV 8 mg IVP once over 4 mins Route: IVP; Infused Over: 4 mins; cp4 Site: right antecubital; 06:38 Follow up: Response: No adverse reaction; Pain is decreased cp4 Disposition Summary: 04/15/24 06:53 Hospitalization Ordered Notes: Hospitalization Status: Inpatient Admission ec2 Provider: Lauren Anand ec2 Location: Telemetry/MedSurg (Inpatient) ec2 Condition: Stable ec2 Problem: new ec2 Symptoms: have improved ec2 Bed/Room Type: Standard ec2 Room Assignment: 407(04/15/24 07:45) bd Diagnosis - Acute pancreatitis without necrosis or infection, unspecified ec2 Forms: - Medication Reconciliation Form ec2 - SBAR form ec2 - Leadership Thank You Letter ec2 Signatures: Dispatcher [employer] Nohemy Giang Edwin, MD MD ec2 Emani Ayala cp4 Corrections: (The following items were deleted from the chart) 07:45 06:53 ec2 bd
--- NOTE | 2024-04-15 06:54 | ER ---
Nurse's Notes [facility] Name: Rosaline Butler Age: 38 yrs Sex: Female : 1985 Arrival Date: 04/15/2024 Time: 04:44 Bed 20 Private MD: Diagnosis: Acute pancreatitis without necrosis or infection, unspecified Presentation: 04/15 04:55 Chief complaint: Patient states: left sided abdominal pain that started yesterday. cp4 Reports nausea, vomiting, and diarrhea. 04:55 Coronavirus screen: Client denies travel out of the [place] in the last 14 days. At this cp4 time, the client does not indicate any symptoms associated with coronavirus-19. Ebola Screen: Patient negative for fever greater than or equal to 101.5 degrees Fahrenheit, and additional compatible Ebola Virus Disease symptoms Patient denies exposure to infectious person. Patient denies travel to an Ebola-affected area in the 21 days before illness onset. No symptoms or risks identified at this time. Initial Sepsis Screen: Does the patient meet any 2 criteria? No. Patient's initial sepsis screen is negative. Does the patient have a suspected source of infection? No. Patient's initial sepsis screen is negative. Risk Assessment: Do you want to hurt yourself or someone else? Patient reports no desire to harm self or others. Onset of symptoms was April 14, 2024. 04:55 Method Of Arrival: Ambulatory 4 04:55 Acuity: NEIL 3 cp4 Triage Assessment: 05:30 General: Appears in no apparent distress. uncomfortable, Behavior is calm, cooperative, cp4 appropriate for age. Pain: Complains of pain in abdomen Pain does not radiate. Pain currently is 10 out of 10 on a pain scale. EENT: No signs and/or symptoms were reported regarding the EENT system. Neuro: Level of Consciousness is awake, alert, obeys commands, Oriented to person, place, time, situation. Cardiovascular: Patient's skin is warm and dry. Respiratory: Airway is patent Respiratory effort is even, unlabored. GI: Abdomen is round non-distended, Bowel sounds present X 4 quads. Abdomen is tender to palpation in left upper quadrant and left lower quadrant Reports diarrhea, nausea, vomiting. : No signs and/or symptoms were reported regarding the genitourinary system. Derm: No signs and/or symptoms reported regarding the dermatologic system. Musculoskeletal: No signs and/or symptoms reported regarding the musculoskeletal system. TELEPHONE CLERK: 05:30 Not cp4 Historical: - Allergies: 05:30 No Known Allergies; cp4 - PMHx: 05:30 Diabetes - NIDDM; cp4 - Immunization history:: Adult Immunizations up to date. - Infectious Disease History:: Denies. - Social history:: Smoking status: Patient denies any tobacco usage or history of. Screenin:32 [facility] ED Fall Risk Assessment (Adult) History of falling in the last 3 months, cp4 including since admission No falls in past 3 months (0 pts) Confusion or Disorientation No (0 pts) Intoxicated or Sedated No (0 pts) Impaired Gait No (0 pts) Mobility Assist Device Used No (0 pt) Altered Elimination No (0 pt) Score/Fall Risk Level 0 - 2 = Low Risk Oriented to surroundings, Maintained a safe environment, Assessed \T\ reinforced patient's understanding of fall precautions, Hourly rounding (assess needs \T\ fall precautionary measures) done. Abuse screen: Denies threats or abuse. Nutritional screening: No deficits noted. Tuberculosis screening: No symptoms or risk factors identified. Assessment: 05:32 Reassessment: No changes from previously documented assessment. cp4 06:54 Reassessment: Patient appears in no apparent distress at this time. Patient and/or cp4 family updated on plan of care and expected duration. Pain level reassessed. Patient is alert, oriented x 3, equal unlabored respirations, skin warm/dry/pink. 07:05 Reassessment: Patient appears in no apparent distress at this time. No changes from kc6 previously documented assessment. Patient and/or family updated on plan of care and expected duration. Pain level reassessed. Patient is alert, oriented x 3, equal unlabored respirations, skin warm/dry/pink. Patient states feeling better. Patient states symptoms have improved. 08:38 Reassessment: Patient appears in no apparent distress at this time. No changes from kc6 previously documented assessment. Patient and/or family updated on plan of care and expected duration. Pain level reassessed. Patient is alert, oriented x 3, equal unlabored respirations, skin warm/dry/pink. Vital Signs: 04:55 BP 167 / 96; Pulse 73; Resp 18; Temp 99.3; Pulse Ox 99% ; Weight 99.34 kg; Height 5 ft. cp4 5 in. ; Pain 10/10; 06:40 BP 155 / 79; Pulse 77; Resp 18; Pulse Ox 97% ; cp4 07:06 BP 152 / 85; Pulse 66; Resp 16 S; Pulse Ox 96% on R/A; kc6 08:38 BP 128 / 90; Pulse 67; Resp 18 S; Pulse Ox 99% on R/A; kc6 04:55 Body Mass Index 36.44 (99.34 kg, 165.1 cm) cp4 04:55 Pain Scale: Adult cp4 ED Course: 04:45 Patient arrived in ED. ec2 04:45 Tj Hopson MD is Attending Physician. ec2 05:06 Emani Ayala is Primary Nurse. cp4 05:30 Triage completed. cp4 05:30 Arm band placed on right wrist. Patient placed in waiting room. cp4 05:32 Bed in low position. Call light in reach. Side rails up X 1. Provided Education on: cp4 abdominal pain. 05:32 No provider procedures requiring assistance completed. Initial lab(s) drawn, by in, cp4 sent to lab. Urine collected: clean catch specimen, cloudy. Inserted saline lock: 20 gauge in right antecubital area, using aseptic technique. Blood collected. Flushed with 10 mL NS. 06:43 CT Abd/Pelvis - IV Contrast Only In Process Unspecified. EDMS 06:53 Lauren Anand MD is Hospitalizing Provider. ec2 07:05 Report received from Alison Ayala RN. Pulse ox on. NIBP on. Door closed. Noise kc6 minimized. Lights dimmed. Warm blanket given. Pillow given. Diet: Patient is NPO. 08:39 Patient admitted, IV remains in place. kc6 Administered Medications: 05:14 Drug: NS 0.9% IV 1000 ml IV at 1 bolus Per protocol; 1000 mL bolus Route: IV; Rate: 1 cp4 bolus; Site: right antecubital; 06:26 Follow up: Response: No adverse reaction; IV Status: Completed infusion cp4 05:14 Drug: Ondansetron IVP 4 mg IVP once; over 2 minutes Route: IVP; Site: right antecubital;cp4 05:40 Follow up: Response: No adverse reaction cp4 05:14 Drug: morphine IVP or IV 4 mg IVP once over 4 mins Route: IVP; Infused Over: 4 mins; cp4 Site: right antecubital; 05:40 Follow up: Response: No adverse reaction; Pain is decreased cp4 06:23 Drug: Ketorolac IVP 15 mg IVP once Route: IVP; Site: right antecubital; cp4 06:39 Follow up: Response: No adverse reaction; Pain is decreased cp4 06:23 Drug: morphine IVP or IV 8 mg IVP once over 4 mins Route: IVP; Infused Over: 4 mins; cp4 Site: right antecubital; 06:38 Follow up: Response: No adverse reaction; Pain is decreased cp4 Medication: 05:32 VIS not applicable for this client. cp4 Outcome: 06:53 Decision to Hospitalize by Provider. ec2 08:38 Admitted to Med/surg accompanied by tech, via wheelchair, room 407, with chart, kc6 08:38 Condition: good 08:38 Instructed on the need for admit, 08:39 Patient left the ED. kc6 Signatures: Dispatcher [employer] Sharifa Tenorio RN RN kc6 Tj Hopson MD MD ec2 Emani Ayala cp4
--- NOTE | 2024-04-15 07:18 | P.HP ---
Certification for Inpatient Patient admitted to: Inpatient With expected LOS: >2 Midnights Patient will require the following post-hospital care: None Practitioner: I am a practitioner with admitting privileges, knowledge of patient current condition, hospital course, and medical plan of care. Services: Services provided to patient in accordance with Admission requirements found in Title 42 Section 412.3 of the Code of Federal Regulations <Chelsea Hernandez - Last Filed: 04/15/24 17:31> Patient History Date of Service: 04/15/24 Reason for admission: Acute Pancreatitis History of Present Illness: Rosaline Butler is a 38 year old female with Pmhx Diabetes Mellitus- NIDDM, pancreatitis, and hypertriglyceridemia who presents to the ED with chief complaint of left sided abdominal pain that started Monday morning. She reports the first episode of pancreatitis was last year in April. At that time hypertriglyceridemia was discovered and she reports being compliant with fenofibrate. Laboratory evaluation lipase 656, sodium 133, serum glucose 280. CT abd/pelvis reports "Acute pancreatitis. No complicating features." Triglyceride level > 4000. Initial vitals BP 167 / 96; Pulse 73; Resp 18; Temp 99.3; Pulse Ox 99% Rosaline will be admitted to hospitalist service for further treatment of Acute bateman creatitis. - Past Medical/Surgical History -: DM-NIDDM -: pancreatitis -: Hypertriglyceridemia - Family History Father -: Heart disease Mother -: Diabetes - Social History Smoking Status: Never smoker Alcohol use: No CD- Drugs: No <Chelsea Hernandez - Last Filed: 04/15/24 17:31> Date of Service: 04/15/24 <jasvir nickerson - Last Filed: 04/15/24 18:15> Allergies No Known Allergies Allergy (Unverified 07/02/12 01:32) Home Medications: Fenofibrate 1 tab PO DAILY 04/15/24 Metformin HCl 500 mg PO BID 04/15/24 glipiZIDE [Glipizide] 5 mg PO DAILY 04/15/24 Review of Systems Gastrointestinal: Nausea, Vomiting, Abdominal Pain (Left upper quadrant) <Chelsea Hernandez - Last Filed: 04/15/24 17:31> Physical Examination - Physical Exam General: Alert, In no apparent distress, Oriented x3 HEENT: Atraumatic, Normocephalic, PERRLA Neck: Supple, JVD not distended Respiratory: Clear to auscultation bilaterally, Normal air movement Cardiovascular: Normal pulses, Regular rate/rhythm, Normal S1 S2 Capillary refill: <2 Seconds Gastrointestinal: Soft and benign, Tenderness (left upper quadrant) - Studies Laboratory Data (last 24 hrs) 04/15/24 04/15/24 05:08 05:08 WBC 9.80 Hgb 11.8 L Hct 36.9 Plt Count 265 Sodium 133 L Potassium 4.2 BUN 9 Creatinine 0.63 Glucose 280 H Total Bilirubin 0.4 AST 57 H ALT 52 Alkaline Phosphatase 101 Lipase 656 H <Chelsea Hernandez - Last Filed: 04/15/24 17:31> - Studies Laboratory Data (last 24 hrs) 04/15/24 04/15/24 04/15/24 05:08 05:08 05:08 WBC 9.80 Hgb 11.8 L Hct 36.9 Plt Count 265 Sodium 133 L Potassium 4.2 BUN 9 Creatinine 0.63 Glucose 280 H Total Bilirubin 0.4 AST 57 H ALT 52 Alkaline Phosphatase 101 Triglycerides > 4000 H Cholesterol 363 H LDL Cholesterol Direct 69 L HDL Cholesterol 40 Cholesterol/HDL Ratio 9.08 Lipase 656 H <jasvir nickerson - Last Filed: 04/15/24 18:15> Assessment and Plan - Plan Assessment and plan Acute pancreatitis 2/2 hypertriglyceridemia -CT abd/pelvis reports "Acute pancreatitis. No complicating features." -Triglyceride > 4000 -insulin gtt at 5 units/hr, titrate to Q4h triglyceride levels -Q4h BMP/triglyceride levels -Q1h accucheck -Fenofibrate 164 mg daily -Aggressive IVF, D5NS 200 ml/hr -pain control -NPO -Lipid panel:Triglyceride > 4000, Cholesterol 363, LDL 69, HDL 40 -initial Lipase 656, T bili 0.4, trend daily Transaminitis -AST 57 -IV fluids -Monitor in a.m. labs Diabetes mellitus -NIDDM - Serum glucose 280 - insulin gtt - Q1h accucheck -hold SSI while on drip -A1C 11 5mm Left kidney stone History of Rod-en-Y gastric bypass -Follow up outpatient DVT ppx lovenox full code LOS 2-3 days Discharge Plan: Home Plan to discharge in: 72 Hours - Advance Directives Does patient have a Living Will: No Does patient have a Durable POA for Healthcare: No <Chelsea Hernandez - Last Filed: 04/15/24 17:31> - Plan Patient seen and examined, plan of care discussed with Ms. Hernandez. Acute pancreatitis secondary to hypertriglyceridemia. Diabetes mellitus type 2 with hyperglycemia-uncontrolled. Admit to ICU Start insulin drip Monitor triglyceride levels Ice chips and sips Antiemetics Supportive measures with IV opioids as needed Aggressive IV hydration. Monitor lipase level <jasvir nickerson - Last Filed: 04/15/24 18:15>
[2024-04-15 08:43] LABS: HDL Cholesterol 40 mg/dL (40-60)
[2024-04-15 08:56] LABS: LDL, Direct 69 mg/dL (100-129)
[2024-04-15] MEDS ORDERED: GLUCAGON 1 MG/VIAL IM PRN (09:21)
[2024-04-15] MEDS ORDERED: D50W 25 GM/50 ML SYRINGE IV PRN (09:21)
[2024-04-15] MEDS: NA CHLORIDE 0.9% 1,000 ML IV SCH (09:28)
[2024-04-15] MEDS: ENOXAPARIN 40 MG/0.4 ML SQ SCH (09:28)
[2024-04-15] MEDS: INSULIN REGULAR (HUMAN) 100 UNIT/ML SQ SCH (09:29)
[2024-04-15] MEDS ORDERED: D10W 125 ML IV PRN (09:31)
[2024-04-15] MEDS: INSULIN REGULAR, HUMAN 100 UNIT in NA CHLORIDE 0.9% 100 ML IV SCH (10:13)
[2024-04-15] MEDS: D5 0.9 NS 1,000 ML IV SCH (10:13)
[2024-04-15] MEDS: HYDROMORPHONE HCL 1 MG/ML INJ IV PRN (10:14)
[2024-04-15] MEDS: ONDANSETRON 4 MG/2 ML VIAL IV PRN (11:41)
[2024-04-15 13:56] LABS: Anion Gap 9.3 mEq/L (5.0-15.0)
[2024-04-15 13:58] LABS: Potassium 4.3 mEq/L (3.5-5.1)
[2024-04-15] MEDS: FENOFIBRATE 160 MG TAB PO SCH (17:09)
[2024-04-15 18:00] LABS: Anion Gap 9.3 mEq/L (5.0-15.0)
[2024-04-15 18:01] LABS: Potassium 4.3 mEq/L (3.5-5.1)
[2024-04-15] MEDS: PROMETHAZINE INJ 25 MG/ML AMP IV PRN (18:20)
[2024-04-15 22:17] LABS: Anion Gap 13.1 mEq/L (5.0-15.0)
[2024-04-15 22:19] LABS: Potassium 4.1 mEq/L (3.5-5.1)
[2024-04-16 01:52] LABS: Anion Gap 9.7 mEq/L (5.0-15.0)
[2024-04-16 01:55] LABS: Potassium 3.7 mEq/L (3.5-5.1)
[2024-04-16] MEDS: NA CHLORIDE 0.9% 100 ML ONE (02:18)
[2024-04-16] MEDS: KCL 20 MEQ/100 mL IVPB 20 MEQ/100 ML BAG IV ONE (02:18)
[2024-04-16 05:27] LABS: Absolute Basophils 0.2 K/uL (0-0.5); Absolute Eosinophils 0.1 K/uL (0-0.5); Absolute Lymphocytes (CBC) 1.9 K/uL (0.7-4.9); Absolute Monocytes 0.6 K/uL (0.1-1.3); Basophils % 2.4 % (0-1.3); Eosinophils % 0.9 % (0-4.4); Hematocrit 34.2 % (36.0-45.0); Hemoglobin 11.4 g/dL (12.0-15.0); Lymphocytes % 21.8 % (15.3-44.8); MCH 25.5 pg (27.0-35.0); MCHC 33.3 g/dL (32.0-36.0); MCV 76.6 fL (80-100); MPV 9.7 fL (7.6-11.3); Monocytes % 6.5 % (3.3-12.3); Neutrophils % 68.4 % (41.7-73.7); Platelets 203 thou/uL (152-406); RBC Red Blood Cell Count 4.46 M/uL (3.86-4.86); Red Cell Distribution Width 16.3 % (12.1-15.2)
[2024-04-16 06:38] LABS: Albumin 2.6 g/dL (3.4-5.0); Albumin/Globulin Ratio 0.7 (1.1-1.8); Anion Gap 16.9 mEq/L (5.0-15.0); Bilirubin Total 0.6 mg/dL (0.2-1.0); Phosphorus 1.6 mg/dL (2.5-4.9); Protein, Total 6.6 g/dL (6.4-8.2)
[2024-04-16 06:39] LABS: Magnesium 1.7 mg/dL (1.6-2.4); Potassium 3.9 mEq/L (3.5-5.1)
[2024-04-16 06:59] LABS: Band Neutrophils 3 % (0-1); Differential Total Cells Count 100; Eosinophils 2 % (0-3); Lymphocytes 21 % (15-42); Monocytes 7 % (0-10); Segmented Neutrophils 67 % (40-80)
[2024-04-16 07:00] LABS: Blood Morphology Comment NOT SEEN (NOT SEEN); Platelet Estimate ADEQ
[2024-04-16] MEDS: MAGNESIUM SULFATE 1 gm IVPB 1 GM/100 ML BAG IV ONE (08:35)
[2024-04-16] MEDS: POTASSIUM PHOS IN 0.9 % NACL 15 MMOL/250 ML BAG IV ONE ×2 (08:35→21:28)
[2024-04-16 09:45] LABS: Anion Gap 9.8 mEq/L (5.0-15.0)
[2024-04-16 09:46] LABS: Potassium 3.8 mEq/L (3.5-5.1)
--- NOTE | 2024-04-16 12:05 | P.PN ---
Date of Service: 04/16/24 Subjective: Still having significant abdominal pain, nausea Vomited overnight No other acute events overnight ROS: 10 point ROS as noted above, otherwise negative Physical exam GEN: Alert, oriented, NAD HEENT: Normal conjunctiva, sclera anicteric CV: Regular rate and rhythm, no edema Pulm: Nonlabored respirations on room air ABD: Soft, mild epigastric tenderness, nondistended MSK: No joint tenderness Integumentary: No rashes Neuro: Normal speech, normal affect Vitals reviewed Assessment and plan Acute pancreatitis second to hypertriglyceridemia -CT abd/pelvis reports "Acute pancreatitis. No complicating features." -Trend triglycerides, continue insulin drip until triglycerides less than 500 -Check triglyceride level every 12 hours -Q1h accucheck -Fenofibrate 160 mg daily -Aggressive IVF, D5NS 200 ml/hr -pain control -NPO -Lipid panel: Initial triglyceride > 4000, Cholesterol 363, LDL 69, HDL 40 -Monitor CMP, lipase daily Transaminitis -AST 57 -IV fluids -Monitor with a.m. labs Diabetes mellitus -NIDDM with hyperglycemia -Serum glucose 280 -insulin gtt -Q1h accucheck -hold SSI while on drip -A1C 11 5mm Left kidney stone History of Rod-en-Y gastric bypass -Follow up outpatient DVT ppx lovenox full code LOS 2-3 days
[2024-04-16] MEDS: ACETAMINOPHEN 325 MG TABLET PO PRN (16:44)
[2024-04-16 20:20] LABS: Magnesium 2.1 mg/dL (1.6-2.4)
[2024-04-16 20:21] LABS: Phosphorus 1.5 mg/dL (2.5-4.9)
[2024-04-16] MEDS: SODIUM PHOSPHATE 15 MM in NA CHLORIDE 0.9% 250 ML IV ONE (20:40)
[2024-04-17] MEDS: INSULIN REGULAR, HUMAN 100 UNIT in NA CHLORIDE 0.9% 100 ML IV SCH (01:42)
[2024-04-17 04:05] VITALS: BMI 36.7
[2024-04-17 04:33] LABS: Absolute Basophils 0.1 K/uL (0-0.5); Absolute Eosinophils 0.2 K/uL (0-0.5); Absolute Monocytes 0.8 K/uL (0.1-1.3); Eosinophils % 2.2 % (0-4.4); Hemoglobin 9.8 g/dL (12.0-15.0); MCH 24.3 pg (27.0-35.0); MCHC 31.7 g/dL (32.0-36.0); MCV 76.6 fL (80-100); MPV 9.6 fL (7.6-11.3); Monocytes % 8.6 % (3.3-12.3); Neutrophils % 66.2 % (41.7-73.7); Platelets 164 thou/uL (152-406); RBC Red Blood Cell Count 4.04 M/uL (3.86-4.86); Red Cell Distribution Width 16.8 % (12.1-15.2)
[2024-04-17 04:41] LABS: ALT/SGPT 22 U/L (13-56); AST/SGOT 13 U/L (15-37); Albumin 2.4 g/dL (3.4-5.0); Albumin/Globulin Ratio 0.6 (1.1-1.8); Alkaline Phosphatase 50 U/L (45-117); Anion Gap 7.4 mEq/L (5.0-15.0); Bicarbonate 24 mEq/L (21-32); Bilirubin Total 0.5 mg/dL (0.2-1.0); Glomerular Filtration Rate 124 ml/min (=/>90); Glucose Level 204 mg/dL (74-106); Lipase 72 U/L (13-75); Potassium 3.4 mEq/L (3.5-5.1); Protein, Total 6.4 g/dL (6.4-8.2); Sodium Level 138 mEq/L (136-145)
[2024-04-17 04:48] LABS: BUN Blood Urea Nitrogen < 3 mg/dL (7-18)
[2024-04-17 04:49] LABS: Phosphorus 1.4 mg/dL (2.5-4.9)
[2024-04-17] MEDS: POTASSIUM PHOS IN 0.9 % NACL 15 MMOL/250 ML BAG IV ONE (06:00)
[2024-04-17] MEDS: KCL 20 MEQ/100 mL IVPB 20 MEQ/100 ML BAG IV ONE (06:04)
[2024-04-17] MEDS: Ringers Lactate 1,000 ML IV SCH (07:40)
--- NOTE | 2024-04-17 09:03 | P.PN ---
Date of Service: 04/17/24 Subjective: Still having significant abdominal pain, nausea Vomited overnight x1 No other acute events overnight Able to come off insulin drip Possible downgrade ICU this afternoon ROS: 10 point ROS as noted above, otherwise negative Physical exam GEN: Alert, oriented, NAD HEENT: Normal conjunctiva, sclera anicteric CV: Regular rate and rhythm, no edema Pulm: Nonlabored respirations on room air ABD: Soft, mild epigastric tenderness, nondistended MSK: No joint tenderness Integumentary: No rashes Neuro: Normal speech, normal affect Vitals reviewed Assessment and plan Acute pancreatitis second to hypertriglyceridemia -CT abd/pelvis reports "Acute pancreatitis. No complicating features." -Fenofibrate 160 mg daily -Continue IVF -pain control -NPO ok for sips of water and ice chips -Monitor CMP, lipase daily -off D5/insulin drip fluids switched to LR Transaminitis -IV fluids -Monitor with a.m. labs Diabetes mellitus -NIDDM with hyperglycemia -q6h accucheck with SSI -A1C 11 5mm Left kidney stone History of Rod-en-Y gastric bypass -Follow up outpatient DVT ppx lovenox full code LOS 2-3 days
[2024-04-17] MEDS: INSULIN REGULAR (HUMAN) 100 UNIT/ML SQ SCH (12:00)
[2024-04-18 00:09] VITALS: O2SAT 94
[2024-04-18 04:49] LABS: Absolute Eosinophils 0.2 K/uL (0-0.5); Absolute Lymphocytes (CBC) 2.4 K/uL (0.7-4.9); Absolute Monocytes 0.8 K/uL (0.1-1.3); Absolute Neutrophil 5.4 K/uL (1.8-8.0); Basophils % 0.5 % (0-1.3); Eosinophils % 2.5 % (0-4.4); Hematocrit 28.8 % (36.0-45.0); Hemoglobin 9.3 g/dL (12.0-15.0); Lymphocytes % 27.5 % (15.3-44.8); MCH 24.6 pg (27.0-35.0); MCHC 32.4 g/dL (32.0-36.0); MCV 76.1 fL (80-100); Monocytes % 8.8 % (3.3-12.3); Neutrophils % 60.7 % (41.7-73.7); Nucleated Red Blood Cells % 0.1 % (0-0); Platelets 179 thou/uL (152-406); RBC Red Blood Cell Count 3.79 M/uL (3.86-4.86); Red Cell Distribution Width 16.6 % (12.1-15.2)
[2024-04-18 04:58] LABS: Albumin 2.3 g/dL (3.4-5.0); Albumin/Globulin Ratio 0.6 (1.1-1.8); Anion Gap 8.7 mEq/L (5.0-15.0); Bilirubin Total 0.6 mg/dL (0.2-1.0); Globulin 4.1 g/dL (2.3-3.5); Phosphorus 2.2 mg/dL (2.5-4.9); Potassium 3.7 mEq/L (3.5-5.1); Protein, Total 6.4 g/dL (6.4-8.2)
[2024-04-18] MEDS ORDERED: HYDROCODONE/APAP 5/325 MG TAB PO PRN (06:32)
[2024-04-18] MEDS ORDERED: HYDROMORPHONE HCL 1 MG/ML INJ IV PRN (06:33)
[2024-04-18] MEDS ORDERED: POTASSIUM PHOS IN 0.9 % NACL 15 MMOL/250 ML BAG IV ONE (08:00)
[2024-04-18] MEDS: POTASSIUM PHOS IN 0.9 % NACL 15 MMOL/250 ML BAG IV ONE (08:57)
[2024-04-18 14:22] VITALS: BP 133/74; TEMP 97
--- NOTE | 2024-04-18 16:03 | P.DS ---
Admission Date: 04/15/24 Discharge Date: 04/18/24 Disposition: ROUTINE DISCHARGE Discharge Condition: GOOD Reason for Admission: Acute Pancreatitis Brief History of Present Illness: Rosaline Butler is a 38 year old female with Pmhx Diabetes Mellitus- NIDDM, pancreatitis, and hypertriglyceridemia who presents to the ED with chief complaint of left sided abdominal pain that started Monday morning. She reports the first episode of pancreatitis was last year in April. At that time hypertriglyceridemia was discovered and she reports being compliant with fenofibrate. Laboratory evaluation lipase 656, sodium 133, serum glucose 280. CT abd/pelvis reports "Acute pancreatitis. No complicating features." Triglyceride level > 4000. Hospital Course: Assessment Acute pancreatitis second to hypertriglyceridemia Transaminitis Diabetes mellitus -NIDDM with hyperglycemia 5mm Left kidney stone History of Rod-en-Y gastric bypass Patient was admitted to the hospital for acute pancreatitis likely secondary to hypertriglyceridemia. On admission patient's triglycerides were greater than 4000, cholesterol 363, LDL 69, HDL 40, lipase 656 and glucose was 280. CT showed acute pancreatitis with no complicating features. Her A1c was also 11 the following day. She was treated initially with an insulin drip for the severe hypertriglyceridemia, triglycerides improved to 460 and patient was able to come off of the insulin drip subsequently managed with IV fluids, as needed pain medications and antiemetics. She is feeling much better today pain is much better controlled and she is tolerating a full liquid diet, stable for discharge and outpatient follow-up. Please continue taking your home medications including your fenofibrate, adding a fish oil supplement daily with your elevated triglyceride levels Follow-up with your primary care doctor for further adjustment of your medications including your diabetes medications as your A1c was 11 Vital Signs/Physical Exam: Temp Pulse Resp BP Pulse Ox 97.0 F 74 28 H 133/74 97 04/18/24 12:00 04/18/24 12:00 04/18/24 12:00 04/18/24 12:00 04/18/24 12:00 General: Alert, In no apparent distress, Oriented x3 HEENT: Atraumatic, PERRLA Neck: Supple, JVD not distended Respiratory: Clear to auscultation bilaterally, Normal air movement Cardiovascular: Regular rate/rhythm, Normal S1 S2 Gastrointestinal: Normal bowel sounds, No tenderness Musculoskeletal: No tenderness Integumentary: No rashes Neurological: Normal speech, Normal tone, Normal affect Laboratory Data at Discharge: WBC 8.90 thou/uL (4.3-10.9) 04/18/24 04:01 Hgb 9.3 g/dL (12.0-15.0) L 04/18/24 04:01 Hct 28.8 % (36.0-45.0) L 04/18/24 04:01 Plt Count 179 thou/uL (152-406) 04/18/24 04:01 Sodium 137 mEq/L (136-145) 04/18/24 04:01 Potassium 3.7 mEq/L (3.5-5.1) 04/18/24 04:01 BUN 5 mg/dL (7-18) L 04/18/24 04:01 Creatinine 0.42 mg/dL (0.55-1.02) L 04/18/24 04:01 Glucose 177 mg/dL (74-106) H 04/18/24 04:01 Phosphorus 2.2 mg/dL (2.5-4.9) L 04/18/24 04:01 Magnesium 2.0 mg/dL (1.6-2.4) 04/18/24 04:01 Total Bilirubin 0.6 mg/dL (0.2-1.0) 04/18/24 04:01 AST 11 U/L (15-37) L 04/18/24 04:01 ALT 18 U/L (13-56) 04/18/24 04:01 Alkaline Phosphatase 48 U/L (45-117) 04/18/24 04:01 Triglycerides 460 mg/dL (<150) H 04/17/24 04:12 Cholesterol 363 mg/dL (<200) H 04/15/24 05:08 LDL Cholesterol Direct 69 mg/dL (100-129) L 04/15/24 05:08 HDL Cholesterol 40 mg/dL (40-60) 04/15/24 05:08 Cholesterol/HDL Ratio 9.08 04/15/24 05:08 Lipase 51 U/L (13-75) 04/18/24 04:01 Home Medications: Fenofibrate 1 tab PO DAILY 04/15/24 Metformin HCl 500 mg PO BID 04/15/24 glipiZIDE [Glipizide] 5 mg PO DAILY 04/15/24 Hydrocodone 5/APAP 325 [[place] 5/325] 1 tab PO Q8H PRN #10 tab 04/18/24 New Medications: Hydrocodone 5/APAP 325 [[place] 5/325] 1 tab PO Q8H PRN #10 tab PRN Reason: Pain Physician Discharge Instructions: Patient was admitted to the hospital for acute pancreatitis likely secondary to hypertriglyceridemia. On admission patient's triglycerides were greater than 4000, cholesterol 363, LDL 69, HDL 40, lipase 656 and glucose was 280. CT showed acute pancreatitis with no complicating features. Her A1c was also 11 the following day. She was treated initially with an insulin drip for the severe hypertriglyceridemia, triglycerides improved to 460 and patient was able to come off of the insulin drip subsequently managed with IV fluids, as needed pain medications and antiemetics. She is feeling much better today pain is much better controlled and she is tolerating a full liquid diet, stable for discharge and outpatient follow-up. Please continue taking your home medications including your fenofibrate, adding a fish oil supplement daily with your elevated triglyceride levels Follow-up with your primary care doctor for further adjustment of your medications including your diabetes medications as your A1c was 11 Diet: [place] Activity: Ad isabella Followup: Sharon Yin MD [Primary Care Provider] - 1 Week Time spent managing pt's care (in minutes): 41
[2024-04-18] MEDS ORDERED: INSULIN REGULAR (HUMAN) 100 UNIT/ML SQ SCH (16:30)
== END 2024-04-18 15:59 | disposition home or self-care (01) | DRG 440 ==
LOC: ER 04:44 → ERHOLD 07:28 → 4TH 08:06 → 3RD-ICU 09:59 → 2ND 04-17 15:02
PROVIDERS: ADMIT Nurse Practitioner; ATTEND Hospitalist
DX: K85.90 Acute pancreatitis without necrosis or infection, unspecified (principal); E78.1 Pure hyperglyceridemia; E11.65 Type 2 diabetes mellitus with hyperglycemia; N20.0 Calculus of kidney; R74.01 Elevation of levels of liver transaminase levels; Z90.3 Acquired absence of stomach [part of]; Z79.84 Long term (current) use of oral hypoglycemic drugs; Z90.49 Acquired absence of other specified parts of digestive tract; Z79.899 Other long term (current) drug therapy
CPT/HCPCS: 36415; 74177; 80048; 80053; 80061; 81001; 81025; 82947; 83036; 83690; 83735; 84100; 84478; 85025; 96361; 96374; 96375; 99285; J1170; J1650; J2405; J2550; J3475; J3480; J7030; J7042; J7050; J7120; Q9967